=== PATIENT | female | born 1975 | race Two or more races ===

== ENCOUNTER 2018-09-28 22:53 | Emergency (ER) | payer OTHER ==
[2018-09-28] MEDS ORDERED: oxyCODONE-APAP 5-325MG 1 EACH TAB PO STA (23:16)
--- NOTE | 2018-09-28 23:19 | ED ---
Extremity Problem HPI - General Chief complaint: Extremity Problem,Nontraumatic Stated complaint: Leg Pain Time Seen by Provider: 09/28/18 23:09 Source: patient Mode of arrival: ambulatory Limitations: language barrier - History of Present Illness Initial comments: Patient is a 43-year-old female who presents with a chief complaint of right lower extremity pain. She is a history of a right knee replacement in April and a history of a pulmonary embolism, currently not on any anticoagulation. Patient states that this pain has been going on for about a week however much worse today. She cannot identify an inciting incident. There are no aggravating or alleviating factors. Timing is been constant. - Related Data Previous Rx's Medication Instructions Recorded Acetaminophen Tab [Tylenol Tab] 1,000 mg PO Q6HR #20 tablet 09/29/18 Ibuprofen [Motrin] 800 mg PO Q8H #20 tab 09/29/18 Lidocaine 5% Patch [Lidoderm 5% 1 patch TOPICAL DAILY #15 patch 09/29/18 Patch] Allergies Allergy/AdvReac Type Severity Reaction Status Date / Time adhesive Allergy Rash/Hives Verified 09/28/18 23:25 tramadol Allergy Nausea & Verified 09/28/18 23:25 Vomiting & Diarrhea Review of Systems ROS Statement: Those systems with pertinent positive or pertinent negative responses have been documented in the HPI. ROS Other: All systems not noted in ROS Statement are negative. Musculoskeletal: Reports: arthralgia Past Medical History Past Medical History: Asthma, Fibromyalgia History of Any Multi-Drug Resistant Organisms: None Reported Past Surgical History: Cholecystectomy, Orthopedic Surgery, Tubal Ligation Additional Past Surgical History / Comment(s): right knee Past Psychological History: Depression Smoking Status: Never smoker Past Alcohol Use History: None Reported Past Drug Use History: None Reported General Exam Limitations: language barrier General appearance: alert, in no apparent distress Head exam: Present: atraumatic, normocephalic Eye exam: Present: normal appearance ENT exam: Present: normal exam Neck exam: Present: normal inspection Respiratory exam: Present: normal lung sounds bilaterally. Absent: respiratory distress, wheezes Cardiovascular Exam: Present: regular rate, normal rhythm GI/Abdominal exam: Present: soft. Absent: distended, tenderness Rectal exam: Present: deferred Extremities exam: Present: calf tenderness, other (Patient has 2+ palpable pulses bilaterally in the lower extremities. There does not appear to be overt asymmetry between the limbs however the patient does have tenderness palpation of the right calf.) Back exam: Present: normal inspection Neurological exam: Present: alert, oriented X3 Psychiatric exam: Present: normal affect, normal mood Skin exam: Present: warm, dry, intact Course Vital Signs 09/28/18 23:01 Temperature 99.1 F Pulse Rate 85 Respiratory 16 Rate Blood Pressure 114/67 O2 Sat by Pulse 100 Oximetry Medical Decision Making - Medical Decision Making Patient presents with a chief complaint of right lower extremity pain. On initial evaluation, vitals are stable, patient is in no acute distress. She denies any chest pain or shortness of breath. Concern for DVT given past medical history. Clinically, patient does not appear to have any evidence of a pulmonary embolism. She will be evaluated with x-rays of the right knee and lower extremity duplex. Disposition Clinical Impression: Knee pain Disposition: HOME SELF-CARE Condition: Good Instructions (If sedation given, give patient instructions): Knee Pain (ED) Prescriptions: Lidocaine 5% Patch [Lidoderm 5% Patch] 1 patch TOPICAL DAILY #15 patch Ibuprofen [Motrin] 800 mg PO Q8H #20 tab Acetaminophen Tab [Tylenol Tab] 1,000 mg PO Q6HR #20 tablet Is patient prescribed a controlled substance at d/c from ED?: No Referrals: Demarco Welch MD [Primary Care Provider] - 1-2 days Emmanuel Horn MD [Medical Doctor] - 1-2 days
--- NOTE | 2018-09-28 23:45 | XR ---
EXAM: XR Right Knee, 3 views CLINICAL HISTORY: ITS.REASON XR Reason: Pain TECHNIQUE: Three views of the right knee. COMPARISON: No relevant prior studies available. FINDINGS: Bones/joints: Prior knee arthroplasty. No acute fracture. No dislocation. Soft tissues: Unremarkable. IMPRESSION: No acute fracture. Status post knee arthroplasty without signs of hardware complication.
--- NOTE | 2018-09-29 00:18 | US ---
EXAM: US Duplex Right Lower Extremity Veins CLINICAL HISTORY: ITS.REASON US Reason: Pain TECHNIQUE: Real-time duplex ultrasound scan of the right lower extremity veins integrating B-mode two-dimensional vascular structure, Doppler spectral analysis, color flow Doppler imaging and compression. COMPARISON: No relevant prior studies available. FINDINGS: Deep veins: Unremarkable. No DVT in the visualized common femoral, femoral, proximal deep femoral or popliteal veins. The veins demonstrate normal color flow, are normally compressible, with normal phasic flow and/or augmentation response. Superficial veins: Unremarkable. No thrombus in the visualized great saphenous vein. IMPRESSION: No evidence of deep venous thrombosis.
[2018-09-29] MEDS ORDERED: LIDOCAINE 5% PATCH TOPICAL ONE (00:44)
[2018-09-29] MEDS ORDERED: LIDOCAINE 5% PATCH TOPICAL SCH (01:00)
[2018-09-29 01:13] VITALS: BP 138/72; PULSE 75; RESP 18; TEMP 98.6
== END 2018-09-29 01:12 | disposition home or self-care (01) ==
LOC: EC 22:53
DX: M25.561 Pain in right knee (principal); Z86.711 Personal history of pulmonary embolism; Z88.5 Allergy status to narcotic agent; Z91.048 Other nonmedicinal substance allergy status; Z96.651 Presence of right artificial knee joint
CPT/HCPCS: 99284

== ENCOUNTER → 2018-10-20 | Outpatient (CLI) | payer OTHER ==
--- NOTE | 2018-10-20 15:22 | US ---
EXAMINATION TYPE: US thyroid st tissue head/neck DATE OF EXAM: 10/20/2018 COMPARISON: NONE CLINICAL HISTORY: E04.1 Thyroid nodule. Weight gain, hair loss GLAND SIZE: Right Lobe: 5.2 x 1.4 x 1.8 cm Overall Parenchyma: mildly heterogeneous Left Lobe: 5.1 x 1.5 x 1.5 cm Overall Parenchyma: mildly heterogeneous Isthmus Thickness: 0.3 cm NODULES RIGHT: # of nodules measured on right: 0 LEFT: # of nodules measured on left: 0 ISTHMUS: # of nodules measured in the isthmus: 0 Bilateral neck scanned, no evidence of lymphadenopathy. IMPRESSION: Mildly heterogenous thyroid gland without discrete nodule identified.
== END | disposition home or self-care (01) ==
LOC: RADUSWWP 14:39
PROVIDERS: ATTEND Family Medicine
DX: E04.1 Nontoxic single thyroid nodule (principal)
CPT/HCPCS: 76536

== ENCOUNTER → 2018-12-23 | Outpatient (CLI) | payer OTHER ==
--- NOTE | 2018-12-23 10:45 | XR ---
EXAMINATION TYPE: XR chest 2V DATE OF EXAM: 12/23/2018 COMPARISON: NONE HISTORY: Recent cough and follow-up for right lung nodule. TECHNIQUE: Frontal and lateral views of the chest are obtained. FINDINGS: There is no focal air space opacity, pleural effusion, or pneumothorax seen. The cardiac silhouette size is within normal limits. The osseous structures are intact. Cholecystectomy clips a re seen on the lateral view. IMPRESSION: No acute cardiopulmonary process. The described right lung nodule is not seen radiograph ically. If prior comparisons are made for available addendum could be performed. Additionally CT coul d assess for subcentimeter pulmonary nodules.
== END | disposition home or self-care (01) ==
LOC: RADXRMAIN 10:27
PROVIDERS: ATTEND Family Medicine
DX: R91.8 Other nonspecific abnormal finding of lung field (principal)
CPT/HCPCS: 71046

== ENCOUNTER 2019-01-29 13:39 | Emergency (ER) | payer OTHER ==
[2019-01-29] MEDS ORDERED: KETOROLAC 60 MG/2 ML VIAL IM STA (14:14)
[2019-01-29] MEDS ORDERED: predniSONE 50 MG TAB PO STA (14:15)
--- NOTE | 2019-01-29 14:29 | ED ---
General Adult HPI - General Chief complaint: Back Pain/Injury Stated complaint: Knee and back pain Time Seen by Provider: 01/29/19 13:59 Source: patient, RN notes reviewed, old records reviewed Mode of arrival: ambulatory Limitations: language barrier - History of Present Illness Initial comments: 43-year-old female patient presents ED chief complaint of lumbar back pain. Patient reports she with history of febrile myalgia and chronic back pain. Patient reports that has been worsening the last 3 days. Patient ports that demonstrated lumbar and right paralumbar regenerating down her posterior right leg. Patient has an infection symptoms. Patient denies any recent falls or trauma. Denies any lower extremity weakness, loss of bowel or bladder control, saddle anesthesia. Reports that feels similar to back pain she is experiencing a past. Denies any other complaints at this time. States that she cannot be . Systemic: Pt denies fatigue, fever/chills, rash. Pt denies weakness, night sweats, weight loss. Neuro: Pt denies headache, visual disturbances, syncope or pre-syncope. HEENT: Pt denies ocular discharge or irritation, otalgia, rhinorrhea, pharyngitis or notable lymphadenopathy. Cardiopulmonary: Pt denies chest pain, SOB, heart palpitations, dyspnea on exertion. Abdominal/GI: Pt denies abdominal pain, n/v/d. : Pt denies dysuria, burning w/ urination, frequency/urgency. Denies new onset urinary or bowel incontinence. MSK: Pt denies loss of strength or function in extremities. Neuro: Pt denies new onset weakness, paresthesias. - Related Data Previous Rx's Medication Instructions Recorded Ibuprofen [Motrin] 800 mg PO Q8H #20 tab 09/29/18 Cyclobenzaprine [Flexeril] 1 - 2 tab PO TID #20 tablet 01/29/19 predniSONE 50 mg PO DAILY 4 Days #4 tab 01/29/19 Allergies Allergy/AdvReac Type Severity Reaction Status Date / Time adhesive Allergy Rash/Hives Verified 01/29/19 13:56 tramadol Allergy Nausea & Verified 01/29/19 13:56 Vomiting & Diarrhea Review of Systems ROS Statement: Those systems with pertinent positive or pertinent negative responses have been documented in the HPI. ROS Other: All systems not noted in ROS Statement are negative. Past Medical History Past Medical History: Asthma, Fibromyalgia History of Any Multi-Drug Resistant Organisms: None Reported Past Surgical History: Cholecystectomy, Orthopedic Surgery, Tubal Ligation Additional Past Surgical History / Comment(s): right knee Past Psychological History: Depression Smoking Status: Never smoker Past Alcohol Use History: None Reported Past Drug Use History: None Reported General Exam - General Exam Comments Initial Comments: Constitutional: NAD, AOX3, Pt has pleasant affect. HEENT: NC/AT, trachea midline, neck supple, no lymphadenopathy. Posterior pharynx non erythematous, without exudates. External ears appear normal, without discharge. Mucous membranes moist. Eyes PERRLA, EOM intact. There is no scleral icterus. No pallor noted. Cardiopulmonary: RRR, no murmurs, rubs or gallops, no JVD noted. Lungs CTAB in anterior and posterior rogers. No peripheral edema. Abdominal exam: Abdomen soft and non-distended. Abdomen non-tender to palpation in all 4 quadrants. Bowel sounds active in LLQ. No hepatosplenomegaly. No ecchymosis Neuro: CN II-XII grossly intact. No nuchal rigidity. No raccon eyes, no elizabeth sign, no hemotympanum. No cervical spinal tenderness. MSK: Right paralumbar region tender to palpation. 5 out of 5 strength psoas quadriceps muscles. Sensation intact. Patient is ambulatory. Right Straight leg raise positive, left straight leg raise negative. No posterior calf tenderness bilaterally, homans sign negative bilaterally. Posterior tibialis and radial pulse +2 bilaterally. Sensation intact in upper and lower extremities. Full active ROM in upper and lower extremities, 5/5 stregnth. Limitations: language barrier Course Vital Signs 01/29/19 13:54 Temperature 98.1 F Pulse Rate 93 Respiratory 20 Rate Blood Pressure 110/67 O2 Sat by Pulse 99 Oximetry Medical Decision Making - Medical Decision Making 43-year-old female patient with a chief complaint of exacerbation of chronic paralumbar back pain. Patient reports that she cannot be . Patient will signs stable, afebrile. Physical exam was consistent with paralumbar back strain with mild radiculopathy. She declined plain films. Patient will be discharged with steroids, muscle relaxer, advised to use anti-inflammatories, follow up with primary care provider and will be given orthopedic follow sym ptoms persist. Case discussed with Dr. Torres. Disposition Clinical Impression: Lumbar back pain Disposition: HOME SELF-CARE Condition: Stable Instructions (If sedation given, give patient instructions): Acute Low Back Pain (ED) Additional Instructions: Patient to adhere to previously discussed treatment plan and will take medication(s) as directed. Patient to follow up with PCP in 1-2 days. Patient to return to ED if symptoms do not improve. Follow-up with primary care provider tomorrow. Follow with orthopedic consult symptoms persist. Return to ER if condition worsens. Prescriptions: Cyclobenzaprine [Flexeril] 1 - 2 tab PO TID #20 tablet predniSONE 50 mg PO DAILY 4 Days #4 tab Is patient prescribed a controlled substance at d/c from ED?: No Referrals: Demarco Welch MD [Primary Care Provider] - 1-2 days Cira Rivas DO [Doctor of Osteopathic Medicine] - 1-2 days
[2019-01-29] MEDS ORDERED: CYCLOBENZAPRINE 5 MG TAB PO STA (15:08)
[2019-01-29 15:21] VITALS: BP 112/70; PULSE 87; RESP 18; TEMP 98
== END 2019-01-29 15:20 | disposition home or self-care (01) ==
LOC: EC 13:39
DX: M54.5 Low back pain (principal); Z88.5 Allergy status to narcotic agent; Z91.048 Other nonmedicinal substance allergy status; Z53.20 Procedure and treatment not carried out because of patient's decision for unspecified reasons
CPT/HCPCS: 99284; 96372; J1885; J7512

== ENCOUNTER → 2019-02-19 | Outpatient (CLI) | payer OTHER ==
--- NOTE | 2019-02-19 12:39 | CT ---
EXAMINATION TYPE: CT knee RT wo con DATE OF EXAM: 02/19/2019 COMPARISON: CT 9 6.651 HISTORY: TOTAL RIGHT ARTHROPLASTY CT DLP: 502.3 mGycm Automated exposure control for dose reduction was used. FINDINGS: Right knee prosthesis is present. This causes beam hardening artifact and may have some limitation on the exam. No suspicious lucency adjacent to suggest loosening is evident. No acute fractures are evident. Muscl e signal and subcutaneous signal appears normal. No abnormal fluid collections are identified. IMPRESSION: NORMAL POST RIGHT KNEE PROSTHESIS.
[2019-02-19 13:04] LABS: Basophils # (A) 0.1 k/uL (0-0.2); Basophils % (A) 1 %; Eosinophils # (A) 0.1 k/uL (0-0.7); Eosinophils % (A) 1 %; HGB 11.8 gm/dL (11.4-16.0); Lymphocytes # (A) 1.8 k/uL (1.0-4.8); Lymphocytes % (A) 22 %; MCH 28.7 pg (25.0-35.0); MCHC 32.9 g/dL (31.0-37.0); MCV 87.4 fL (80.0-100.0); Mean Platelet Volume 6.4; Monocytes # (A) 0.3 k/uL (0-1.0); Monocytes % (A) 3 %; Neutrophils # (A) 5.9 k/uL (1.3-7.7); Neutrophils % (A) 72 %; Platelet Count 279 k/uL (150-450); RBC 4.13 m/uL (3.80-5.40); RDW 13.9 % (11.5-15.5); WBC 8.2 k/uL (3.8-10.6)
[2019-02-19 14:07] LABS: Erythrocyte Sedimentation Rate 28 mm/hr (0-20)
[2019-02-19 14:31] LABS: ALT 19 U/L (9-52); AST 19 U/L (14-36); African American GFR (CKD) >90 (>60 ml/min/1.73 sqM); Albumin 3.8 g/dL (3.5-5.0); Alkaline Phosphatase 79 U/L (38-126); Anion Gap 5 mmol/L; Blood Urea Nitrogen 13 mg/dL (7-17); C Reactive Protein 14.7 mg/L (<10.0); Calcium 8.9 mg/dL (8.4-10.2); Carbon Dioxide 29 mmol/L (22-30); Chloride 104 mmol/L (98-107); Cholesterol 147 mg/dL (<200); Glucose 89 mg/dL (74-99); HDL Cholesterol 52 mg/dL (40-60); LDL Cholesterol,Calculated 81 mg/dL (0-99); Potassium 4.2 mmol/L (3.5-5.1); Sodium 138 mmol/L (137-145); Total Bilirubin 0.5 mg/dL (0.2-1.3); Total Protein 7.4 g/dL (6.3-8.2); Triglycerides 68 mg/dL (<150)
[2019-02-19 20:17] LABS: Hemoglobin A1C 5.1 % (4.0-6.0)
[2019-02-20 02:40] LABS: Folate, Serum 10.1 ng/mL
== END | disposition home or self-care (01) ==
LOC: RADCTMAIN 12:03
PROVIDERS: ATTEND Orthopaedic Surgery
DX: Z47.1 Aftercare following joint replacement surgery (principal); J45.50 Severe persistent asthma, uncomplicated; M79.7 Fibromyalgia; M25.561 Pain in right knee; Z96.651 Presence of right artificial knee joint
CPT/HCPCS: 36415; 80053; 80061; 82306; 82607; 82746; 83036; 84443; 84480; 84550; 85025; 85652; 86038; 86140

== ENCOUNTER 2019-07-07 20:32 | Emergency (ER) | payer OTHER ==
[2019-07-07] MEDS ORDERED: KETOROLAC 30 MG/ML 1 ML VIAL IVP STA (21:58)
[2019-07-07] MEDS ORDERED: SODIUM CHLORIDE 0.9% 1,000 ML IV STA (21:58)
[2019-07-07] MEDS ORDERED: ONDANSETRON 4 MG/2 ML VIAL IVP STA (21:58)
[2019-07-07 21:59] LABS: Appearance,Urine Clear (Clear); Bilirubin,Urine Negative (Negative); Blood,Urine Negative (Negative); Color,Urine Yellow; Glucose,Urine (UA) Negative (Negative); Ketones,Urine Negative (Negative); Leukocyte Esterase,Urine Negative (Negative); Nitrite,Urine Negative (Negative); PH, Urine 7.5 (5.0-8.0); Protein,Urine Negative (Negative); Specific Gravity,Urine 1.014 (1.001-1.035); Urobilinogen,Urine <2.0 mg/dL (<2.0)
[2019-07-07 22:37] LABS: ALT 17 U/L (4-34); AST 25 U/L (14-36); African American GFR (CKD) >90 (>60 ml/min/1.73 sqM); Albumin 3.9 g/dL (3.5-5.0); Alkaline Phosphatase 71 U/L (38-126); Amylase 48 U/L (30-110); Anion Gap 6 mmol/L; Blood Urea Nitrogen 9 mg/dL (7-17); Calcium 8.8 mg/dL (8.4-10.2); Carbon Dioxide 25 mmol/L (22-30); Chloride 104 mmol/L (98-107); Glucose 96 mg/dL (74-99); Non-African American GFR(CKD) >90 (>60 ml/min/1.73 sqM); Potassium 4.4 mmol/L (3.5-5.1); Sodium 135 mmol/L (137-145); Total Bilirubin 0.4 mg/dL (0.2-1.3); Total Protein 7.4 g/dL (6.3-8.2)
[2019-07-07 22:38] LABS: Basophils % (A) 0 %; Eosinophils # (A) 0.1 k/uL (0-0.7); Eosinophils % (A) 1 %; HCT 35.9 % (34.0-46.0); HGB 11.6 gm/dL (11.4-16.0); Lymphocytes # (A) 1.8 k/uL (1.0-4.8); Lymphocytes % (A) 19 %; MCH 28.2 pg (25.0-35.0); MCHC 32.3 g/dL (31.0-37.0); MCV 87.2 fL (80.0-100.0); Monocytes # (A) 0.4 k/uL (0-1.0); Monocytes % (A) 4 %; Neutrophils # (A) 6.9 k/uL (1.3-7.7); Neutrophils % (A) 74 %; Platelet Count 253 k/uL (150-450); RBC 4.12 m/uL (3.80-5.40); RDW 14.4 % (11.5-15.5); WBC 9.4 k/uL (3.8-10.6)
[2019-07-07] MEDS ORDERED: HYDROmorphone 0.5 MG/0.5 ML SYRINGE IVP STA (23:34)
[2019-07-08] MEDS ORDERED: ACET/COD 300 MG/30 MG STARTER PACK 6 TAB BTL PO STA (00:13)
--- NOTE | 2019-07-08 00:13 | ED ---
General Adult HPI - General Chief complaint: Abdominal Pain Stated complaint: Kidney Pain Time Seen by Provider: 07/07/19 21:47 Source: patient, RN notes reviewed Mode of arrival: ambulatory Limitations: no limitations - History of Present Illness Initial comments: 43-year-old female with a past medical history of asthma and fibromyalgia presents to the emergency department for right flank pain. This has been ongoing since yesterday. Denies any pain in the abdomen. Denies any dysuria. Denies any difficulty urinating. Patient was seen at another facility yesterday for similar complaint. Denies fevers or chills. States she is currently taking an antibiotic for urinary tract infection.Patient has no other complaints at this time including shortness of breath, chest pain, abdominal pain, nausea or vomiting, headache, or visual changes. - Related Data Previous Rx's Medication Instructions Recorded Ibuprofen [Motrin] 800 mg PO Q8H #20 tab 09/29/18 Cyclobenzaprine [Flexeril] 1 - 2 tab PO TID #20 tablet 01/29/19 predniSONE 50 mg PO DAILY 4 Days #4 tab 01/29/19 Allergies Allergy/AdvReac Type Severity Reaction Status Date / Time adhesive Allergy Rash/Hives Verified 07/07/19 21:20 tramadol Allergy Nausea & Verified 07/07/19 21:20 Vomiting & Diarrhea Review of Systems ROS Statement: Those systems with pertinent positive or pertinent negative responses have been documented in the HPI. ROS Other: All systems not noted in ROS Statement are negative. Past Medical History Past Medical History: Asthma, Fibromyalgia History of Any Multi-Drug Resistant Organisms: None Reported Past Surgical History: Cholecystectomy, Orthopedic Surgery, Tubal Ligation Additional Past Surgical History / Comment(s): right knee Past Psychological History: Depression Smoking Status: Never smoker Past Alcohol Use History: None Reported Past Drug Use History: None Reported General Exam Limitations: no limitations General appearance: alert, in no apparent distress Head exam: Present: atraumatic, normocephalic, normal inspection Eye exam: Present: normal appearance, PERRL, EOMI. Absent: scleral icterus, conjunctival injection, periorbital swelling ENT exam: Present: normal exam, mucous membranes moist Neck exam: Present: normal inspection, full ROM. Absent: tenderness, meningismus Respiratory exam: Present: normal lung sounds bilaterally. Absent: respiratory distress, wheezes, rales, rhonchi, stridor Cardiovascular Exam: Present: regular rate, normal rhythm, normal heart sounds. Absent: systolic murmur, diastolic murmur, rubs, gallop, clicks GI/Abdominal exam: Present: soft, normal bowel sounds. Absent: distended, tenderness (No abdominal tenderness), guarding, rebound, rigid Back exam: Present: CVA tenderness (R). Absent: CVA tenderness (L) Course Vital Signs 07/07/19 21:17 Temperature 98.2 F Pulse Rate 86 Respiratory 20 Rate Blood Pressure 121/74 O2 Sat by Pulse 99 Oximetry Medical Decision Making - Medical Decision Making Vitals are stable. CBC and CMP are unremarkable. Urinalysis is negative. X- ray KUB showed a negative x-ray. Patient was given Toradol which did not help with her pain. She was then given Dilaudid which did help. Patient does have a ride home. I reviewed Skin report from [facility] from 07/07/2019 which showed a new mild to moderate right-sided hydronephrosis without obstructing calculus, consider vesicoureteral reflux or delayed excretion from slightly prominent anteverted uterus with a hydroureter terminates at this level. Other etiologies not excluded. Otherwise no new acute finding to present I discussed that patient needs to follow up with urology in 1-2 days. She'll continue the antibiotic although urine at this time looks clear. She'll return for any worsening symptoms. - Lab Data Result diagrams: 07/07/19 22:16 07/07/19 22:16 Lab Results 07/07/19 07/07/19 07/07/19 Range/Units 21:26 21:26 22:16 WBC 9.4 (3.8-10.6) k/uL RBC 4.12 (3.80-5.40) m/uL Hgb 11.6 (11.4-16.0) gm/dL Hct 35.9 (34.0-46.0) % MCV 87.2 (80.0-100.0) fL MCH 28.2 (25.0-35.0) pg MCHC 32.3 (31.0-37.0) g/dL RDW 14.4 (11.5-15.5) % Plt Count 253 (150-450) k/uL Neutrophils % 74 % Lymphocytes % 19 % Monocytes % 4 % Eosinophils % 1 % Basophils % 0 % Neutrophils # 6.9 (1.3-7.7) k/uL Lymphocytes # 1.8 (1.0-4.8) k/uL Monocytes # 0.4 (0-1.0) k/uL Eosinophils # 0.1 (0-0.7) k/uL Basophils # 0.0 (0-0.2) k/uL Sodium (137-145) mmol/L Potassium (3.5-5.1) mmol/L Chloride (98-107) mmol/L Carbon Dioxide (22-30) mmol/L Anion Gap mmol/L BUN (7-17) mg/dL Creatinine (0.52-1.04) mg/dL Est GFR (CKD-EPI)AfAm (>60 ml/min/1.73 sqM) Est GFR (CKD-EPI)NonAf (>60 ml/min/1.73 sqM) Glucose (74-99) mg/dL Calcium (8.4-10.2) mg/dL Total Bilirubin (0.2-1.3) mg/dL AST (14-36) U/L ALT (4-34) U/L Alkaline Phosphatase (38-126) U/L Total Protein (6.3-8.2) g/dL Albumin (3.5-5.0) g/dL Amylase (30-110) U/L Lipase (23-300) U/L Urine Color Yellow Urine Appearance Clear (Clear) Urine pH 7.5 (5.0-8.0) Ur Specific [place] 1.014 (1.001-1.035) Urine Protein Negative (Negative) Urine Glucose (UA) Negative (Negative) Urine Ketones Negative (Negative) Urine Blood Negative (Negative) Urine Nitrite Negative (Negative) Urine Bilirubin Negative (Negative) Urine Urobilinogen <2.0 (<2.0) mg/dL Ur Leukocyte Esterase Negative (Negative) Urine HCG, Qual Not Detected (Not Detectd) 07/07/19 Range/Units 22:16 WBC (3.8-10.6) k/uL RBC (3.80-5.40) m/uL Hgb (11.4-16.0) gm/dL Hct (34.0-46.0) % MCV (80.0-100.0) fL MCH (25.0-35.0) pg MCHC (31.0-37.0) g/dL RDW (11.5-15.5) % Plt Count (150-450) k/uL Neutrophils % % Lymphocytes % % Monocytes % % Eosinophils % % Basophils % % Neutrophils # (1.3-7.7) k/uL Lymphocytes # (1.0-4.8) k/uL Monocytes # (0-1.0) k/uL Eosinophils # (0-0.7) k/uL Basophils # (0-0.2) k/uL Sodium 135 L (137-145) mmol/L Potassium 4.4 (3.5-5.1) mmol/L Chloride 104 (98-107) mmol/L Carbon Dioxide 25 (22-30) mmol/L Anion Gap 6 mmol/L BUN 9 (7-17) mg/dL Creatinine 0.76 (0.52-1.04) mg/dL Est GFR (CKD-EPI)AfAm >90 (>60 ml/min/1.73 sqM) Est GFR (CKD-EPI)NonAf >90 (>60 ml/min/1.73 sqM) Glucose 96 (74-99) mg/dL Calcium 8.8 (8.4-10.2) mg/dL Total Bilirubin 0.4 (0.2-1.3) mg/dL AST 25 (14-36) U/L ALT 17 (4-34) U/L Alkaline Phosphatase 71 (38-126) U/L Total Protein 7.4 (6.3-8.2) g/dL Albumin 3.9 (3.5-5.0) g/dL Amylase 48 (30-110) U/L Lipase 62 (23-300) U/L Urine Color Urine Appearance (Clear) Urine pH (5.0-8.0) Ur Specific [place] (1.001-1.035) Urine Protein (Negative) Urine Glucose (UA) (Negative) Urine Ketones (Negative) Urine Blood (Negative) Urine Nitrite (Negative) Urine Bilirubin (Negative) Urine Urobilinogen (<2.0) mg/dL Ur Leukocyte Esterase (Negative) Urine HCG, Qual (Not Detectd) Disposition Clinical Impression: Hydronephrosis Disposition: HOME SELF-CARE Condition: Good Additional Instructions: Take Motrin and Tylenol for pain. If pain is severe take Tylenol 3. Do not drive or operate machinery while taking this. Please follow up with urology in 1-2 days. Return to the emergency department if you have any worsening symptoms. Is patient prescribed a controlled substance at d/c from ED?: No Referrals: Sondra Ortiz MD [Primary Care Provider] - 1-2 days Win Garg MD [STAFF PHYSICIAN] - 1-2 days Time of Disposition: 00:12
--- NOTE | 2019-07-08 00:17 | XR ---
EXAMINATION TYPE: XR KUB DATE OF EXAM: 07/07/2019 COMPARISON: NONE HISTORY: Pain TECHNIQUE: 2 views upright FINDINGS: Bowel gas pattern is normal. There is no sign of intestinal obstruction or pneumoperitoneum . Fecal pattern is normal. Lung bases are clear. There are no pathologic calcifications over the kidneys. IMPRESSION: Nonacute abdomen.
[2019-07-08 00:20] VITALS: BP 125/65; PULSE 70; RESP 18; TEMP 98
== END 2019-07-08 00:22 | disposition home or self-care (01) ==
LOC: EC 20:32
DX: N13.30 Unspecified hydronephrosis (principal); N85.4 Malposition of uterus; Z91.048 Other nonmedicinal substance allergy status; Z88.6 Allergy status to analgesic agent; Z90.49 Acquired absence of other specified parts of digestive tract
CPT/HCPCS: 36415; 80053; 82150; 83690; 85025; 81003; 81025; 74018; 99284; 96374; 96375 ×2; 96361 ×2; J2405; J1885; J1170

== ENCOUNTER 2019-10-29 18:50 | Emergency (ER) | payer OTHER ==
[2019-10-29 18:54] VITALS: BP 127/68; PULSE 72; RESP 16; TEMP 98.9
[2019-10-29] MEDS ORDERED: KETOROLAC 60 MG/2 ML VIAL IM STA (19:10)
--- NOTE | 2019-10-29 19:12 | ED ---
Lower Extremity Injury HPI - General Chief Complaint: Extremity Injury, Lower Stated Complaint: rt knee pain Time Seen by Provider: 10/29/19 19:02 Source: patient Mode of arrival: wheelchair Limitations: no limitations - History of Present Illness Initial Comments: Patient is a 44-year-old female presenting to the emergency Department with complaints of right knee pain 2-3 days. Patient speaks little Armenian, is helping to translate. She does have history of total knee replacement approximately one year ago. states that there seems to be an issue with the hardware and she is set to have another surgery at the end of this month. She denies any injuries or fall to the knee. She states she does have a history of a DVT in the right lower leg after she had her surgery. She is no longer on blood thinners. She denies any recent fever, chills, nausea, vomiting. She states the pain, started out of nowhere and has been progressing. She has no further complaints at this time. Upon arrival to the ER, her vitals are stable. - Related Data Previous Rx's Medication Instructions Recorded Ibuprofen [Motrin] 800 mg PO Q8H #20 tab 09/29/18 Cyclobenzaprine [Flexeril] 1 - 2 tab PO TID #20 tablet 01/29/19 predniSONE 50 mg PO DAILY 4 Days #4 tab 01/29/19 Hydrocodone/Acetaminophen [[place] 1 tab PO Q6HR PRN #10 tab 10/29/19 5-325] Allergies Allergy/AdvReac Type Severity Reaction Status Date / Time adhesive Allergy Rash/Hives Verified 10/29/19 18:54 tramadol Allergy Nausea & Verified 10/29/19 18:54 Vomiting & Diarrhea Review of Systems ROS Statement: Those systems with pertinent positive or pertinent negative responses have been documented in the HPI. ROS Other: All systems not noted in ROS Statement are negative. Past Medical History Past Medical History: Asthma, Fibromyalgia History of Any Multi-Drug Resistant Organisms: None Reported Past Surgical History: Cholecystectomy, Orthopedic Surgery, Tubal Ligation Additional Past Surgical History / Comment(s): right knee Past Psychological History: Depression Smoking Status: Never smoker Past Alcohol Use History: None Reported Past Drug Use History: None Reported General Exam - General Exam Comments Initial Comments: GENERAL: Well-appearing, well-nourished and in no acute distress. HEAD: Atraumatic, normocephalic. EYES: Pupils equal round and reactive to light, extraocular movements intact, sclera anicteric, conjunctiva are normal. ENT: TMs normal, nares patent, oropharynx clear without exudates. Moist mucous membranes. NECK: Normal range of motion, supple without lymphadenopathy or JVD. LUNGS: Breath sounds clear to auscultation bilaterally and equal. No wheezes rales or rhonchi. HEART: Regular rate and rhythm without murmurs, rubs or gallops. ABDOMEN: Soft, nontender, normoactive bowel sounds. No guarding, no rebound. No masses appreciated. : Deferred EXTREMITIES: Pain with palpation of the right anterior and posterior aspects of the knee, decreased range of motion secondary to pain. She is neurovascular intact. There is no overlying erythema or significant swelling. No clubbing or cyanosis. NEUROLOGICAL: Normal speech, normal gait. PSYCH: Normal mood, normal affect. SKIN: Warm, Dry, normal turgor, no rashes or lesions noted. Limitations: no limitations Course Vital Signs 10/29/19 18:51 Temperature 98.9 F Pulse Rate 72 Respiratory 16 Rate Blood Pressure 127/68 O2 Sat by Pulse 99 Oximetry Medical Decision Making - Medical Decision Making Patient is a 44-year-old female here for right knee pain 3 days. She has history of right total knee replacement one year ago. No fever. History of DVT in right lower extremity, not currently on thinners. X-ray of the right knee reveals no acute fractures, dislocations, hardware is in place. Ultrasound of the right lower extremity reveals no evidence of an acute DVT. I did discuss these findings with the patient. I recommended she follow up with her surgeon. She was given Toradol in the ER. She is in agreement with this plan of care. She is stable for discharge and patient is agreement with this plan of care. Case discussed with Dr. Viera. Disposition Clinical Impression: Right knee pain Disposition: HOME SELF-CARE Condition: Stable Instructions (If sedation given, give patient instructions): Knee Pain (ED) Additional Instructions: Please return to the Emergency Department if symptoms worsen or any other concerns. Please follow up with orthopedic surgeon as discussed. Make sure to elevate the leg above the heart level as well as use ice to the area. Prescriptions: Hydrocodone/Acetaminophen [[place] 5-325] 1 tab PO Q6HR PRN #10 tab PRN Reason: Pain Is patient prescribed a controlled substance at d/c from ED?: Yes When asked, does pt state using other controlled substances?: No If prescribed controlled substance>3 days was MAPS reviewed?: Prescribed <3 Days If opioid is for acute pain is fill amount 7 days or less?: Yes If Rx opioid, was Start Talking consent form obtained?: Yes Referrals: Sondra Ortiz MD [Primary Care Provider] - 1-2 days
--- NOTE | 2019-10-29 19:45 | XR ---
EXAMINATION TYPE: XR knee complete RT DATE OF EXAM: 10/29/2019 CLINICAL HISTORY: September 28, 2018 TECHNIQUE: Three views of the right knee are obtained. COMPARISON: None. FINDINGS: There is no acute fracture/dislocation. Total knee arthroplasty is in place. The overlying soft tissue appears unremarkable. IMPRESSION: There is no acute fracture or dislocation.ICD 10 NO FRACTURE, INITIAL EVALUATION
--- NOTE | 2019-10-29 20:14 | US ---
EXAMINATION TYPE: US venous doppler duplex LE RT DATE OF EXAM: 10/29/2019 7:11 PM COMPARISON: US CLINICAL HISTORY: pain, swelling. Pain and swelling x 1 year since knee replacement 1 year ago. Patie nt had a second surgery on the knee 10/19/2019. Hx of DVT and PE. Patient does not take a blood thinne r. SIDE PERFORMED: Right TECHNIQUE: The lower extremity deep venous system is examined utilizing real time linear array sonog ridge with graded compression, doppler sonography and color-flow sonography. VESSELS IMAGED: External Iliac Vein (EIV) Common Femoral Vein Deep Femoral Vein Greater Saphenous Vein * Femoral Vein Popliteal Vein Small Saphenous Vein * Proximal Calf Veins (* superficial vessels) Right Leg: No evidence of DVT in veins imaged at this time from prox calf veins to EIV. IMPRESSION: No evidence for DVT at this time.
== END 2019-10-29 20:36 | disposition home or self-care (01) ==
LOC: EC 18:50
DX: M25.561 Pain in right knee (principal); Z88.6 Allergy status to analgesic agent; Z91.048 Other nonmedicinal substance allergy status; Z96.651 Presence of right artificial knee joint; Z86.718 Personal history of other venous thrombosis and embolism
CPT/HCPCS: 73562; 93971; 99284; 96372; J1885

== ENCOUNTER 2020-04-27 14:19 | Emergency (ER) | payer OTHER ==
--- NOTE | 2020-04-27 15:01 | XR ---
EXAMINATION TYPE: XR chest 1V portable DATE OF EXAM: 04/27/2020 Comparison: 12/23/2018 Clinical History: 44-year-old female cough Findings: AP portable technique limited by underpenetration and large body habitus. Heart size is accentuated l ikely due to portable technique. There is some patchy medial right basilar opacity noted. No other co nsolidation or pleural effusion. Impression: Some patchy medial right basilar atelectasis versus early infiltrate. Clinically correlate.
[2020-04-27] MEDS ORDERED: cefTRIAXone 1,000 MG VIAL (IM USE) IM STA (15:52)
--- NOTE | 2020-04-27 15:58 | ED ---
General Adult HPI - General Chief complaint: Upper Respiratory Infection Stated complaint: Headache,Body aches Time Seen by Provider: 04/27/20 14:25 Source: patient, RN notes reviewed Mode of arrival: ambulatory Limitations: no limitations - History of Present Illness Initial comments: 44-year-old female with a past medical history of asthma, fibromyalgia presents to the emergency room for a chief complaint of cough. Patient has had a cough for the past couple days. She has also had fever in the past. She states she has taken NSAIDs today. She denies shortness of breath. Patient denies any known Covid exposures. She does admit to congestion and a slight sore throat. She denies any chest pain. Denies any abdominal pain or nausea vomiting. Patient has no other complaints at this time including shortness of breath, chest pain, abdominal pain, nausea or vomiting, headache, or visual changes. - Related Data Previous Rx's Medication Instructions Recorded Ibuprofen [Motrin] 800 mg PO Q8H #20 tab 09/29/18 Cyclobenzaprine [Flexeril] 1 - 2 tab PO TID #20 tablet 01/29/19 predniSONE 50 mg PO DAILY 4 Days #4 tab 01/29/19 Hydrocodone/Acetaminophen [[place] 1 tab PO Q6HR PRN #10 tab 10/29/19 5-325] Albuterol Inhaler [Ventolin Hfa 2 puff INHALATION RT-QID PRN #1 04/27/20 Inhaler] inhaler Azithromycin [Zithromax Z-pack (6 250 mg PO DIRECTED #6 tab 04/27/20 tabs)] predniSONE 50 mg PO DAILY #5 tablet 04/27/20 Allergies Allergy/AdvReac Type Severity Reaction Status Date / Time adhesive Allergy Rash/Hives Verified 04/27/20 14:23 tramadol Allergy Nausea & Verified 04/27/20 14:23 Vomiting & Diarrhea Review of Systems ROS Statement: Those systems with pertinent positive or pertinent negative responses have been documented in the HPI. ROS Other: All systems not noted in ROS Statement are negative. Past Medical History Past Medical History: Asthma, Fibromyalgia History of Any Multi-Drug Resistant Organisms: None Reported Past Surgical History: Cholecystectomy, Orthopedic Surgery, Tubal Ligation Additional Past Surgical History / Comment(s): right knee Past Psychological History: Depression Smoking Status: Never smoker Past Alcohol Use History: None Reported Past Drug Use History: None Reported General Exam Limitations: no limitations General appearance: alert, in no apparent distress Head exam: Present: atraumatic, normocephalic, normal inspection Eye exam: Present: normal appearance, PERRL, EOMI. Absent: scleral icterus, conjunctival injection, periorbital swelling ENT exam: Present: normal exam, normal oropharynx (Uvula midline, no tonsillar exudates bilaterally), mucous membranes moist, TM's normal bilaterally, normal external ear exam Neck exam: Present: normal inspection, full ROM. Absent: tenderness, meningismus, lymphadenopathy Respiratory exam: Present: normal lung sounds bilaterally. Absent: respiratory distress, wheezes, rales, rhonchi, stridor Cardiovascular Exam: Present: regular rate, normal rhythm, normal heart sounds. Absent: systolic murmur, diastolic murmur, rubs, gallop, clicks GI/Abdominal exam: Present: soft, normal bowel sounds. Absent: distended, tenderness, guarding, rebound, rigid Neurological exam: Present: alert Course Vital Signs 04/27/20 04/27/20 14:20 15:20 Temperature 98.7 F Pulse Rate 87 Respiratory 20 16 Rate Blood Pressure 120/77 O2 Sat by Pulse 100 Oximetry Medical Decision Making - Medical Decision Making Vitals are stable. 100% on room air. Afebrile. Normal heart rate. Physical exam is unremarkable. She does have a mild cough. No chest pain or shortness of breath. Chest x-ray does show some patchy medial right basilar atelectasis versus early infiltrate. Given fever and cough she will be treated with azithromycin. Coronavirus test is pending. PCR was done instead of a rapid as hospitals requesting these be done for discharge patient's given shortage. However patient will quarantine until she has her results. She will take Motrin and Tylenol for fever. She will take vitamins as we discussed. She will also be given steroid and inhaler as she does have a history of asthma. She will return here for any worsening symptoms such as shortness of breath which were discussed with her. Disposition Clinical Impression: Pneumonia, Cough, COVID-19 virus test result unknown Disposition: HOME SELF-CARE Condition: Good Instructions (If sedation given, give patient instructions): Pneumonia (ED) Additional Instructions: Please take antibiotic as directed. Take Motrin and Tylenol as needed for fever. Please take vitamins C, D, and zinc. Follow up on Coronavirus results and make sure to quarantine until you have these. Return to the emergency room for any worsening symptoms. Prescriptions: predniSONE 50 mg PO DAILY #5 tablet Albuterol Inhaler [Ventolin Hfa Inhaler] 2 puff INHALATION RT-QID PRN #1 inhaler PRN Reason: Shortness Of Breath Azithromycin [Zithromax Z-pack (6 tabs)] 250 mg PO DIRECTED #6 tab Is patient prescribed a controlled substance at d/c from ED?: No Referrals: Sondra Ortiz MD [Primary Care Provider] - 1-2 days Time of Disposition: 15:56
[2020-04-27 16:15] VITALS: BP 134/73; PULSE 74; RESP 18; TEMP 98.2
== END 2020-04-27 16:15 | disposition home or self-care (01) ==
LOC: EC 14:19
DX: J18.9 Pneumonia, unspecified organism (principal); Z20.828 Contact with and (suspected) exposure to other viral communicable diseases; Z88.5 Allergy status to narcotic agent; Z91.048 Other nonmedicinal substance allergy status
CPT/HCPCS: 71045; 99283; 96372; U0003; J0696

== ENCOUNTER → 2020-10-12 | Outpatient (CLI) | payer OTHER ==
[2020-10-12 16:15] VITALS: BMI 44.2
[2020-10-12 16:34] VITALS: BP 121/70; PULSE 83; RESP 18; TEMP 98.1
--- NOTE | 2020-10-12 16:43 | P.HPBAR ---
Bariatric H&P - History & Physicial H&P Date: 10/12/20 History & Physicial: Visit/CC: initial visit Patient initial contact: Initial weight: Initial weight in pounds: Height: 4 ft 11.5 in Initial BMI: Last weight: Current weight: 101.151 kg Current weight in pounds: 223.00 Current BMI: 44.2 [place] body weight (based on NIH guidelines): 44.225 kg Excess body weight loss: The patient is a 45 year-old F who presents for Bariatric Assessment. DATE OF SERVICE: 10/12/2020 REASON FOR CONSULTATION: Initial bariatric evaluation. HISTORY OF PRESENT ILLNESS: Venessa Romo is a 45-year-old female who comes with lifelong morbid obesity. She is looking into the gastric sleeve adelaida rectomy. Her brother has obesity. 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 She has tried Keto diet, drop count associate, Adipex and walking. Her most weight loss is 4 to 5 pounds. She has gastroesophageal reflux disease. She reports trouble with spicey foods. She does not have her gallbladder. She denies food gets stuck. She has prior right knee replacement. She reports severe lower back pain and has mild hip pain. She has blood clots from surgery. She needs 1 year of medical supervised weight loss. She has completed 2 months. She had cholecytectomy. She had tubal ligation. She presents first time in consultation for surgical weight loss. At height of 4 feet 11.5 inches, her ideal body weight is 123 pounds. Highest weight is 225 pounds with body mass index 44.8. She comes in 223 pounds. Her body mass index is 44.3. She is 100 pounds overweight. PAST MEDICAL HISTORY: 1. Morbid obesity due to excess calories 2. Body mass index of 44.3, initial 3. Chronic obstructive pulmonary disease with asthma 4. Fibromyalgia 5. Obstructive sleep apnea 6. Osteoarthritis of the knees. 7. Gastroesophageal reflux disease. 8. Osteoarthritis lower back 9. Osteoarthritis of the hip 10. DVT PAST SURGICAL HISTORY: 1. Cholecystectomy 2. Tubal ligation 3. Bilateral knee replacement HOME MEDICATIONS: Home Medications Medication Instructions Recorded Confirmed Beclomethasone Dipropionate [Qvar 2 puff PO BID 10/12/20 12/14/20 80mcg Redihaler] Famotidine [Pepcid] 10 mg PO HS 12/14/20 12/14/20 Previous Rx's Medication Instructions Recorded Hydrocodone/Acetaminophen [[place] 1 tab PO Q6HR PRN #10 tab 10/29/19 5-325] Albuterol Inhaler [Ventolin Hfa 2 puff INHALATION RT-QID PRN #1 04/27/20 Inhaler] inhaler Omeprazole [PriLOSEC] 40 mg PO DAILY #14 cap 12/14/20 ALLERGIES: Allergies Allergy/AdvReac Type Severity Reaction Status Date / Time adhesive Allergy Rash/Hives Verified 12/14/20 14:37 tramadol Allergy Nausea & Verified 12/14/20 14:37 Vomiting & Diarrhea SOCIAL HISTORY: Denies past tobacco use. FAMILY HISTORY: No family history of ulcerative colitis disease or Crohn's disease. Family history of morbid obesity. No lupus in the family. No reports of stomach or esophageal cancer. Speaks Kiswahili and communicates with an retail area manager. REVIEW OF ORGAN SYSTEMS: CONSTITUTIONAL: At height of 4 feet 11.5 inches, her ideal body weight is 123 pounds. Highest weight is 225 pounds with body mass index 44.8. She comes in 223 pounds. Her body mass index is 44.3. She is 100 pounds overweight. HEENT: Denies any active troubles with vision or hearing. ENDOCRINE: Denies diabetes. No hypothyroidism. CARDIOVASCULAR: Denies reports of palpitations or heart attacks or chest pain. Denies hypertensive heart disease. RESPIRATORY: Has daytime somnolence. Has asthma. Has chronic obstructive pulmonary disease. GASTROINTESTINAL: Denies any bright red blood per rectum. No diarrhea. No constipation. Has gastroesophageal reflux disease. GENITOURINARY: Denies bladder urgency. No recent blood in urine MUSCULOSKELETAL: Has lower back pain and joint pain. Has osteoarthritis of the knees. NEURO: No headaches. No seizure disorders. PSYCH: Denies depression. No suicidal ideation. RHEUMATOLOGIC: No lupus. No rheumatoid arthritis. HEMATOLOGIC: Denies any abnormal bleeding or bruising. Past history of DVTs. SKIN: No rash. No skin cancer. PHYSICAL EXAM: VITAL SIGNS: Height 4 foot 11.5 inches, weight 222 pounds. BMI 44.3 Vital Signs Temp 98.1 F 10/12/20 16:33 Pulse 83 10/12/20 16:33 Resp 18 10/12/20 16:33 BP 121/70 10/12/20 16:33 Pulse Ox GENERAL: Well-developed in no acute distress. HEENT: No scleral icterus. Extraocular movements grossly intact. Hears conversational speech. No nasal drainage. NECK: Supple without lymphadenopathy. CHEST: Nonlabored respirations with equal bilateral excursions. CARDIOVASCULAR: Regular rate and regular rhythm. Distal 2+ pulses. ABDOMEN: Obese, soft, nontender, nondistended. MUSCULOSKELETAL: No clubbing, cyanosis. NEURO: No focal or lateralizing signs. Cranial nerves 2 through 12 grossly within normal limits. PSYCH: Appropriate affect. Alert and oriented to person, place and time. SKIN: Good skin turgor. Well perfused. ASSESSMENT: 1. Morbid obesity due to excess calories 2. Body mass index of 44.3, initial 3. Chronic obstructive pulmonary disease with asthma 4. Fibromyalgia 5. Obstructive sleep apnea 6. Osteoarthritis of the knees 7. Gastroesophageal reflux disease. 8. Osteoarthritis lower back 9. Osteoarthritis of the hip 10. DVT 11. Speak kosovan and communicates with electrical and instrument technician PLAN: 1. Surgical options including a band, gastric bypass, sleeve gastrectomy were described in detail. Alternatives such as gastric balloon including duodenal switch were described. She is looking into the sleeve gastrectomy 2. The [place] bariatric surgical collaborative data and outcomes calculator were described with surgical options. 3. Recommend a bariatric metabolic panel to evaluate for micro- including macronutrient deficiencies. 4. For history of daytime somnolence, recommend treatment for sleep apnea. 5. Dietary surveillance and counseling was reviewed. Increased protein intake over 65 grams daily advised. 6. Will need cardiac risk assessment. 7. Recommend medical risk assessment. 8. Psych assessment per insurance guidelines. 9. Recommend upper endoscopy. 10. Recommend 12-lead EKG. 11. Recommend esophagram 12. Recommend urine drug screen Thank you for this consultation. Past Medical History Past Medical History: Asthma, Fibromyalgia, Sleep Apnea/CPAP/BIPAP Additional Past Medical History / Comment(s): arthiritis. History of Any Multi-Drug Resistant Organisms: None Reported Past Surgical History: Cholecystectomy, Orthopedic Surgery, Tubal Ligation Additional Past Surgical History / Comment(s): bilateral knee Past Anesthesia/Blood Transfusion Reactions: No Reported Reaction Smoking Status: Never smoker Surgical - Exam Vital Signs Temp Pulse Resp BP 98.1 F 83 18 121/70 10/12/20 16:33 10/12/20 16:33 10/12/20 16:33 10/12/20 16:33 Bariatric Checklist Checklist: Plan: Checklist: EGD: 1. Hiatal hernia: 2. H. Pylori: HgbA1c: Vitamin D: Smoking: Never smoker Primary care physician referral: Dr. Thompson ([facility]) Psychiatry clearance: Cardiology clearance: Sleep study: Diet journal: VTE risk score: VTE risk level: Rehab needs at discharge:
== END ==
LOC: BARWHC3 15:09
PROVIDERS: ATTEND Surgery Plastic and Reconstructive Surgery
DX: E66.01 Morbid (severe) obesity due to excess calories (principal); J44.9 Chronic obstructive pulmonary disease, unspecified; M17.0 Bilateral primary osteoarthritis of knee; M47.9 Spondylosis, unspecified; M16.9 Osteoarthritis of hip, unspecified; G47.33 Obstructive sleep apnea (adult) (pediatric); M79.7 Fibromyalgia; K21.9 Gastro-esophageal reflux disease without esophagitis; I82.90 Acute embolism and thrombosis of unspecified vein; Z68.41 Body mass index [BMI] 40.0-44.9, adult; Z88.5 Allergy status to narcotic agent; Z91.048 Other nonmedicinal substance allergy status
CPT/HCPCS: 99203

== ENCOUNTER → 2020-10-13 | Outpatient (CLI) | payer OTHER ==
[2020-10-13 15:17] LABS: HCT 33.2 % (37.2-46.3); HGB 10.5 g/dL (12.0-15.0); MCH 28.3 pg (27.0-32.0); MCHC 31.6 g/dL (32.0-37.0); MCV 89.5 fL (80.0-97.0); Mean Platelet Volume 10.9 fL (9.5-12.2); Platelet Count 248 X 10*3/uL (140-440); RBC 3.71 X 10*6/uL (4.10-5.20); RDW 13.8 % (11.5-14.5); WBC 5.49 X 10*3/uL (4.50-10.00)
[2020-10-13 18:18] LABS: % Iron Saturation 12.14 (12.00-45.00); African American GFR (CKD) 103.2 (60.0-200.0); Albumin 3.8 g/dL (3.80-4.90); Albumin/Globulin Ratio 1.27 (1.60-3.17); Anion Gap 8.5 mmol/L (4.00-12.00); BUN/Creat Ratio 16.25 Ratio (12.00-20.00); Calcium 8.3 mg/dL (8.7-10.3); Carbon Dioxide 24.5 mmol/L (21.6-31.8); Chol/HDL Ratio 3.18; LDL Cholesterol,Calculated 83.8 mg/dL (0.0-131.0); Magnesium 1.9 mg/dL (1.5-2.4); Phosphorus 3.5 mg/dL (2.4-5.1); Potassium 4.1 mmol/L (3.5-5.5); Total Bilirubin 0.5 mg/dL (0.3-1.2); Total Protein 6.8 g/dL (6.2-8.2); VLDL Calculation 12.2 mg/dL (5.00-40.00)
[2020-10-13 18:26] LABS: Ferritin 35.8 ng/mL (10.0-291.0)
[2020-10-13 18:31] LABS: Folate, Serum 15.9 ng/mL
[2020-10-13 19:51] LABS: Hemoglobin A1C 4.9 % (4.0-6.0)
[2020-10-13 20:24] LABS: INR 0.93 (0.90-1.11); Partial Thromboplastin Time 27.1 sec (23.5-31.0); Prothrombin Time 10.2 sec (9.9-11.9)
[2020-10-14 12:59] LABS: Zinc, Serum 64 ug/dL (60-130)
[2020-10-15 11:03] LABS: Anabasine Urine <2.0 ng/mL (<2.0)
== END | disposition home or self-care (01) ==
LOC: LABWHC1 09:34
PROVIDERS: ATTEND Surgery Plastic and Reconstructive Surgery
DX: E66.01 Morbid (severe) obesity due to excess calories (principal); E89.1 Postprocedural hypoinsulinemia; D50.8 Other iron deficiency anemias; E55.9 Vitamin D deficiency, unspecified; K74.1 Hepatic sclerosis; N19 Unspecified kidney failure; K50.90 Crohn's disease, unspecified, without complications; K90.89 Other intestinal malabsorption; Z71.51 Drug abuse counseling and surveillance of drug abuser
CPT/HCPCS: 84255; 84134; 84425; 80061; 80053; 82607; 82728; 82525; 82746; 83540; 83550; 83735; 84100; 84443; 84590; 84630; 85027; 85610; 85730; 82306; 83970; 83036; 80307; 93005; 36415; G0480; G0482; 80323

== ENCOUNTER 2020-12-12 06:39 | Day surgery (SDC) | payer OTHER ==
[2020-12-08 09:50] VITALS: BMI 43.7
--- NOTE | 2020-12-12 05:35 | P.GSHP ---
History of Present Illness H&P Date: 12/12/20 CHIEF COMPLAINT: GERD HISTORY OF PRESENT ILLNESS: The patient is a 45-year-old female who presents reports gastroesophageal reflux disease. Upper endoscopy was offered for further evaluation and management. PAST MEDICAL HISTORY: Please see list. PAST SURGICAL HISTORY: Please see list. MEDICATIONS: Please see list. ALLERGIES: Please see list. SOCIAL HISTORY: No illicit drug use FAMILY HISTORY: No reports of Crohn disease or ulcerative colitis. REVIEW OF ORGAN SYSTEMS: CONSTITUTIONAL: No reports of fevers or chills. GI: Denies any blood in stools or constipation. PHYSICAL EXAM: VITAL SIGNS: Stable GENERAL: Well-developed and pleasant in no acute distress. HEENT: No scleral icterus. Extraocular movements grossly intact. Moist buccal mucosa. NECK: Supple without lymphadenopathy. CHEST: Unlabored respirations. Equal bilateral excursions. CARDIOVASCULAR: Regular rate and rhythm. Distal 2+ pulses. ABDOMEN: Soft, nondistended. MUSCULOSKELETAL: No clubbing, cyanosis, or edema. ASSESSMENT: 1. Gastroesophageal reflux disease PLAN: 1. Recommend proceeding with an upper endoscopy Past Medical History Past Medical History: Asthma, Fibromyalgia, Sleep Apnea/CPAP/BIPAP Additional Past Medical History / Comment(s): arthiritis. History of Any Multi-Drug Resistant Organisms: None Reported Past Surgical History: Cholecystectomy, Orthopedic Surgery, Tubal Ligation Additional Past Surgical History / Comment(s): bilateral knee Past Anesthesia/Blood Transfusion Reactions: No Reported Reaction Smoking Status: Never smoker - Past Family History Mother Family Medical History: No Reported History Medications and Allergies Home Medications Medication Instructions Recorded Confirmed Type Hydrocodone/Acetaminophen [[place] 1 tab PO Q6HR PRN #10 tab 10/29/19 12/08/20 Rx 5-325] Albuterol Inhaler [Ventolin Hfa 2 puff INHALATION RT-QID PRN #1 04/27/20 12/08/20 Rx Inhaler] inhaler Beclomethasone Dipropionate [Qvar 2 puff PO BID 10/12/20 12/08/20 History 80mcg Redihaler] Allergies Allergy/AdvReac Type Severity Reaction Status Date / Time adhesive Allergy Rash/Hives Verified 12/08/20 09:47 tramadol Allergy Nausea & Verified 12/08/20 09:47 Vomiting & Diarrhea
[~2020-12-12 06:39] MED LIST: LACTATED RINGERS 1,000 ML IV SCH; LIDOCAINE 1% (10MG/ML) FOR IV START INTRADERMA PRN
[2020-12-12 07:26] VITALS: TEMP 98.3
[2020-12-12] MEDS ORDERED: LIDOCAINE 1% INJ 10MG/ML (20 ML MDV) ONE (07:29)
[2020-12-12] MEDS ORDERED: PROPOFOL 10 MG/ML 20 ML VIAL IV ONE (07:29)
--- NOTE | 2020-12-12 07:42 | P.PCN ---
Date of Procedure: 12/12/20 Description of Procedure: PREOPERATIVE DIAGNOSIS: Gastroesophageal reflux disease. Morbid obesity. POSTOPERATIVE DIAGNOSIS: Morbid obesity. Gastritis. Gastroesophageal reflux disease. Gastric polyps OPERATION: Esophagogastroduodenoscopy with biopsies along antrum. SURGEON: Hilda Tineo MD ANESTHESIA: MAC. INDICATIONS: The patient is a 45-year-old female who presents with a history of reflux disease. Benefits and risks of the procedure were described. Informed consent was obtained. DESCRIPTION: The patient was brought into the endoscopy suite and laid in the left lateral decubitus position. An Olympus gastroscope was passed along the posterior oropharynx down to the distal esophagus where the squamocolumnar junction was encountered at 36 cm from the incisors. The stomach was entered and no bile reflux was found. Additional findings are listed below. Biopsies with cold forceps were obtained of the antrum. The first through third portion of the duodenum was examined and unremarkable. Retroflexion of the scope confirmed Hill grade 2 lower esophageal valve. The squamocolumnar junction demonstrated LA grade A erosive esophagitis. The stomach was desufflated. The patient tolerated the procedure well. FINDINGS: Squamocolumnar junction 36 cm from the incisors. Diaphragmatic hiatus at 36 cm. Hill grade 2 lower esophageal valve. LA grade A erosive esophagitis. No active duodenitis. Chronic gastritis without bleeding Hyperplastic gastric polyps few along gastric cardia RECOMMENDATIONS: Upper endoscopy as needed. Plan - Discharge Summary Discharge Rx Participant: No New Discharge Prescriptions: Continue Hydrocodone/Acetaminophen [[place] 5-325] 1 tab PO Q6HR PRN #10 tab PRN Reason: Pain Albuterol Inhaler [Ventolin Hfa Inhaler] 2 puff INHALATION RT-QID PRN #1 inhaler PRN Reason: Shortness Of Breath Beclomethasone Dipropionate [Qvar 80mcg Redihaler] 2 puff PO BID Discharge Medication List Hydrocodone/Acetaminophen [[place] 5-325] 1 tab PO Q6HR PRN #10 tab 10/29/19 [Rx] Albuterol Inhaler [Ventolin Hfa Inhaler] 2 puff INHALATION RT-QID PRN #1 inhaler 04/27/20 [Rx] Beclomethasone Dipropionate [Qvar 80mcg Redihaler] 2 puff PO BID 10/12/20 [History] Follow up Appointment(s)/Referral(s): [facility] [NON-STAFF] - 12/28/20 Patient Instructions/Handouts: Gastritis (DC), Diet for Stomach Ulcers and Gastritis (ED) Discharge Disposition: HOME SELF-CARE
[2020-12-12 07:43] VITALS: RESP 16
[2020-12-12 08:00] VITALS: BP 97/63; PULSE 71
== END 2020-12-12 08:50 | disposition home or self-care (01) ==
LOC: ORWHC2ENDO 06:39
PROVIDERS: ATTEND Surgery Plastic and Reconstructive Surgery
DX: K29.50 Unspecified chronic gastritis without bleeding (principal); K21.9 Gastro-esophageal reflux disease without esophagitis; E66.01 Morbid (severe) obesity due to excess calories; K31.7 Polyp of stomach and duodenum; J45.909 Unspecified asthma, uncomplicated; G47.33 Obstructive sleep apnea (adult) (pediatric); M79.7 Fibromyalgia; F32.9 Major depressive disorder, single episode, unspecified
CPT/HCPCS: 43239; 81025; 88305; J2001; J2704

== ENCOUNTER 2021-02-09 19:19 | Emergency (ER) | payer OTHER ==
--- NOTE | 2021-02-09 22:14 | ED ---
URI HPI - General Chief Complaint: Upper Respiratory Infection Stated Complaint: Cough Time Seen by Provider: 02/09/21 22:06 Source: patient Mode of arrival: ambulatory - History of Present Illness MD Complaint: fever, cough, rhinorrhea, nasal congestion Onset/Timin -: days(s) Consistency: constant Improves With: nothing Worsens With: nothing Context: sick contacts Associated Symptoms: fever, chills, myalgias, headache, rhinorrhea, cough Treatments Prior to Arrival: none - Related Data Home Medications Medication Instructions Recorded Confirmed Beclomethasone Dipropionate [Qvar 2 puff PO BID 10/12/20 01/18/21 80mcg Redihaler] Famotidine [Pepcid] 10 mg PO HS 12/14/20 01/18/21 Previous Rx's Medication Instructions Recorded Hydrocodone/Acetaminophen [[place] 1 tab PO Q6HR PRN #10 tab 10/29/19 5-325] Albuterol Inhaler [Ventolin Hfa 2 puff INHALATION RT-QID PRN #1 04/27/20 Inhaler] inhaler Omeprazole [PriLOSEC] 40 mg PO DAILY #14 cap 12/14/20 Azithromycin [Zithromax Z-pack (6 250 mg PO DIRECTED #6 tab 02/09/21 tabs)] Promethazine 6.25MG/5Ml [Phenergan 5 ml PO Q4HR PRN #120 ml 02/09/21 Syrup] Allergies Allergy/AdvReac Type Severity Reaction Status Date / Time adhesive Allergy Rash/Hives Verified 02/09/21 21:00 tramadol Allergy Nausea & Verified 02/09/21 21:00 Vomiting & Diarrhea Review of Systems ROS Statement: Those systems with pertinent positive or pertinent negative responses have been documented in the HPI. ROS Other: All systems not noted in ROS Statement are negative. Constitutional: Reports: fever, chills. Denies: weakness Eyes: Denies: vision change Respiratory: Reports: cough. Denies: dyspnea, wheezes Cardiovascular: Denies: chest pain, orthopnea, syncope Gastrointestinal: Reports: nausea. Denies: abdominal pain, vomiting, diarrhea Genitourinary: Denies: dysuria, hematuria Musculoskeletal: Denies: back pain Skin: Denies: rash Neurological: Reports: headache. Denies: weakness, numbness Past Medical History Past Medical History: No Reported History, Asthma, Fibromyalgia, Sleep Apnea/CPAP/BIPAP Additional Past Medical History / Comment(s): arthiritis. History of Any Multi-Drug Resistant Organisms: None Reported Past Surgical History: Cholecystectomy, Orthopedic Surgery, Tubal Ligation Additional Past Surgical History / Comment(s): bilateral knee Past Anesthesia/Blood Transfusion Reactions: No Reported Reaction Past Psychological History: Depression Smoking Status: Never smoker Past Alcohol Use History: None Reported Past Drug Use History: None Reported - Past Family History Mother Family Medical History: No Reported History General Exam General appearance: alert, in no apparent distress Head exam: Present: atraumatic, normocephalic Eye exam: Present: normal appearance. Absent: scleral icterus, conjunctival injection ENT exam: Present: normal oropharynx Neck exam: Present: normal inspection, full ROM. Absent: meningismus Respiratory exam: Present: normal lung sounds bilaterally. Absent: respiratory distress, wheezes, rales, rhonchi, stridor Cardiovascular Exam: Present: regular rate, normal rhythm, normal heart sounds. Absent: systolic murmur, diastolic murmur, rubs, gallop GI/Abdominal exam: Present: soft. Absent: distended, tenderness, guarding, rebound Neurological exam: Present: alert Skin exam: Present: warm, dry, intact, normal color. Absent: rash Course Vital Signs 02/09/21 20:57 Temperature 97.8 F Pulse Rate 89 Respiratory 21 Rate Blood Pressure 152/93 O2 Sat by Pulse 98 Oximetry Medical Decision Making - Lab Data Lab Results 02/09/21 Range/Units 22:07 Coronavirus (PCR) Not Detected (Not Detectd) Disposition Clinical Impression: Acute upper respiratory infection Disposition: HOME SELF-CARE Condition: Good Instructions (If sedation given, give patient instructions): Upper Respiratory Infection (ED) Prescriptions: Promethazine 6.25MG/5Ml [Phenergan Syrup] 5 ml PO Q4HR PRN #120 ml PRN Reason: Cough Azithromycin [Zithromax Z-pack (6 tabs)] 250 mg PO DIRECTED #6 tab Is patient prescribed a controlled substance at d/c from ED?: No Referrals: Rebecca Figueroa FNPBC [Family Provider] - 1-2 days
[2021-02-09 23:46] VITALS: BP 125/79; PULSE 75; RESP 20; TEMP 98.2
== END 2021-02-09 23:46 | disposition home or self-care (01) ==
LOC: EC 19:19
DX: J06.9 Acute upper respiratory infection, unspecified (principal); Z20.822 Contact with and (suspected) exposure to COVID-19; Z88.1 Allergy status to other antibiotic agents; J45.909 Unspecified asthma, uncomplicated; Z90.49 Acquired absence of other specified parts of digestive tract; Z98.51 Tubal ligation status; F32.9 Major depressive disorder, single episode, unspecified
CPT/HCPCS: 87635; 99284

== ENCOUNTER → 2021-05-24 | Outpatient (CLI) | payer OTHER ==
--- NOTE | 2021-05-24 13:48 | P.BASOAP ---
Subjective Progress Note Date: 05/24/21 DATE OF SERVICE: 05/24/2021 CHIEF COMPLAINT: Morbid obesity HISTORY OF PRESENT ILLNESS: Venessa Romo is a 45-year-old female who comes with lifelong morbid obesity. She is looking into the gastric sleeve gastrectomy. She is underdoing medical supervised weight loss at least through August 2021. Her weight is stable. She has a food diary journal. At height of 4 feet 11.5 inches, her ideal body weight is 123 pounds. Highest weight is 226 pounds with body mass index 44.9. She comes in 220 pounds u nchanged in 1 month. Her body mass index is 43.7. She is 97 pounds overweight. PHYSICAL EXAM: VITAL SIGNS: Height 4 foot 11.5 inches, weight 220 pounds. BMI 43.7 Vital Signs Temp 97.7 F 05/24/21 13:52 Pulse 85 05/24/21 13:52 Resp BP 130/84 05/24/21 13:52 Pulse Ox GENERAL: Well-developed in no acute distress. HEENT: No scleral icterus. Extraocular movements grossly intact. Hears conversational speech. No nasal drainage. NECK: Supple without lymphadenopathy. CHEST: Nonlabored respirations with equal bilateral excursions. CARDIOVASCULAR: Regular rate and regular rhythm. Distal 2+ pulses. ABDOMEN: Obese, soft, nontender, nondistended. MUSCULOSKELETAL: No clubbing, cyanosis. NEURO: No focal or lateralizing signs. Cranial nerves 2 through 12 grossly within normal limits. PSYCH: Appropriate affect. Alert and oriented to person, place and time. SKIN: Good skin turgor. Well perfused. ASSESSMENT: 1. Morbid obesity due to excess calories 2. Body mass index up to 44.9 to 43.7 3. Chronic obstructive pulmonary disease with asthma 4. Fibromyalgia 5. Obstructive sleep apnea 6. Osteoarthritis of the knees 7. Gastroesophageal reflux disease. 8. Osteoarthritis lower back 9. Osteoarthritis of the hip 10. DVT 11. Speak indonesian and communicates with team member 12. Anemia 13. Iron deficiency anemia 14. Calcium deficiency 15. Vitamin A deficiency 16. Hyperparathyroidism 17. Gastritis PLAN: 1. Continue medical supervised weight loss. 2. Continue food diary journal. Assessment/Plan Plan: Date: Initial Weight: 101.151 kg Initial BMI: Current Weight: Current BMI: Type of Surgery: Total Volume in Band: Previous Volume: Volume Removed: Volume Added: Band Size:
[2021-05-24 13:56] VITALS: BP 130/84; PULSE 85; TEMP 97.7; BMI 43.7
== END ==
LOC: BARWHC3 13:01
PROVIDERS: ATTEND Surgery Plastic and Reconstructive Surgery
DX: E66.01 Morbid (severe) obesity due to excess calories (principal); J44.9 Chronic obstructive pulmonary disease, unspecified; M79.7 Fibromyalgia; G47.33 Obstructive sleep apnea (adult) (pediatric); M17.0 Bilateral primary osteoarthritis of knee; K21.9 Gastro-esophageal reflux disease without esophagitis; M47.816 Spondylosis without myelopathy or radiculopathy, lumbar region; M16.10 Unilateral primary osteoarthritis, unspecified hip; I82.409 Acute embolism and thrombosis of unspecified deep veins of unspecified lower extremity; D50.9 Iron deficiency anemia, unspecified; E58 Dietary calcium deficiency; E50.9 Vitamin A deficiency, unspecified; E21.3 Hyperparathyroidism, unspecified; K29.70 Gastritis, unspecified, without bleeding; Z91.048 Other nonmedicinal substance allergy status; Z88.6 Allergy status to analgesic agent
CPT/HCPCS: 99211

== ENCOUNTER → 2021-06-14 | Outpatient (CLI) | payer OTHER ==
[2021-06-14 13:02] VITALS: BP 140/81; PULSE 75; RESP 16; TEMP 98.3; BMI 43.4
--- NOTE | 2021-06-14 13:59 | P.BASOAP ---
Subjective Progress Note Date: 06/14/21 DATE OF SERVICE: 06/14/2021 CHIEF COMPLAINT: Morbid obesity HISTORY OF PRESENT ILLNESS: Venessa Romo is a 45-year-old female who comes with lifelong morbid obesity. She is looking into the gastric sleeve gastrectomy. She has a food diary journal. She continues to lose weight. Seperately, she has heavy menses with prior low iron. She presents on follow-up. At height of 4 feet 11.5 inches, her ideal body weight is 123 pounds. Highest weight is 226 pounds with body mass index 45.0. She comes in 218 pounds from 219 pounds in 1 month. She has lost 1 pound in 1 month. Her body mass index is 43.5. She is 97 pounds overweight. PHYSICAL EXAM: VITAL SIGNS: Height 4 foot 11.5 inches, weight 219 pounds. BMI 43.5 Vital Signs Temp 98.3 F 06/14/21 12:59 Pulse 75 06/14/21 12:59 Resp 16 06/14/21 12:59 BP 140/81 06/14/21 12:59 Pulse Ox GENERAL: Well-developed in no acute distress. HEENT: No scleral icterus. Extraocular movements grossly intact. Hears conversational speech. No nasal drainage. NECK: Supple without lymphadenopathy. CHEST: Nonlabored respirations with equal bilateral excursions. CARDIOVASCULAR: Regular rate and regular rhythm. Distal 2+ pulses. ABDOMEN: Obese, soft, nontender, nondistended. MUSCULOSKELETAL: No clubbing, cyanosis. NEURO: No focal or lateralizing signs. Cranial nerves 2 through 12 grossly within normal limits. PSYCH: Appropriate affect. Alert and oriented to person, place and time. SKIN: Good skin turgor. Well perfused. ASSESSMENT: 1. Morbid obesity due to excess calories 2. Body mass index up to 44.9 to 43.5 3. Chronic obstructive pulmonary disease with asthma 4. Fibromyalgia 5. Obstructive sleep apnea 6. Osteoarthritis of the knees 7. Gastroesophageal reflux disease. 8. Osteoarthritis lower back 9. Osteoarthritis of the hip 10. DVT 11. Speak surinamese and communicates with public service representative 12. Anemia 13. Iron deficiency anemia 14. Calcium deficiency 15. Vitamin A deficiency 16. Hyperparathyroidism 17. Gastritis PLAN: 1. Her food diary journal was reviewed and needs to be categorized by day. She has only a list of foods she eats in the month. 2. Recommend continue medical supervised weight loss into August for corrected diary journal. 3. Recommend re-check iron due to heavy menses. 4. May need another iron infusion. Objective - Vital Signs Vital signs: Vital Signs Temp 98.3 F 06/14/21 12:59 Pulse 75 06/14/21 12:59 Resp 16 06/14/21 12:59 BP 140/81 06/14/21 12:59 Pulse Ox Intake & Output 06/13/21 06/14/21 06/14/21 18:59 06:59 18:59 Weight 99.337 kg Assessment/Plan Plan: Date: 06/14/21 Initial Weight: 101.151 kg Initial BMI: 44.2 Current Weight: 99.337 kg Current BMI: 43.4 Type of Surgery: Total Volume in Band: Previous Volume: Volume Removed: Volume Added: Band Size:
[2021-06-14 19:43] LABS: % Iron Saturation 15.02 (12.00-45.00)
== END ==
LOC: BARWHC3 12:47
PROVIDERS: ATTEND Surgery Plastic and Reconstructive Surgery
DX: E66.01 Morbid (severe) obesity due to excess calories (principal); D50.8 Other iron deficiency anemias; K91.2 Postsurgical malabsorption, not elsewhere classified; Z68.41 Body mass index [BMI] 40.0-44.9, adult; J44.9 Chronic obstructive pulmonary disease, unspecified; M79.7 Fibromyalgia; G47.33 Obstructive sleep apnea (adult) (pediatric); M17.0 Bilateral primary osteoarthritis of knee; K21.9 Gastro-esophageal reflux disease without esophagitis; M47.9 Spondylosis, unspecified; M16.10 Unilateral primary osteoarthritis, unspecified hip; Z86.718 Personal history of other venous thrombosis and embolism; D50.9 Iron deficiency anemia, unspecified; E58 Dietary calcium deficiency; E21.3 Hyperparathyroidism, unspecified; K29.70 Gastritis, unspecified, without bleeding; E50.9 Vitamin A deficiency, unspecified; Z91.048 Other nonmedicinal substance allergy status; Z88.5 Allergy status to narcotic agent
CPT/HCPCS: 82728; 83540; 83550; G0463; 99211

== ENCOUNTER → 2021-07-19 | Outpatient (CLI) | payer OTHER ==
[2021-07-19 13:36] VITALS: BP 133/77; PULSE 81; RESP 16; TEMP 98.3; BMI 43.4
--- NOTE | 2021-07-19 13:42 | P.BASOAP ---
Subjective Progress Note Date: 07/19/21 DATE OF SERVICE: 07/19/2021 CHIEF COMPLAINT: Morbid obesity HISTORY OF PRESENT ILLNESS: Venessa Romo is a 45-year-old female who comes with lifelong morbid obesity. She is looking into the gastric sleeve gastrectomy. Her weight is stable. She is using a food diary journal. At height of 4 feet 11.5 inches, her ideal body weight is 123 pounds. Highest weight is 226 pounds with body mass index 45.0. She comes in 219 pounds, unchanged from 1 month ago. Her body mass index is 43.5. She is 96 pounds overweight. PHYSICAL EXAM: VITAL SIGNS: Height 4 foot 11.5 inches, weight 219 pounds. BMI 43.5 Vital Signs Temp 98.3 F 07/19/21 13:33 Pulse 81 07/19/21 13:33 Resp 16 07/19/21 13:33 BP 133/77 07/19/21 13:33 Pulse Ox GENERAL: Well-developed in no acute distress. HEENT: No scleral icterus. Extraocular movements grossly intact. Hears conversational speech. No nasal drainage. NECK: Supple without lymphadenopathy. CHEST: Nonlabored respirations with equal bilateral excursions. CARDIOVASCULAR: Regular rate and regular rhythm. Distal 2+ pulses. ABDOMEN: Obese, soft, nontender, nondistended. MUSCULOSKELETAL: No clubbing, cyanosis. NEURO: No focal or lateralizing signs. Cranial nerves 2 through 12 grossly within normal limits. PSYCH: Appropriate affect. Alert and oriented to person, place and time. SKIN: Good skin turgor. Well perfused. LABS: Reviewed. Iron is low. ASSESSMENT: 1. Morbid obesity due to excess calories 2. Body mass index up to 44.9 to 43.5 3. Chronic obstructive pulmonary disease with asthma 4. Fibromyalgia 5. Obstructive sleep apnea 6. Osteoarthritis of the knees 7. Gastroesophageal reflux disease. 8. Osteoarthritis lower back 9. Osteoarthritis of the hip 10. DVT 11. Speak yemeni and communicates with restaurant assistant 12. Anemia 13. Iron deficiency anemia 14. Calcium deficiency 15. Vitamin A deficiency 16. Hyperparathyroidism 17. Gastritis PLAN: 1. Recommend dietary class. 2. Continue dietary journal. 3. Recommend repeat all blood work. 4. Follow up in 1 month Objective - Vital Signs Vital signs: Vital Signs Temp 98.3 F 07/19/21 13:33 Pulse 81 03/23/22 13:33 Resp 16 07/19/21 13:33 BP 133/77 07/19/21 13:33 Pulse Ox Intake & Output 07/18/21 07/19/21 07/19/21 18:59 06:59 18:59 Weight 99.337 kg - Labs CBC & Chem 7: 07/19/21 14:09 07/19/21 14:09 Assessment/Plan Plan: Date: 07/19/21 Initial Weight: 101.151 kg Initial BMI: 44.2 Current Weight: 99.337 kg Current BMI: 43.4 Type of Surgery: Total Volume in Band: Previous Volume: Volume Removed: Volume Added: Band Size:
[2021-07-19 18:08] LABS: INR 0.9 (<1.2); Prothrombin Time 10.1 sec (9.0-12.0)
[2021-07-19 18:09] LABS: Partial Thromboplastin Time 25.9 sec (22.0-30.0)
[2021-07-19 18:30] LABS: HCT 38.4 % (37.2-46.3); HGB 12.1 g/dL (12.0-15.0); MCH 29.3 pg (27.0-32.0); MCHC 31.5 g/dL (32.0-37.0); Mean Platelet Volume 10.6 fL (9.5-12.2); NRBC Per 100 WBC 0 /100 WBCS (0.0-0.0); Platelet Count 289 X 10*3/uL (140-440); RBC 4.13 X 10*6/uL (4.10-5.20); RDW 13.4 % (11.5-14.5); WBC 6.44 X 10*3/uL (4.50-10.00)
[2021-07-19 18:55] LABS: ALT 29 U/L (8-44); AST 23 U/L (13-35); African American GFR (CKD) 120.7 (60.0-200.0); Albumin 4.2 g/dL (3.8-4.9); Albumin/Globulin Ratio 1.28 (1.60-3.17); Alkaline Phosphatase 90 U/L (41-126); Blood Urea Nitrogen 11.6 mg/dL (9.0-27.0); Calcium 9.5 mg/dL (8.7-10.3); Carbon Dioxide 22.7 mmol/L (20.0-27.5); Chloride 101 mmol/L (96-109); Globulin 3.3 g/dL (1.6-3.3); Glucose 90 mg/dL (70-110); Non-African American GFR(CKD) 104.1 (60.0-200.0); Potassium 4.1 mmol/L (3.5-5.5); Sodium 139 mmol/L (135-145); Total Protein 7.5 g/dL (6.2-8.2)
[2021-07-19 18:56] LABS: % Iron Saturation 13.95 (12.00-45.00); Iron 41 ug/dL (50-170); Magnesium 2.2 mg/dL (1.5-2.4); Phosphorus 2.8 mg/dL (2.4-5.1); Total Iron Binding Capacity 295 ug/dL (228-460)
[2021-07-19 19:06] LABS: Chol/HDL Ratio 2.97 Ratio; LDL Cholesterol,Calculated 81.3 mg/dL (0.0-131.0); Prealbumin 15.9 mg/dL (18.0-42.0)
[2021-07-20 13:25] LABS: Zinc, Serum 64 ug/dL (60-130)
[2021-07-21 06:17] LABS: Vitamin A 32 ug/dL (38-106)
[2021-07-22 14:05] LABS: Selenium 127 mcg/L (63-160)
[2021-07-24 07:13] LABS: Vit B1(Thiamine) 59 ug/L (38-122)
== END ==
LOC: BARWHC3 12:59
PROVIDERS: ATTEND Surgery Plastic and Reconstructive Surgery
DX: E66.01 Morbid (severe) obesity due to excess calories (principal); Z68.41 Body mass index [BMI] 40.0-44.9, adult; J44.9 Chronic obstructive pulmonary disease, unspecified; M79.7 Fibromyalgia; G47.33 Obstructive sleep apnea (adult) (pediatric); K21.9 Gastro-esophageal reflux disease without esophagitis; M16.10 Unilateral primary osteoarthritis, unspecified hip; Z86.718 Personal history of other venous thrombosis and embolism; D50.9 Iron deficiency anemia, unspecified; E50.9 Vitamin A deficiency, unspecified; E21.3 Hyperparathyroidism, unspecified; K29.70 Gastritis, unspecified, without bleeding; Z91.048 Other nonmedicinal substance allergy status; Z88.5 Allergy status to narcotic agent
CPT/HCPCS: 84255; 84134; 84425; 80061; 80053; 82607; 82728; 82525; 82746; 83540; 83550; 83735; 84100; 84443; 84590; 84630; 85027; 85610; 85730; 82306; 83970; 83036; G0463; 99211

== ENCOUNTER → 2021-07-24 | Outpatient (CLI) | payer OTHER ==
[2021-07-24 11:14] VITALS: BMI 45.4
== END ==
LOC: BARWHC3 08:36
PROVIDERS: ATTEND Surgery Plastic and Reconstructive Surgery
DX: E66.01 Morbid (severe) obesity due to excess calories (principal); Z71.3 Dietary counseling and surveillance; Z68.42 Body mass index [BMI] 45.0-49.9, adult; Z91.048 Other nonmedicinal substance allergy status; Z88.5 Allergy status to narcotic agent
CPT/HCPCS: 97804

== ENCOUNTER → 2021-08-23 | Outpatient (CLI) | payer OTHER ==
--- NOTE | 2021-08-23 09:40 | P.BASOAP ---
Subjective Progress Note Date: 08/23/21 DATE OF SERVICE: 08/23/2021 CHIEF COMPLAINT: Morbid obesity HISTORY OF PRESENT ILLNESS: Venessa Romo is a 45-year-old female who comes with lifelong morbid obesity. She is looking into the gastric sleeve gastrectomy. Clinically she is doing well. She attended dietary counseling with the dietitian 1 month ago. She had iron infusion due to severe iron deficiency anemia. She has gained weight due to her menstrual cycle and water retention. At height of 4 feet 11.5 inches, her ideal body weight is 123 pounds. Highest weight is 226 pounds with body mass index 45.0. She comes in 226 pounds from 219 pounds, 1 month ago. She has gained 7 pounds in 1 month. Her body mass index is 44.9. She is 103 pounds overweight. PHYSICAL EXAM: VITAL SIGNS: Height 4 foot 11.5 inches, weight 226 pounds. BMI 43.5 Vital Signs Temp 98 F 08/23/21 09:56 Pulse 81 08/23/21 09:56 Resp BP 128/80 08/23/21 09:56 Pulse Ox Intake & Output 08/23/21 08/23/21 08/24/21 06:59 18:59 06:59 Weight 102.512 kg GENERAL: Well-developed in no acute distress. HEENT: No scleral icterus. Extraocular movements grossly intact. Hears conversational speech. No nasal drainage. NECK: Supple without lymphadenopathy. CHEST: Nonlabored respirations with equal bilateral excursions. CARDIOVASCULAR: Regular rate and regular rhythm. Distal 2+ pulses. ABDOMEN: Obese, soft, nontender, nondistended. MUSCULOSKELETAL: No clubbing, cyanosis. NEURO: No focal or lateralizing signs. Cranial nerves 2 through 12 grossly within normal limits. PSYCH: Appropriate affect. Alert and oriented to person, place and time. SKIN: Good skin turgor. Well perfused. LABS: Reviewed. Hgb 12.1. Iron is low. Pre-albumin is low. Vitamin A is low. Vitamin D is low. ASSESSMENT: 1. Morbid obesity due to excess calories 2. Body mass index up to 44.9 to 43.5 3. Chronic obstructive pulmonary disease with asthma 4. Fibromyalgia 5. Obstructive sleep apnea 6. Osteoarthritis of the knees 7. Gastroesophageal reflux disease. 8. Osteoarthritis lower back 9. Osteoarthritis of the hip 10. DVT 11. Speak polish and communicates with pharmacist aide 12. Anemia 13. Iron deficiency anemia 14. Calcium deficiency 15. Vitamin A deficiency 16. Hyperparathyroidism 17. Gastritis 18. Vitamin D deficiency PLAN: 1. Recommend two-week high protein diet low carb diet with follow-up in 1 month. 2. Continue with medical supervised weight loss per insurance guidelines. 3. Patient's looking into sleeve gastrectomy at this time. 4. Recommend increase protein intake. Assessment/Plan Plan: Date: Initial Weight: 101.151 kg Initial BMI: Current Weight: Current BMI: Type of Surgery: Total Volume in Band: Previous Volume: Volume Removed: Volume Added: Band Size:
[2021-08-23 09:58] VITALS: BP 128/80; PULSE 81; TEMP 98; BMI 44.9
== END ==
LOC: BARWHC3 09:20
PROVIDERS: ATTEND Surgery Plastic and Reconstructive Surgery
DX: E66.01 Morbid (severe) obesity due to excess calories (principal); Z68.41 Body mass index [BMI] 40.0-44.9, adult; J44.9 Chronic obstructive pulmonary disease, unspecified; M79.7 Fibromyalgia; G47.33 Obstructive sleep apnea (adult) (pediatric); M17.0 Bilateral primary osteoarthritis of knee; K21.9 Gastro-esophageal reflux disease without esophagitis; M47.9 Spondylosis, unspecified; M16.10 Unilateral primary osteoarthritis, unspecified hip; Z86.718 Personal history of other venous thrombosis and embolism; D50.9 Iron deficiency anemia, unspecified; E50.9 Vitamin A deficiency, unspecified; E21.3 Hyperparathyroidism, unspecified; K29.70 Gastritis, unspecified, without bleeding; E55.9 Vitamin D deficiency, unspecified; E58 Dietary calcium deficiency; Z88.5 Allergy status to narcotic agent; Z91.048 Other nonmedicinal substance allergy status
CPT/HCPCS: 99211

== ENCOUNTER → 2021-11-01 | Outpatient (CLI) | payer OTHER ==
[2021-11-01 22:56] LABS: Basophils # (A) 0.03 X 10*3/uL (0.00-0.10); Basophils % (A) 0.4 %; Eosinophils # (A) 0.04 X 10*3/uL (0.04-0.35); Eosinophils % (A) 0.5 %; HCT 39.8 % (37.2-46.3); HGB 12.5 g/dL (12.0-15.0); Immature Grans, Automated 0.8 %; Lymphocytes % (A) 25.5 %; MCH 29.3 pg (27.0-32.0); MCHC 31.4 g/dL (32.0-37.0); MCV 93.4 fL (80.0-97.0); Mean Platelet Volume 10.8 fL (9.5-12.2); Monocytes # (A) 0.41 X 10*3/uL (0.20-1.00); NRBC Per 100 WBC 0 /100 WBCS (0.0-0.0); Neutrophils # (A) 5.59 X 10*3/uL (1.80-7.70); Neutrophils % (A) 67.8 %; Platelet Count 270 X 10*3/uL (140-440); RBC 4.26 X 10*6/uL (4.10-5.20); RDW 13.2 % (11.5-14.5); WBC 8.24 X 10*3/uL (4.50-10.00)
[2021-11-01 23:20] LABS: African American GFR (CKD) 121.2 (60.0-200.0); Albumin 4.4 g/dL (3.8-4.9); Albumin/Globulin Ratio 1.38 (1.60-3.17); Anion Gap 11.2 mmol/L (10.00-18.00); BUN/Creat Ratio 16.89 Ratio (12.00-20.00); Blood Urea Nitrogen 11.6 mg/dL (9.0-27.0); Carbon Dioxide 23.2 mmol/L (20.0-27.5); Globulin 3.2 g/dL (1.6-3.3); Non-African American GFR(CKD) 104.6 (60.0-200.0); Potassium 4.3 mmol/L (3.5-5.5); Total Bilirubin 0.5 mg/dL (0.30-1.20); Total Protein 7.5 g/dL (6.2-8.2)
== END | disposition home or self-care (01) ==
LOC: LABPAT 15:33
PROVIDERS: ATTEND Surgery Plastic and Reconstructive Surgery
DX: Z01.812 Encounter for preprocedural laboratory examination (principal)
CPT/HCPCS: 80053; 85025

== ENCOUNTER 2021-11-13 12:00 | Inpatient (IN) | payer OTHER ==
--- NOTE | 2021-11-13 09:24 | P.GSHP ---
History of Present Illness H&P Date: 11/13/21 CHIEF COMPLAINT: Morbid obesity HISTORY OF PRESENT ILLNESS: Venessa Romo is a 46-year-old female who comes with lifelong morbid obesity. She is looking into the gastric sleeve gastrectomy. As a result of her obesity, she has developed obstructive sleep apnea and osteoarthritis. She has completed medical supervised weight loss including the bariatric clearances. At height of 4 feet 11.5 inches, her ideal body weight is 123 pounds. Highest weight is 225 pounds with body mass index 44.8. She comes in 223 pounds, unchanged from 2 months ago. Her body mass index is 44.3. She is 100 pounds overweight. PAST MEDICAL HISTORY: 1. Morbid obesity due to excess calories 2. Body mass index of 44.3, initial 3. Chronic obstructive pulmonary disease with asthma 4. Fibromyalgia 5. Obstructive sleep apnea 6. Osteoarthritis of the knees. 7. Gastroesophageal reflux disease. 8. Osteoarthritis lower back 9. Osteoarthritis of the hip 10. DVT PAST SURGICAL HISTORY: 1. Cholecystectomy 2. Tubal ligation 3. Bilateral knee replacement HOME MEDICATIONS: ALLERGIES: SOCIAL HISTORY: Denies past tobacco use. FAMILY HISTORY: No family history of ulcerative colitis disease or Crohn's disease. Family history of morbid obesity. No lupus in the family. No reports of stomach or esophageal cancer. Speaks Belarusian and communicates with an hourly sign language interpreter. REVIEW OF ORGAN SYSTEMS: CONSTITUTIONAL: At height of 4 feet 11.5 inches, her ideal body weight is 123 pounds. Highest weight is 225 pounds with body mass index 44.8. She comes in 223 pounds. Her body mass index is 44.3. She is 100 pounds overweight. HEENT: Denies any active troubles with vision or hearing. ENDOCRINE: Denies diabetes. No hypothyroidism. CARDIOVASCULAR: Denies reports of palpitations or heart attacks or chest pain. Denies hypertensive heart disease. RESPIRATORY: Has daytime somnolence. Has asthma. Has chronic obstructive pulmonary disease. GASTROINTESTINAL: Denies any bright red blood per rectum. No diarrhea. No constipation. Has gastroesophageal reflux disease. GENITOURINARY: Denies bladder urgency. No recent blood in urine MUSCULOSKELETAL: Has lower back pain and joint pain. Has osteoarthritis of the knees. NEURO: No headaches. No seizure disorders. PSYCH: Denies depression. No suicidal ideation. RHEUMATOLOGIC: No lupus. No rheumatoid arthritis. HEMATOLOGIC: Denies any abnormal bleeding or bruising. Past history of DVTs. SKIN: No rash. No skin cancer. PHYSICAL EXAM: VITAL SIGNS: Height 4 foot 11.5 inches, weight 223 pounds. BMI 44.3 GENERAL: Well-developed in no acute distress. HEENT: No scleral icterus. Extraocular movements grossly intact. Hears conve rsational speech. No nasal drainage. NECK: Supple without lymphadenopathy. CHEST: Nonlabored respirations with equal bilateral excursions. CARDIOVASCULAR: Regular rate and regular rhythm. Distal 2+ pulses. ABDOMEN: Obese, soft, nontender, nondistended. MUSCULOSKELETAL: No clubbing, cyanosis. NEURO: No focal or lateralizing signs. Cranial nerves 2 through 12 grossly within normal limits. PSYCH: Appropriate affect. Alert and oriented to person, place and time. SKIN: Good skin turgor. Well perfused. ASSESSMENT: 1. Morbid obesity due to excess calories 2. Body mass index of 44.3, initial 3. Chronic obstructive pulmonary disease with asthma 4. Fibromyalgia 5. Obstructive sleep apnea 6. Osteoarthritis of the knees 7. Gastroesophageal reflux disease. 8. Osteoarthritis lower back 9. Osteoarthritis of the hip 10. DVT 11. Speak italian and communicates with lead game designer 12. Anemia 13. Iron deficiency anemia 14. Calcium deficiency 15. Vitamin A deficiency 16. Hyperparathyroidism 17. Gastritis PLAN: 1. Bariatric options between a sleeve, band and a Nelly-en-Y gastric bypass were reviewed in detail. The patient elected for a sleeve gastrectomy. Robotic assisted approach described. 2. The [place] [facility] Data was also reviewed with benefits and risks as described. 3. An 8 page second-generation bariatric consent form was reviewed in detail i ncluding potential of bleeding, infection, leaks, adequate weight loss, nutritional deficiencies which the patient demonstrated understanding of the risks. 4. A 2 week high-protein low caloric 800 kcal diet described to address hepatomegaly. 5. Preoperative labs including complete metabolic panel and CBC with type and screen recommended. 6. DVT prophylaxis per [place] [facility]. 7. Antibiotic prophylaxis. 8. Inpatient hospitalization anticipated for more than 2 nights. 9. All questions and concerns were addressed with the patient. 10. She is at elevated risk for perioperative complications due to comorbidities 11. Overall, patient has expressed understanding of bariatric care including postoperative diet and commitment of lifestyle. Patient should benefit from surgical intervention for correction of her morbid obesity. Past Medical History Past Medical History: Asthma, Deep Vein Thrombosis (DVT), Fibromyalgia, Oste oarthritis (OA), Sleep Apnea/CPAP/BIPAP Additional Past Medical History / Comment(s): doesn't use CPAP, DVT leg after knee replacement surg. 3 yrs. ago History of Any Multi-Drug Resistant Organisms: None Reported Past Surgical History: Cholecystectomy, Joint Replacement, Orthopedic Surgery, Tubal Ligation Additional Past Surgical History / Comment(s): bilateral knee surg., right knee replaced Past Anesthesia/Blood Transfusion Reactions: No Reported Reaction Smoking Status: Never smoker - Past Family History Mother Family Medical History: No Reported History Medications and Allergies Home Medications Medication Instructions Recorded Confirmed Type Beclomethasone Dipropionate [Qvar 2 puff INHALATION RT-BID 10/12/20 11/07/21 History 80mcg Redihaler] Albuterol Inhaler [Ventolin Hfa 2 puff INHALATION RT-Q6H PRN 05/03/21 11/07/21 History Inhaler] HYDROcodone/APAP 10-325MG [[place] 1 tab PO QID PRN 05/03/21 11/07/21 History 10-325] Allergies Allergy/AdvReac Type Severity Reaction Status Date / Time adhesive Allergy Rash/Hives Verified 11/07/21 11:40 tramadol Allergy Nausea & Verified 11/07/21 11:40 Vomiting & Diarrhea
[~2021-11-13 12:00] MED LIST changes: +ACETAMINOPHEN TAB 500 MG TAB PO PRN; +CHLORHEXIDINE GLUCONATE 15 ML CUP MUCOUS MEM PRN; +DEXAMETHASONE SOD PHOSPHATE 4 MG/ML 1 ML VIAL IV ONE; +ENOXAPARIN 40 MG/0.4 ML SYRINGE SQ PRN; +GABAPENTIN 300 MG CAP PO PRN; -LACTATED RINGERS 1,000 ML IV SCH; +METOCLOPRAMIDE 5 MG/ML 2 ML VIAL IVP PRN; +ONDANSETRON 4 MG/2 ML VIAL IVP ONE; +PANTOPRAZOLE 40 MG/10 ML VIAL IVP PRN; +SCOPOLAMINE 1 MG/72 HR PATCH TRANSDERM ONE
[2021-11-13] MEDS: LACTATED RINGERS 1,000 ML IV SCH (14:01)
[2021-11-13] MEDS ORDERED: ROCURONIUM 10 MG/ML (5 ML VIAL) IV ONE (16:37)
[2021-11-13] MEDS ORDERED: HYDROmorphone (PF) 1 MG/ML ONE (16:37)
[2021-11-13] MEDS ORDERED: LIDOCAINE 2% INJ 20 MG/ML (2 ML VIAL) ONE (16:37)
[2021-11-13] MEDS ORDERED: MIDAZOLAM 2 MG/2 ML VIAL ONE (16:37)
[2021-11-13] MEDS ORDERED: GLYCOPYRROLATE 0.2 MG/ML 2 ML VIAL ONE (16:37)
[2021-11-13] MEDS ORDERED: PROPOFOL 10 MG/ML 20 ML VIAL IV ONE (16:37)
[2021-11-13] MEDS ORDERED: NEOSTIGMINE 1 MG/ML 10 ML VIAL ONE (16:37)
[2021-11-13] MEDS ORDERED: fentaNYL (PF) 50 MCG/ML 2 ML AMP ONE (16:37)
[2021-11-13] MEDS ORDERED: SUCCINYLCHOLINE CHLORIDE 100 MG/5 ML SYR IV ONE (16:37)
[2021-11-13] MEDS ORDERED: BUPIVACAIN-EPI 0.25%-1:200,000 30 ML VIAL SQ ONE ×2 (17:09)
[2021-11-13] MEDS ORDERED: NALOXONE 0.4 MG/ML 1 ML VIAL IV PRN ×2 (18:15→18:20)
[2021-11-13] MEDS ORDERED: diphenhydrAMINE 50 MG/ML 1 ML VIAL IVP PRN (18:15)
[2021-11-13] MEDS ORDERED: METOCLOPRAMIDE 5 MG/ML 2 ML VIAL IVP PRN (18:20)
[2021-11-13] MEDS ORDERED: HYDROcodone/APAP 10-325MG 1 EACH TAB PO PRN (18:22)
[2021-11-13] MEDS ORDERED: HYDROmorphone 1 MG/ML 1 ML SYRINGE IVP PRN (18:22)
[2021-11-13] MEDS ORDERED: ALBUTEROL NEBULIZED 2.5 MG/3 ML INHALATION PRN (18:22)
[2021-11-13] MEDS ORDERED: TRIMETHOBENZAMIDE 100 MG/ML 2 ML VIAL IM PRN (18:22)
--- NOTE | 2021-11-13 18:27 | P.OP ---
Date of Procedure: 11/13/21 Description of Procedure: SURGEON: AARON PUENTE MD PREOPERATIVE DIAGNOSES: 1. Morbid obesity due to excess calories 2. Body mass index of 44.3, initial 3. Chronic obstructive pulmonary disease with asthma 4. Fibromyalgia 5. Obstructive sleep apnea 6. Osteoarthritis of the knees 7. Gastroesophageal reflux disease. 8. Osteoarthritis lower back 9. Osteoarthritis of the hip 10. DVT 11. Gastritis 12. Anemia 13. Iron deficiency anemia 14. Calcium deficiency 15. Vitamin A deficiency 16. Hyperparathyroidism POSTOPERATIVE DIAGNOSES: 1. Morbid obesity due to excess calories 2. Body mass index of 44.3, initial 3. Chronic obstructive pulmonary disease with asthma 4. Fibromyalgia 5. Obstructive sleep apnea 6. Osteoarthritis of the knees 7. Gastroesophageal reflux disease. 8. Osteoarthritis lower back 9. Osteoarthritis of the hip 10. DVT 11. Gastritis 12. Anemia 13. Iron deficiency anemia 14. Calcium deficiency 15. Vitamin A deficiency 16. Hyperparathyroidism OPERATION: 1. Robotic assisted daVinci Xi laparoscopic sleeve gastrectomy with 40-Khmer bougie, multiport. 2. Intraoperative esophagogastroduodenoscopy. ANESTHESIA: Gen. local anesthetic ESTIMATED BLOOD LOSS: 5 mL SPECIMENS REMOVED: Sleeve gastrectomy COMPLICATIONS: None. FINDINGS: 1. Negative intraoperative esophagogastrojejunoscopy leak test. 2. No hepatomegaly and no large hiatus hernia. 3. Total of 5 staplers used including 3 - 60 mm blue robot adriana and 2 - 60 mm green robot loads used to create the gastric sleeve. 4. Sleeve gastrectomy, 21 x 4 cm INDICATIONS: Venessa Romo is a 46-year-old female who comes with lifelong morbid obesity. She is looking into the gastric sleeve gastrectomy. As a result of her obesity, she has developed obstructive sleep apnea and osteoarthritis. She has completed medical supervised weight loss including the bariatric clearances. At height of 4 feet 11.5 inches, her ideal body weight is 123 pounds. Highest weight is 225 pounds with body mass index 44.8. She comes in 212 pounds. Her body mass index is 41.6. She is 90 pounds overweight. All surgical options for morbid obesity had been described using the [place] bariatric surgery collaborative comorbidity resolution including complication risk score. A second-generation bariatric consent form was described in detail including the possibility of protein malnutrition, leaks, gastric stricture, venous thrombosis, gastroesophageal reflux disease, need for further surgery for which she demonstrated understanding. Benefits and risks of the procedure were described at length. Informed consent was obtained. DESCRIPTION: The patient was brought into the operating room theater. Preoperatively she had received Lovenox subcutaneously for DVT prophylaxis. Additionally she had Peridex oral solution as an oral decontaminant. After general induction, the abdomen was prepped and draped in standard sterile fashion. An Ioban draping was placed along the abdomen. A robotic da Greg Xi system was prepped and primed. At 15 cm from the xiphoid, proposed port sites were marked with indelible marker along the anterior axillary line bilaterally, mid axillary line bilaterally with each ports were marked 10 to 15 cm from each other. The robotic stapler port was marked for the right midclavicular line. A 5 mm 0 degrees laparoscopic trocar entry was performed along the left upper quadrant. The abdomen was insufflated to 15 mmHg pressure was tolerated well. Diagnostic laparoscopy demonstrated no injury to bowel, viscera, or mesentery. No evidence of large hiatus hernia was identified. The liver edge was sharp consistent with 2 week low-carb high-protein diet. A 8 mm port was placed along the left upper abdominal wall after exchanging the 5 mm port. A separate 8 mm port was placed along the left lateral abdominal wall. Please note that the ports were placed at least 20 cm away from the target anatomy. Care was taken to check each robotic arms were safely away from collision with the bed or the patient. At the epigastrium, a medium sized Morteza liver retractor was placed under direct visualization with the Iron Singer Songwriter placed under the right shoulder of the patient. Next, 12-mm robot stapler port was placed along the right upper quadrant. The camera 8-mm port was maintained along the epigastrium. The patient was repositioned in reverse Trendelenburg position at 21-degrees after lowering the bed. The robot was docked along the left side of the patient. Using a grasper for arm 4, a vessel sealer for arm 3, including grasper for arm 1, the robotic system was docked and primed as described. Instruments were interchanged by the seed laboratory assistant for stapler loads. The camera was placed at 30- degrees down. I had sat at the console. The pylorus was identified and 6 cm proximally along the greater curvature of the stomach, the short gastrics were mobilized upwards to the angle of His using a vessel sealer. Hemostasis was excellent during this portion of the procedure. Next, the upper pole of the stomach was adherent to the left amber, which was gently dissected free using atraumatic grasper. I went to the head of the bed and placed 40-Khmer blunt bougie into the stomach. The bougie was readjusted by the nurse surgical technologist. Robotic stapler green load 60 mm 2 followed by blue 60 mm x 3 loads were used to create the sleeve. Initial firing was across the antrum of the stomach towards the angle of His. The staple line was linear without corkscrewing. The space from the angularis incisura of the sleeve was approximately 4 cm. I then went to the head of the bed to perform the intraoperative esophagogastroduodenoscopy leak test. The bougie was withdrawn. The upper pole of the stomach was bathed using normal saline solution. The scope was withdrawn with careful inspection along the staple line for which no leaks were found along the entire length. Additionally,the sleeve was completely hemostatic without any encroachment along the angularis incisura. Its topology was a soft "J". No stricture was encountered upon placement of the scope. The GI tract was desufflated. The patient tolerated this portion of the procedure well. The scope was completely withdrawn. The robot was undocked. I then rescrubbed into case, whereby the irrigation fluid was aspirated from the abdominal cavity. Tisseel fibrin sealant was placed along the entire staple length. Once dried the Morteza liver retractor was removed. Attention was now brought to removal of the specimen. The distal end of the sleeve gastrectomy specimen was brought out through the 12 mm port at the left upper quadrant. The specimen was gently removed en total. No contamination had occurred during this process. All instruments and pneumoperitoneum including irrigation fluid was removed from the abdominal cavity. The 12 mm port site was irrigated with diluted hydrogen peroxide. The final incisions were closed using subcuticular interrupted suture of 4-0 Monocryl. Exofin was applied to the skin once the skin had been cleansed. OptiFoam dressing was placed along the stomach extraction site. The sleeve specimen was measured and checked also for leaks which none were found. At the end of the procedure, needle, sponge, and instrument count was verified correct by the operating room surgical technician. The patient was taken to the postanesthesia care unit in stable condition. She had tolerated the procedure well. Intraoperative films and findings were reviewed with the patient's family.
[2021-11-13] MEDS: HYDROmorphone 0.5 MG/0.5 ML SYRINGE IVP PRN ×2 (18:30→19:13)
[2021-11-13] MEDS ORDERED: ONDANSETRON 4 MG/2 ML VIAL IVP ONE (19:07)
[2021-11-13] MEDS ORDERED: SIMETHICONE 40 MG/0.6 ML DROPS 2,000 MG/30 ML BOTTLE PO ONE (19:14)
[2021-11-13] MEDS ORDERED: fentaNYL PCA 500 MCG/50 ML BAG IV PRN (19:30)
[2021-11-13] MEDS: PANTOPRAZOLE 40 MG/10 ML VIAL IV SCH (19:52)
[2021-11-13] MEDS: SIMETHICONE 40 MG/0.6 ML DROPS 2,000 MG/30 ML BOTTLE PO SCH (19:57)
[2021-11-13] MEDS ORDERED: SCOPOLAMINE 1 MG/72 HR PATCH TRANSDERM SCH (20:00)
[2021-11-13] MEDS: FLUTICASONE 110 MCG INHALER INHALATION SCH (20:58)
[2021-11-13] MEDS: ALBUTEROL NEBULIZED 2.5 MG/3 ML INHALATION SCH (20:58)
[2021-11-13] MEDS ORDERED: SODIUM CHLORIDE 0.9% 2,000 ML IV ONE (21:00)
[2021-11-13] MEDS ORDERED: DEXAMETHASONE SOD PHOSPHATE 10 MG/ML 1 ML VIAL IVP ONE (21:00)
[2021-11-13] MEDS: 0.9% NACL WITH KCL 20 MEQ/L 1,000 ML IV SCH (22:33)
[2021-11-13] MEDS: DEXAMETHASONE SOD PHOSPHATE 4 MG/ML 1 ML VIAL IVP SCH (23:27)
[2021-11-13] MEDS: ACETAMINOPHEN IV (For NPO) 1,000 MG in EMPTY BAG 1 BAG IVPB SCH (23:28)
[2021-11-13] MEDS: ONDANSETRON 4 MG/2 ML VIAL IVP SCH (23:35)
[2021-11-13] MEDS: HYOSCYAMINE ORAL DROPS 1.875 MG/15 ML BOTTLE PO SCH (23:35)
[2021-11-14] MEDS: LACTATED RINGERS 1,000 ML IV SCH (04:59)
[2021-11-14] MEDS: 0.9% NACL WITH KCL 20 MEQ/L 1,000 ML IV SCH (05:13)
[2021-11-14] MEDS: ONDANSETRON 4 MG/2 ML VIAL IVP SCH ×2 (05:14→11:02)
[2021-11-14] MEDS: DEXAMETHASONE SOD PHOSPHATE 4 MG/ML 1 ML VIAL IVP SCH ×2 (05:15→11:02)
[2021-11-14] MEDS: ACETAMINOPHEN IV (For NPO) 1,000 MG in EMPTY BAG 1 BAG IVPB SCH ×2 (05:17→11:01)
[2021-11-14] MEDS: HYOSCYAMINE ORAL DROPS 1.875 MG/15 ML BOTTLE PO SCH ×2 (05:21→11:03)
[2021-11-14 07:53] VITALS: BP 107/63; RESP 19; TEMP 97.6
--- NOTE | 2021-11-14 07:57 | P.PN ---
Progress Note - Text Progress Note Date: 11/13/21 Patient reports no moderate nausea. Pain controlled. Myla-operative care discussed with possible discharge in 24hrs pending clinical course. Questions answered.
[2021-11-14] MEDS ORDERED: 0.9% NACL WITH KCL 20 MEQ/L 1,000 ML IV SCH (08:00)
[2021-11-14] MEDS: ALBUTEROL NEBULIZED 2.5 MG/3 ML INHALATION SCH ×2 (08:17→11:42)
[2021-11-14] MEDS: FLUTICASONE 110 MCG INHALER INHALATION SCH (08:17)
[2021-11-14 08:34] VITALS: PULSE 60
[2021-11-14] MEDS: SIMETHICONE 40 MG/0.6 ML DROPS 2,000 MG/30 ML BOTTLE PO SCH ×2 (08:35→11:02)
[2021-11-14] MEDS: PANTOPRAZOLE 40 MG/10 ML VIAL IV SCH (08:35)
[2021-11-14] MEDS ORDERED: ENOXAPARIN 30 MG/0.3 ML SYRINGE SQ SCH (09:00)
--- NOTE | 2021-11-14 09:26 | FL ---
EXAMINATION TYPE: FL UGI DATE OF EXAM: 11/14/2021 COMPARISON: NONE HISTORY: Postop TECHNIQUE: A single contrast UGI study is performed. A total of 20 seconds of fluoroscopic time was utilized during procedure and 9 images obtained. FINDINGS: Contrast was swallowed without difficulty with a mild delay in passage of the GE junction. There was contrast within the stomach. Surgical clips in the gallbladder fossa incidentally noted. No extravasation. IMPRESSION: 1. Mild delay at the GE junction with no evidence of extravasation..
[2021-11-14 10:37] LABS: Basophils # (A) 0.01 X 10*3/uL (0.00-0.10); Basophils % (A) 0.1 %; Eosinophils # (A) 0 X 10*3/uL (0.04-0.35); Eosinophils % (A) 0 %; HCT 37.7 % (37.2-46.3); Immature Grans, Automated 0.7 %; Lymphocytes # (A) 0.82 X 10*3/uL (0.90-5.00); Lymphocytes % (A) 7.5 %; MCH 29.1 pg (27.0-32.0); MCHC 31.8 g/dL (32.0-37.0); MCV 91.5 fL (80.0-97.0); Mean Platelet Volume 10.8 fL (9.5-12.2); Monocytes # (A) 0.04 X 10*3/uL (0.20-1.00); Monocytes % (A) 0.4 %; NRBC Per 100 WBC 0 /100 WBCS (0.0-0.0); Neutrophils % (A) 91.3 %; Platelet Count 266 X 10*3/uL (140-440); RBC 4.12 X 10*6/uL (4.10-5.20); RDW 12.7 % (11.5-14.5); WBC 10.95 X 10*3/uL (4.50-10.00)
[2021-11-14 10:51] LABS: African American GFR (CKD) 120.4 (60.0-200.0); Blood Urea Nitrogen 7.6 mg/dL (9.0-27.0); Calcium 8.2 mg/dL (8.7-10.3); Non-African American GFR(CKD) 103.9 (60.0-200.0); Phosphorus 2.1 mg/dL (2.4-5.1); Potassium 4.4 mmol/L (3.5-5.5)
[2021-11-14 10:54] LABS: Magnesium 1.8 mg/dL (1.5-2.4)
[2021-11-14 11:36] VITALS: BMI 41.5
--- NOTE | 2021-11-14 14:06 | P.DS ---
Providers Date of admission: 11/13/21 13:00 Expected date of discharge: 11/14/21 Attending physician: Hilda Tineo Primary care physician: Stated None Hospital Course: Discharge diagnosis 1. Morbid obesity due to excess calories 2. Body mass index of 44.3, initial 3. Chronic obstructive pulmonary disease with asthma 4. Fibromyalgia 5. Obstructive sleep apnea 6. Osteoarthritis of the knees 7. Gastroesophageal reflux disease. 8. Osteoarthritis lower back 9. Osteoarthritis of the hip 10. DVT 11. Gastritis 12. Anemia 13. Iron deficiency anemia 14. Calcium deficiency 15. Vitamin A deficiency 16. Hyperparathyroidism Hospital course Venessa Romo is a 46-year-old female who comes with lifelong morbid obesity. Patient is status post Robotic assisted daVinci Xi laparoscopic sleeve gastrectomy. Upper GI showed mild delay at the GE junction with no evidence of extravasation. Patient is tolerating the bariatric clear liquids. She has been up and ambulating. She is having flatus. Her pain is controlled. She is urinating without difficulty. She is afebrile. She is stable for discharge. Physician Crematorium Operator note has been reviewed by physician. Signing provider agrees with the documented findings, assessment, and plan of care. Patient Condition at Discharge: Stable Plan - Discharge Summary Discharge Rx Participant: Yes New Discharge Prescriptions: New Omeprazole [PriLOSEC] 40 mg PO DAILY #30 cap Ondansetron Odt [Zofran Odt] 4 mg PO Q8HR PRN #9 tab PRN Reason: Nausea bisacodyL [Dulcolax] 5 mg PO DAILY PRN #10 tab PRN Reason: Constipation Simethicone 40 mg/0.6 ml Drops [Mylicon Drops] 40 mg PO PCHS PRN #30 ml PRN Reason: Gas Continue Beclomethasone Dipropionate [Qvar 80mcg Redihaler] 2 puff INHALATION RT-BID HYDROcodone/APAP 10-325MG [[place] 10-325] 1 tab PO QID PRN PRN Reason: Pain Albuterol Inhaler [Ventolin Hfa Inhaler] 2 puff INHALATION RT-Q6H PRN PRN Reason: Shortness Of Breath Discharge Medication List Beclomethasone Dipropionate [Qvar 80mcg Redihaler] 2 puff INHALATION RT-BID 10/12/20 [History] Albuterol Inhaler [Ventolin Hfa Inhaler] 2 puff INHALATION RT-Q6H PRN 05/03/21 [History] HYDROcodone/APAP 10-325MG [[place] 10-325] 1 tab PO QID PRN 05/03/21 [History] Omeprazole [PriLOSEC] 40 mg PO DAILY #30 cap 11/14/21 [Rx] Ondansetron Odt [Zofran Odt] 4 mg PO Q8HR PRN #9 tab 11/14/21 [Rx] Simethicone 40 mg/0.6 ml Drops [Mylicon Drops] 40 mg PO PCHS PRN #30 ml 11/14/21 [Rx] bisacodyL [Dulcolax] 5 mg PO DAILY PRN #10 tab 11/14/21 [Rx] [place] [facility] Patient Instructions/Handouts: *Surgery [facility] - Managing Your Pain After Surgery Without Opioids, Nutrition after Bariatric Surgery (GEN), Laparoscopic Sleeve Gastrectomy (DC), Nutrition after Bariatric Surgery (DC), Laparoscopic Sleeve Gastrectomy (GEN) Activity/Diet/Wound Care/Special Instructions: Wear abdominal binder at all times for comfort. No lifting over 4 pounds in 4 weeks You May shower. No bath tub soaks for two weeks Use ice along incisions for the today to prevent swelling. No straws or carbonated beverages Open, cut or crush all pills to the size smaller than a tic tac Continue the [place] as needed for pain as prescribed by her pain management physician No driving while taking narcotics Discharge Disposition: HOME SELF-CARE
[2021-11-15] MEDS ORDERED: bisacodyL 5 MG TABLET.DR PO PRN (08:00)
== END 2021-11-14 14:45 | disposition home or self-care (01) | DRG 621 ==
LOC: 2ORMAIN 13:00 → 4SSUR 18:40
PROVIDERS: ADMIT Surgery Plastic and Reconstructive Surgery; ATTEND Surgery Plastic and Reconstructive Surgery
PROC: 0DB64Z3 Excision of Stomach, Percutaneous Endoscopic Approach, Vertical (ICD-10-PCS; 2021-11-13)
PROC: 0DJ08ZZ Inspection of Upper Intestinal Tract, Via Natural or Artificial Opening Endoscopic (ICD-10-PCS; 2021-11-13)
PROC: 8E0W4CZ Robotic Assisted Procedure of Trunk Region, Percutaneous Endoscopic Approach (ICD-10-PCS; principal; 2021-11-13 12:00)
DX: E66.01 Morbid (severe) obesity due to excess calories (principal); D50.9 Iron deficiency anemia, unspecified; E21.3 Hyperparathyroidism, unspecified; E50.9 Vitamin A deficiency, unspecified; E58 Dietary calcium deficiency; G47.33 Obstructive sleep apnea (adult) (pediatric); M17.0 Bilateral primary osteoarthritis of knee; J44.9 Chronic obstructive pulmonary disease, unspecified; K21.9 Gastro-esophageal reflux disease without esophagitis; K29.70 Gastritis, unspecified, without bleeding; M16.10 Unilateral primary osteoarthritis, unspecified hip; M79.7 Fibromyalgia; Z68.41 Body mass index [BMI] 40.0-44.9, adult; Z96.653 Presence of artificial knee joint, bilateral; Z98.51 Tubal ligation status; Z90.49 Acquired absence of other specified parts of digestive tract
CPT/HCPCS: 74240; 80051; 82310; 82565; 83735; 84100; 84520; 84703; 85025; 86850; 86900; 86901; 88307; 94640

== ENCOUNTER → 2021-11-17 | Outpatient (CLI) | payer OTHER ==
[2021-11-17 09:54] VITALS: BP 102/64; PULSE 96; TEMP 97.7; BMI 41.7
--- NOTE | 2021-11-17 18:01 | P.BASOAP ---
Subjective Progress Note Date: 11/17/21 DATE OF SERVICE: 11/17/2021 CHIEF COMPLAINT: Status post sleeve gastrectomy HISTORY OF PRESENT ILLNESS: Venessa Romo is a 46-year-old female status post sleeve gastrectomy 11/13/2021. She is postop day 4. She is clinically doing well. Her fluids at 32 oz. Her vitals are well. She has minimal nausea. At height of 4 feet 11.5 inches, her ideal body weight is 123 pounds. Highest weight is 226 pounds with body mass index 45.0. She comes in 210 pounds from 217 pounds, 2 weeks ago. She has lost 7 pounds in 2 weeks. Her body mass index is 41.7. She is 87 pounds overweight. Lifetime weight loss 16 pounds. Percent excess lifetime eight loss 16%. PHYSICAL EXAM: VITAL SIGNS: Height 4 foot 11.5 inches, weight 210 pounds. BMI 41.7 Vital Signs Temp 97.7 F 11/17/21 09:42 Pulse 96 11/17/21 09:42 Resp BP 102/64 11/17/21 09:42 Pulse Ox FiO2 GENERAL: Well-developed in no acute distress. HEENT: No scleral icterus. Extraocular movements grossly intact. Hears conversational speech. No nasal drainage. NECK: Supple without lymphadenopathy. CHEST: Nonlabored respirations with equal bilateral excursions. CARDIOVASCULAR: Regular rate and regular rhythm. Distal 2+ pulses. ABDOMEN: No infection. Binder re-positioned. MUSCULOSKELETAL: No clubbing, cyanosis. NEURO: No focal or lateralizing signs. Cranial nerves 2 through 12 grossly within normal limits. PSYCH: Appropriate affect. Alert and oriented to person, place and time. SKIN: Good skin turgor. Well perfused. ASSESSMENT: 1. Morbid obesity due to excess calories 2. Body mass index up to 44.9 to 43.1 3. Chronic obstructive pulmonary disease with asthma 4. Fibromyalgia 5. Obstructive sleep apnea 6. Osteoarthritis of the knees 7. Gastroesophageal reflux disease. 8. Osteoarthritis lower back 9. Osteoarthritis of the hip 10. DVT 11. 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 Anemia 13. Iron deficiency anemia 14. Calcium deficiency 15. Vitamin A deficiency 16. Hyperparathyroidism 17. Gastritis 18. Vitamin D deficiency 19. Status post sleeve gastrectomy PLAN: 1. She is doing well. Increase protein intake 75 g daily. 2. Follow up 1 week. Objective - Vital Signs Vital signs: Vital Signs Temp 97.7 F 11/17/21 09:42 Pulse 96 11/17/21 09:42 Resp BP 102/64 11/17/21 09:42 Pulse Ox FiO2 Intake & Output 11/16/21 11/17/21 11/17/21 18:59 06:59 18:59 Weight 95.254 kg Assessment/Plan Plan: Date: 11/17/21 Initial Weight: 101.151 kg Initial BMI: 44.2 Current Weight: 95.254 kg Current BMI: 41.7 Type of Surgery: Total Volume in Band: Previous Volume: Volume Removed: Volume Added: Band Size:
== END ==
LOC: BARWHC3 08:48
PROVIDERS: ATTEND Surgery Plastic and Reconstructive Surgery
DX: J44.9 Chronic obstructive pulmonary disease, unspecified (principal); E66.01 Morbid (severe) obesity due to excess calories; Z68.41 Body mass index [BMI] 40.0-44.9, adult; G47.33 Obstructive sleep apnea (adult) (pediatric); M79.7 Fibromyalgia; M17.9 Osteoarthritis of knee, unspecified; K21.9 Gastro-esophageal reflux disease without esophagitis; M16.9 Osteoarthritis of hip, unspecified; M47.817 Spondylosis without myelopathy or radiculopathy, lumbosacral region; I82.409 Acute embolism and thrombosis of unspecified deep veins of unspecified lower extremity; F80.1 Expressive language disorder; D50.9 Iron deficiency anemia, unspecified; E50.9 Vitamin A deficiency, unspecified; E55.9 Vitamin D deficiency, unspecified; E21.3 Hyperparathyroidism, unspecified; Z98.84 Bariatric surgery status; K29.70 Gastritis, unspecified, without bleeding
CPT/HCPCS: 99211

== ENCOUNTER 2022-02-06 19:54 | Emergency (ER) | payer OTHER ==
[2022-02-06 20:02] VITALS: BP 111/66; TEMP 97.8
[2022-02-06] MEDS ORDERED: IPRATROPIUM-ALBUTEROL 3 ML NEB INHALATION STA (20:40)
[2022-02-06] MEDS ORDERED: predniSONE 50 MG TAB PO STA (20:40)
--- NOTE | 2022-02-06 20:44 | XR ---
EXAMINATION TYPE: XR chest 2V DATE OF EXAM: 02/06/2022 COMPARISON: 04/27/2020 HISTORY: Productive cough. Fever. TECHNIQUE: 2 views FINDINGS: Heart and mediastinum are normal. Lungs are clear. Diaphragm is normal. Bony thorax is inta ct. IMPRESSION: Normal chest. There is improved inspiration compared to old exam.
--- NOTE | 2022-02-06 20:44 | ED ---
URI HPI - General Chief Complaint: Upper Respiratory Infection Stated Complaint: uri Time Seen by Provider: 02/06/22 20:32 Source: patient, RN notes reviewed Mode of arrival: ambulatory Limitations: no limitations - History of Present Illness Initial Comments: This is a pleasant 46-year-old asthmatic female who presents to the emergency department stating that she started getting sick on Saturday. Patient complaint runny nose, cough, wheezing. Patient gets injectable asthma medication every month from her doctor. Patient also has a development spec. She is a nonsmoker. Patient states she felt febrile yesterday and ended up going to an urgent care and has been put on azithromycin. the patient has no rescue inhaler. Patient states that due to COVID-19 test in triage here. Clear to yellow runny nose. No sore throat. No ear pain. No neck stiffness. No skin rash MILD headache, myalgias, no chills, no changes in vision or hearing, no sore throat or difficulty with speech, no neck pain, WHEEZING and sensation of shortness of breath, no abdominal pain, no nausea or vomiting, no changes in urination or bowel movements, no numbness or tingling, no extremity pain, no skin rashes or lesions. Past medical, surgical, social, and family history reviewed. - Related Data Home Medications Medication Instructions Recorded Confirmed Beclomethasone Dipropionate [Qvar 2 puff INHALATION RT-BID 10/12/20 12/13/21 80mcg Redihaler] Albuterol Inhaler [Ventolin Hfa 2 puff INHALATION RT-Q6H PRN 05/03/21 12/13/21 Inhaler] HYDROcodone/APAP 10-325MG [[place] 1 tab PO QID PRN 05/03/21 12/13/21 10-325] Previous Rx's Medication Instructions Recorded Omeprazole [PriLOSEC] 40 mg PO DAILY #30 cap 11/14/21 Ondansetron Odt [Zofran Odt] 4 mg PO Q8HR PRN #9 tab 11/14/21 Simethicone 40 mg/0.6 ml Drops 40 mg PO PCHS PRN #30 ml 11/14/21 [Mylicon Drops] bisacodyL [Dulcolax] 5 mg PO DAILY PRN #10 tab 11/14/21 Albuterol Inhaler [Ventolin Hfa 2 puff INHALATION Q4HR PRN #1 each 02/06/22 Inhaler] predniSONE 50 mg PO DAILY #5 tab 02/06/22 Allergies Allergy/AdvReac Type Severity Reaction Status Date / Time adhesive Allergy Rash/Hives Verified 11/13/21 13:31 tramadol Allergy Nausea & Verified 11/13/21 13:31 Vomiting & Diarrhea Review of Systems ROS Statement: Those systems with pertinent positive or pertinent negative responses have been documented in the HPI. ROS Other: All systems not noted in ROS Statement are negative. Past Medical History Past Medical History: Asthma, Fibromyalgia, Sleep Apnea/CPAP/BIPAP Additional Past Medical History / Comment(s): arthiritis. History of Any Multi-Drug Resistant Organisms: None Reported Past Surgical History: Bariatric Surgery, Cholecystectomy, Orthopedic Surgery, Tubal Ligation Additional Past Surgical History / Comment(s): bilateral knee. sleeve gastrectomy 11-13-21 Past Anesthesia/Blood Transfusion Reactions: No Reported Reaction Past Psychological History: Depression Smoking Status: Never smoker Past Alcohol Use History: None Reported Past Drug Use History: None Reported - Past Family History Mother Family Medical History: No Reported History General Exam - General Exam Comments Initial Comments: This is a healthy-appearing 46-year-old female in no significant distress at the time I'm seeing her. Patient does not appear to be ill or toxic. Vital signs are reviewed. Capillary refill less than 2 seconds. No mottling. Normal color. Moist mucous membranes Limitations: no limitations General appearance: alert, in no apparent distress Head exam: Present: atraumatic, normocephalic, normal inspection Eye exam: Present: normal appearance, PERRL, EOMI. Absent: scleral icterus, conjunctival injection, periorbital swelling ENT exam: Present: normal exam, normal oropharynx, mucous membranes moist, TM's normal bilaterally, normal external ear exam, other (Clear runny nose noted). Absent: mucous membranes dry Neck exam: Present: normal inspection, full ROM. Absent: tenderness, meningismus, lymphadenopathy Respiratory exam: Present: wheezes (Patient has a dry cough and some expiratory wheezing.). Absent: respiratory distress, rales, rhonchi, stridor, chest wall tenderness, accessory muscle use, decreased breath sounds, prolonged expiratory Cardiovascular Exam: Present: regular rate, normal rhythm, normal heart sounds. Absent: systolic murmur, diastolic murmur, rubs, gallop, clicks GI/Abdominal exam: Present: soft, normal bowel sounds. Absent: distended, tenderness, guarding, rebound, rigid Extremities exam: Present: normal inspection, full ROM, normal capillary refill. Absent: tenderness, pedal edema, joint swelling, calf tenderness Back exam: Present: normal inspection Neurological exam: Present: alert, oriented X3, CN II-XII intact Psychiatric exam: Present: normal affect, normal mood Skin exam: Present: warm, dry, intact, normal color. Absent: rash Course Vital Signs 02/06/22 02/06/22 02/06/22 19:57 20:56 21:05 Temperature 97.8 F Pulse Rate 80 75 78 Respiratory 20 18 Rate Blood Pressure 111/66 O2 Sat by Pulse 98 Oximetry - Reevaluation(s) Reevaluation #1: 02/06/22 21:16 Medical record is reviewed Symptoms are improved here in the emergency department Patient is informed of results and questions answered Patient in no distress Medical Decision Making - Medical Decision Making Patient septostomy most consistent with a viral upper respiratory infection with cough. Certainly COVID-19 would be in the differential. Awaiting testing. Patient's 2 view chest x-ray shows no evidence of acute pathology as read by me. Awaiting radiology interpretation. Patient is already on Zithromax via the urgent care. I'm going to add on prednisone 50 mg and a rescue inhaler. Patient can make a follow-up appointment with her regular physician and her development spec. Patient shows no evidence of respiratory distress. - Lab Data Lab Results 02/06/22 Range/Units 20:04 Coronavirus (PCR) Not Detected (Not Detectd) Disposition Clinical Impression: Upper respiratory infection, Mild asthma exacerbation Disposition: HOME SELF-CARE Condition: Good Instructions (If sedation given, give patient instructions): Upper Respiratory Infection (ED), Asthma (ED) Additional Instructions: Follow-up with your regular physician as directed. Return to the ER immediately if any symptoms worsen, new symptoms arise, or any other problems develop. Make an appointment with your development spec as well Is patient prescribed a controlled substance at d/c from ED?: No Referrals: Sondra Ortiz MD [Primary Care Provider] - 1-2 days Time of Disposition: 21:17
[2022-02-06 20:57] VITALS: RESP 18
[2022-02-06 21:06] VITALS: PULSE 78
== END 2022-02-06 21:25 | disposition home or self-care (01) ==
LOC: EC 19:54
DX: J45.21 Mild intermittent asthma with (acute) exacerbation (principal); J06.9 Acute upper respiratory infection, unspecified; Z91.048 Other nonmedicinal substance allergy status; Z88.5 Allergy status to narcotic agent; Z99.89 Dependence on other enabling machines and devices; Z20.822 Contact with and (suspected) exposure to COVID-19
CPT/HCPCS: 94640; 87635; 71046; 99283; J7512

== ENCOUNTER → 2022-05-19 | Outpatient (CLI) | payer OTHER ==
--- NOTE | 2022-05-20 04:31 | MR ---
EXAMINATION TYPE: MR lumbar spine wo/w con DATE OF EXAM: 05/19/2022 COMPARISON: None HISTORY: LOW BACK PAIN CONTRAST: Standard multiplanar, multisequence MRI departmental protocol images were obtained without contrast a nd with 8 mL intravenous Gadavist gadolinium contrast. Multiplanar multiecho imaging of the lumbar spine performed without contrast. The vertebral abnormal alignment. Disc spaces are fairly normal. No compression fracture. No focal andrés ne destruction. There is developmentally adequate spinal canal. No spinal stenosis. The neural forami na are fairly well maintained. There is no lumbar paraspinal mass. Posterior elements are intact. No spinal stenosis. IMPRESSION: No significant abnormality CT scan of the lumbar spine.
== END | disposition home or self-care (01) ==
LOC: RADMRIMAIN 13:37
PROVIDERS: ATTEND Nurse Practitioner Family
DX: M54.50 Low back pain, unspecified (principal)
CPT/HCPCS: 72158; A9585

== ENCOUNTER → 2022-05-23 | Outpatient (CLI) | payer OTHER ==
[2022-05-23 14:46] VITALS: BP 114/71; PULSE 66; TEMP 97.9; BMI 36.1
--- NOTE | 2022-05-23 15:34 | P.BASOAP ---
Subjective Progress Note Date: 05/23/22 Patient reports severe gastroesophageal reflux disease were sent night. Patient reports unrelieved and antacid therapy with omeprazole 40 mg daily. Recommend upper endoscopy. May need additional testing. Also, her weight is slowing down and she 6 months out. Use of food Didronel advised. Increase protein intake to at least 75 g daily reinforced. First Aid Nurse present. Objective - Vital Signs Vital signs: Vital Signs Temp 97.9 F 05/23/22 14:40 Pulse 66 05/23/22 14:40 Resp BP 114/71 05/23/22 14:40 Pulse Ox FiO2 Intake & Output 05/22/22 05/23/22 05/23/22 18:59 06:59 18:59 Weight 82.554 kg Assessment/Plan Plan: Date: 05/23/22 Initial Weight: 101.151 kg Initial BMI: 44.2 Current Weight: 82.554 kg Current BMI: 36.1 Type of Surgery: Total Volume in Band: Previous Volume: Volume Removed: Volume Added: Band Size:
== END ==
LOC: BARWHC3 14:12
PROVIDERS: ATTEND Surgery Plastic and Reconstructive Surgery
DX: Z71.3 Dietary counseling and surveillance (principal); E66.01 Morbid (severe) obesity due to excess calories; Z68.36 Body mass index [BMI] 36.0-36.9, adult; Z91.048 Other nonmedicinal substance allergy status; Z88.5 Allergy status to narcotic agent
CPT/HCPCS: 97803; G0463; 99211

== ENCOUNTER → 2022-05-24 | Outpatient (CLI) | payer OTHER ==
--- NOTE | 2022-05-25 11:40 | MM ---
Reason for Exam: Screening (asymptomatic). Baseline mammogram. Patient History: Menarche at age 10. First Full-Term at age 17. Last menstrual period: 05/21/2022 Risk Values: Gwen 5 year model risk: 0.7%. NCI Lifetime model risk: 7.6%. Prior Study Comparison: Patient's first Mammogram. Tissue Density: The breast tissue is heterogeneously dense. This may lower the sensitivity of mammography. Findings: Analyzed By CAD. There are a few scattered and loosely grouped tiny benign-appearing round calcifications bilaterally. Benign-appearing bilateral axillary lymph nodes are present. There is no distortion or suspicious mass in either breast. Overall Assessment: Benign, BI-RAD 2 Management: Screening Mammogram of both breasts in 1 year. Some advise bilateral breast ultrasound surveillance in patients with background dense tissue. A clinical breast exam by your physician is recommended on an annual basis and results should be correlated with mammographic findings. Electronically signed and approved by: Yash Arcos M.D.
== END | disposition home or self-care (01) ==
LOC: RADMAMWWP 09:52
PROVIDERS: ATTEND Family Medicine
DX: Z12.31 Encounter for screening mammogram for malignant neoplasm of breast (principal)
CPT/HCPCS: 77063; 77067

== ENCOUNTER → 2022-06-20 | Outpatient (CLI) | payer OTHER ==
[2022-06-20 15:10] VITALS: BP 124/75; PULSE 76; TEMP 98; BMI 36.7
--- NOTE | 2022-06-20 16:27 | P.BASOAP ---
Subjective Progress Note Date: 06/20/22 DATE OF SERVICE: 06/20/2022 CHIEF COMPLAINT: Status post sleeve gastrectomy HISTORY OF PRESENT ILLNESS: Venessa Romo is a 47-year-old female status post sleeve gastrectomy 11/13/2021. She is 7 months out. She has severe distal esophageal spasm. Her spasms started 3 months ago. She reports moderate to severe epigastric pain. She has worsening symptoms. She presents for treatment options. At height of 4 feet 11.5 inches, her ideal body weight is 123 pounds. Highest weight is 226 pounds with body mass index 45.0. She comes in 185 pounds from 210 pounds, 7 months ago. She has lost 25 pounds in 7 months. Her body mass index is 36.7. She is 62 pounds overweight. Lifetime weight loss 41 pounds. Percent excess lifetime weight loss 40 %. PAST MEDICAL HISTORY: 1. Morbid obesity due to excess calories 2. Body mass index of 44.3, initial 3. Chronic obstructive pulmonary disease with asthma 4. Fibromyalgia 5. Obstructive sleep apnea 6. Osteoarthritis of the knees. 7. Gastroesophageal reflux disease. 8. Osteoarthritis lower back 9. Osteoarthritis of the hip 10. DVT PAST SURGICAL HISTORY: 1. Cholecystectomy 2. Tubal ligation 3. Bilateral knee replacement 4. Sleeve gastrectomy HOME MEDICATIONS: Home Medications Medication Instructions Recorded Confirmed Beclomethasone Dipropionate [Qvar 2 puff INHALATION RT-BID 10/12/20 08/15/22 80mcg Redihaler] HYDROcodone/APAP 10-325MG [[place] 1 tab PO QID PRN 05/03/21 08/15/22 10-325] Omeprazole [PriLOSEC] 40 mg PO BID 05/23/22 08/15/22 bisacodyL [Dulcolax] 5 mg PO BID 05/23/22 08/15/22 Previous Rx's Medication Instructions Recorded Albuterol Inhaler [Ventolin Hfa 2 puff INHALATION Q4HR PRN #1 each 02/06/22 Inhaler] Hyoscyamine Elixir [Levsin 0.125 mg PO BID #10 ml 06/20/22 0.125MG/ML Drops] Dicyclomine [Bentyl] 10 mg PO QID #30 capsule 08/15/22 ALLERGIES: Allergies Allergy/AdvReac Type Severity Reaction Status Date / Time adhesive Allergy Rash/Hives Verified 06/27/22 16:26 tramadol Allergy Nausea & Verified 06/27/22 16:26 Vomiting & Diarrhea SOCIAL HISTORY: Denies past tobacco use. FAMILY HISTORY: No family history of ulcerative colitis disease or Crohn's disease. Family history of morbid obesity. No lupus in the family. No reports of stomach or esophageal cancer. Speaks Czech and communicates with an park interpreter. REVIEW OF ORGAN SYSTEMS: CONSTITUTIONAL: At height of 4 feet 11.5 inches, her ideal body weight is 123 pounds. Highest weight is 225 pounds with body mass index 44.8. She comes in 223 pounds. Her body mass index is 44.3. She is 100 pounds overweight. HEENT: Denies any active troubles with vision or hearing. ENDOCRINE: Denies diabetes. No hypothyroidism. CARDIOVASCULAR: Denies reports of palpitations or heart attacks or chest pain. Denies hypertensive heart disease. RESPIRATORY: Has daytime somnolence. Has asthma. Has chronic obstructive pulmonary disease. GASTROINTESTINAL: Denies any bright red blood per rectum. No diarrhea. No constipation. Has gastroesophageal reflux disease. GENITOURINARY: Denies bladder urgency. No recent blood in urine MUSCULOSKELETAL: Has lower back pain and joint pain. Has osteoarthritis of the knees. NEURO: No headaches. No seizure disorders. PSYCH: Denies depression. No suicidal ideation. RHEUMATOLOGIC: No lupus. No rheumatoid arthritis. HEMATOLOGIC: Denies any abnormal bleeding or bruising. Past history of DVTs. SKIN: No rash. No skin cancer. PHYSICAL EXAM: VITAL SIGNS: Height 4 foot 11.5 inches, weight 185 pounds. BMI 36.7 Vital Signs Temp 98 F 06/20/22 15:06 Pulse 76 06/20/22 15:06 Resp BP 124/75 06/20/22 15:06 Pulse Ox FiO2 GENERAL: Well-developed in no acute distress. HEENT: No scleral icterus. Extraocular movements grossly intact. Hears conversational speech. No nasal drainage. NECK: Supple without lymphadenopathy. CHEST: Nonlabored respirations with equal bilateral excursions. CARDIOVASCULAR: Regular rate and regular rhythm. Distal 2+ pulses. ABDOMEN: No infection. Binder re-positioned. MUSCULOSKELETAL: No clubbing, cyanosis. NEURO: No focal or lateralizing signs. Cranial nerves 2 through 12 grossly within normal limits. PSYCH: Appropriate affect. Alert and oriented to person, place and time. SKIN: Good skin turgor. Well perfused. EGD FINDINGS: Tertiary esophageal contractions present with esophageal dysmotility dilated No LA grade A erosive esophagitis. No diaphragmatic hiatal hernia Biopsies obtained of duodenum and stomach for Celiac disease and H. pylori gastritis. Balloon dilation 20 mm Final Pathologic Diagnosis A. DUODENUM, BIOPSY: Benign small bowel mucosa with intact villous architecture. Negative for histopathologic abnormality. B. GASTRIC ANTRUM, BIOPSY: Mild chronic gastritis. Helicobacter pylori organisms are not identified on routine H+E sections. ASSESSMENT: 1. Morbid obesity due to excess calories 2. Body mass index up to 44.9 to 43.1 3. Chronic obstructive pulmonary disease with asthma 4. Fibromyalgia 5. Obstructive sleep apnea 6. Osteoarthritis of the knees 7. Gastroesophageal reflux disease. 8. Osteoarthritis lower back 9. Osteoarthritis of the hip 10. DVT 11. Speak zimbabwean and communicates with rapier insertion loom fixer 12. Anemia 13. Iron deficiency anemia 14. Calcium deficiency 15. Vitamin A deficiency 16. Hyperparathyroidism 17. Gastritis 18. Vitamin D deficiency 19. Status post sleeve gastrectomy 20. Presbyesophagus PLAN: 1. She has severe distal esophageal spasm. Recommend discontinue omeprazole. 2. Recommend esophagram. 3. Start on Levsin. Objective - Vital Signs Vital signs: Vital Signs Temp 98 F 06/20/22 15:06 Pulse 76 06/20/22 15:06 Resp BP 124/75 06/20/22 15:06 Pulse Ox FiO2 Intake & Output 06/19/22 06/20/22 06/20/22 18:59 06:59 18:59 Weight 83.915 kg Assessment/Plan Plan: Date: 06/20/22 Initial Weight: 101.151 kg Initial BMI: 44.2 Current Weight: 83.915 kg Current BMI: 36.7 Type of Surgery: Total Volume in Band: Previous Volume: Volume Removed: Volume Added: Band Size:
== END ==
LOC: BARWHC3 14:01
PROVIDERS: ATTEND Surgery Plastic and Reconstructive Surgery
DX: E66.01 Morbid (severe) obesity due to excess calories (principal); G47.33 Obstructive sleep apnea (adult) (pediatric); K21.9 Gastro-esophageal reflux disease without esophagitis; I82.409 Acute embolism and thrombosis of unspecified deep veins of unspecified lower extremity; Z68.36 Body mass index [BMI] 36.0-36.9, adult; Z88.5 Allergy status to narcotic agent; Z91.048 Other nonmedicinal substance allergy status
CPT/HCPCS: 99211

== ENCOUNTER → 2022-08-15 | Outpatient (CLI) | payer OTHER ==
[2022-08-15 15:42] VITALS: BP 112/71; PULSE 81; TEMP 98.1; BMI 35.7
--- NOTE | 2022-08-15 16:26 | P.BASOAP ---
Subjective Progress Note Date: 08/15/22 She has esophageal motility. Recommend bentyl for treatment. She is concerned for weight loss. Objective - Vital Signs Vital signs: Vital Signs Temp 98.1 F 08/15/22 15:39 Pulse 81 08/15/22 15:39 Resp BP 112/71 08/15/22 15:39 Pulse Ox FiO2 Intake & Output 08/14/22 08/15/22 08/15/22 18:59 06:59 18:59 Weight 81.647 kg Assessment/Plan Plan: Date: 08/15/22 Initial Weight: 101.151 kg Initial BMI: 44.2 Current Weight: 81.647 kg Current BMI: 35.7 Type of Surgery: Total Volume in Band: Previous Volume: Volume Removed: Volume Added: Band Size:
== END ==
LOC: BARWHC3 14:47
PROVIDERS: ATTEND Surgery Plastic and Reconstructive Surgery
DX: E66.01 Morbid (severe) obesity due to excess calories (principal); Z68.37 Body mass index [BMI] 37.0-37.9, adult; Z91.048 Other nonmedicinal substance allergy status; Z88.5 Allergy status to narcotic agent
CPT/HCPCS: 97803; G0463; 99211

== ENCOUNTER → 2022-09-19 | Outpatient (CLI) | payer OTHER ==
[2022-09-19 15:54] VITALS: BP 114/73; PULSE 79; RESP 12; TEMP 98
--- NOTE | 2022-09-19 16:48 | P.BASOAP ---
Subjective Progress Note Date: 09/19/22 She has complications from sleeve....needs bypass. Objective - Vital Signs Vital signs: Vital Signs Temp 98 F 09/19/22 15:46 Pulse 79 09/19/22 15:46 Resp 12 09/19/22 15:46 BP 114/73 09/19/22 15:46 Pulse Ox FiO2 Intake & Output 09/18/22 09/19/22 09/19/22 18:59 06:59 18:59 Weight 83.506 kg Assessment/Plan Plan: Date: 09/19/22 Initial Weight: 101.151 kg Initial BMI: Current Weight: 83.506 kg Current BMI: Type of Surgery: Total Volume in Band: Previous Volume: Volume Removed: Volume Added: Band Size:
== END ==
LOC: BARWHC3 14:44
PROVIDERS: ATTEND Surgery Plastic and Reconstructive Surgery
DX: E66.01 Morbid (severe) obesity due to excess calories (principal); Z88.5 Allergy status to narcotic agent; Z91.048 Other nonmedicinal substance allergy status
CPT/HCPCS: 99211

== ENCOUNTER 2022-11-26 06:49 | Day surgery (SDC) | payer OTHER ==
[2022-11-19 15:08] VITALS: BMI 35.3
[2022-11-26] MEDS ORDERED: LIDOCAINE 1% (10MG/ML) FOR IV START INTRADERMA PRN (07:13)
[2022-11-26] MEDS ORDERED: LACTATED RINGERS 1,000 ML IV SCH (07:13)
[2022-11-26 07:23] VITALS: RESP 16; TEMP 97.5
[2022-11-26] MEDS ORDERED: LIDOCAINE 2% INJ 20 MG/ML (2 ML VIAL) ONE (08:38)
[2022-11-26] MEDS ORDERED: MIDAZOLAM 2 MG/2 ML VIAL ONE (08:38)
[2022-11-26] MEDS ORDERED: PROPOFOL 10 MG/ML 20 ML VIAL IV ONE (08:38)
--- NOTE | 2022-11-26 09:01 | P.GSHP ---
History of Present Illness H&P Date: 11/26/22 CHIEF COMPLAINT: Esophageal stricture HISTORY OF PRESENT ILLNESS: The patient is a 47-year-old female who presents reports dysphagia. Upper endoscopy was offered for further evaluation and management. PAST MEDICAL HISTORY: Please see list. PAST SURGICAL HISTORY: Please see list. MEDICATIONS: Please see list. ALLERGIES: Please see list. SOCIAL HISTORY: No illicit drug use FAMILY HISTORY: No reports of Crohn disease or ulcerative colitis. REVIEW OF ORGAN SYSTEMS: CONSTITUTIONAL: No reports of fevers or chills. GI: Denies any blood in stools or constipation. PHYSICAL EXAM: VITAL SIGNS: Stable GENERAL: Well-developed and pleasant in no acute distress. HEENT: No scleral icterus. Extraocular movements grossly intact. Moist buccal mucosa. NECK: Supple without lymphadenopathy. CHEST: Unlabored respirations. Equal bilateral excursions. CARDIOVASCULAR: Regular rate and rhythm. Distal 2+ pulses. ABDOMEN: Soft, nondistended. MUSCULOSKELETAL: No clubbing, cyanosis, or edema. ASSESSMENT: 1. Esophageal stricture PLAN: 1. Recommend proceeding with an upper endoscopy with rigid dilators. Past Medical History Past Medical History: Asthma, Fibromyalgia, GERD/Reflux, Pulmonary Embolus (PE), Sleep Apnea/CPAP/BIPAP Additional Past Medical History / Comment(s): arthiritis. PE History of Any Multi-Drug Resistant Organisms: None Reported Past Surgical History: Bariatric Surgery, Cholecystectomy, Orthopedic Surgery, Tubal Ligation Additional Past Surgical History / Comment(s): bilateral knee replacements 2016,2019. sleeve gastrectomy 11-13-21 Past Anesthesia/Blood Transfusion Reactions: No Reported Reaction Additional Past Anesthesia/Blood Transfusion Reaction / Comment(s): No blood transfusion Smoking Status: Never smoker - Past Family History Mother Family Medical History: No Reported History Medications and Allergies Home Medications Medication Instructions Recorded Confirmed Type Beclomethasone Dipropionate [Qvar 2 puff INHALATION RT-BID 10/12/20 11/26/22 History 80mcg Redihaler] HYDROcodone/APAP 10-325MG [[place] 1 tab PO QID PRN 05/03/21 11/26/22 History 10-325] Albuterol Inhaler [Ventolin Hfa 2 puff INHALATION Q4HR PRN #1 each 02/06/22 11/26/22 Rx Inhaler] Omeprazole [PriLOSEC] 40 mg PO BID 05/23/22 11/26/22 History Allergies Allergy/AdvReac Type Severity Reaction Status Date / Time adhesive Allergy Rash/Hives Verified 11/26/22 07:13 tramadol Allergy Nausea & Verified 11/26/22 07:13 Vomiting & Diarrhea Surgical - Exam Vital Signs Temp Pulse Resp BP Pulse Ox 97.5 F L 62 16 100/58 100 11/26/22 07:22 11/26/22 07:22 11/26/22 07:22 11/26/22 07:22 11/26/22 07:22
[2022-11-26 09:07] VITALS: BP 126/77; PULSE 69
--- NOTE | 2022-11-26 09:21 | P.PCN ---
Date of Procedure: 11/26/22 Description of Procedure: PREOPERATIVE DIAGNOSIS: Gastroesophageal reflux disease Epigastric abdominal pain Dysphagia Severe atypical chest pain History of sleeve gastrectomy POSTOPERATIVE DIAGNOSIS: Gastroesophageal reflux disease Diaphragmatic hiatal hernia History of sleeve gastrectomy OPERATION: Esophagogastroduodenoscopy with rigid dilator over the guidewire 48 Fr with dilation Esophagogastroduodenoscopy with cold forceps biopsies stomach/antrum and duodenum SURGEON: Hilda Tineo MD ANESTHESIA: MAC. INDICATIONS: The patient is a 47-year-old male who presents with a history of gastroesophageal reflux disease with atypical chest pain and epigastric abdominal pain for over 6 months despite antacid therapy. Benefits and risks of the procedure were described. Informed consent was obtained. DESCRIPTION: The patient was brought into the endoscopy suite and laid in the left lateral d ecubitus position. After a timeout was confirmed, the procedure was initiated. An Olympus gastroscope was passed into the posterior oropharynx where lower esophageal stenosis was identified. The scope was passed down to the distal esophagus. To address the upper esophageal stenosis, rigid dilator over guidewire was selected. Next using an Surinamese rigid dilator, a guidewire was placed through the gastroscope. Next the scope was withdrawn. A 51-Hungarian rigid [place]e dilator was passed carefully along the posterior oropharynx to 45 cm and left in place for 2-3 minutes stretch. The dilator was withdrawn including the guidewire. The scope was reentered along the posterior oropharynx with no findings of full- thickness tear of the lower esophageal sphincter. Additional findings below. Sleeve gastrectomy was within normal limits. Erosive esophagitis grade C identified despite antacid therapy. Within the stomach, no acute gastritis or gastric ulcerations were identified along the body of the stomach with cold forceps biopsies obtained. The lower esophageal valve was evaluated however limited from sleeve gastrectomy. No full-thickness injury was encountered. The GI tract was desufflated. The patient tolerated the procedure well. FINDINGS: Upper esophageal stenosis dilated 51-Hungarian rigid dilator Diaphragmatic hiatus at 36 cm from the incisors Squamocolumnar junction 37 cm from the incisors. Sliding diaphragmatic hiatal hernia, 1 cm Gastritis along the gastric body and fundus cold forceps biopsies obtained No acute gastric ulcerations identified. Duodenum with mild duodenitis and biopsies obtained LA grade C erosive esophagitis Hill grade 2 lower esophageal valve. No tortuosity of sleeve gastrectomy RECOMMENDATIONS: Due to symptomatic hiatal hernia despite antacid therapy of 40 mg twice a day, recommend hiatal hernia repair Plan - Discharge Summary Discharge Rx Participant: No New Discharge Prescriptions: Continue Beclomethasone Dipropionate [Qvar 80mcg Redihaler] 2 puff INHALATION RT-BID HYDROcodone/APAP 10-325MG [[place] 10-325] 1 tab PO QID PRN PRN Reason: Pain Albuterol Inhaler [Ventolin Hfa Inhaler] 2 puff INHALATION Q4HR PRN #1 each PRN Reason: Wheezing Omeprazole [PriLOSEC] 40 mg PO BID Discharge Medication List Beclomethasone Dipropionate [Qvar 80mcg Redihaler] 2 puff INHALATION RT-BID 10/12/20 [History] HYDROcodone/APAP 10-325MG [[place] 10-325] 1 tab PO QID PRN 05/03/21 [History] Albuterol Inhaler [Ventolin Hfa Inhaler] 2 puff INHALATION Q4HR PRN #1 each 02/06/22 [Rx] Omeprazole [PriLOSEC] 40 mg PO BID 05/23/22 [History] [facility]Ref[facility] [place] [facility] Patient Instructions/Handouts: Hiatal Hernia (DC), Esophageal Dilation (DC) Activity/Diet/Wound Care/Special Instructions: Warm beverages. Recommend hiatal hernia repair Discharge Disposition: HOME SELF-CARE
== END 2022-11-26 09:53 | disposition home or self-care (01) ==
LOC: ORWHC2ENDO 06:49
PROVIDERS: ATTEND Surgery Plastic and Reconstructive Surgery
DX: K21.00 Gastro-esophageal reflux disease with esophagitis, without bleeding (principal); K22.2 Esophageal obstruction; K44.9 Diaphragmatic hernia without obstruction or gangrene; Z78.9 Other specified health status; Z79.51 Long term (current) use of inhaled steroids; K29.80 Duodenitis without bleeding; K29.50 Unspecified chronic gastritis without bleeding
CPT/HCPCS: 43248; 81025; 88305; 43239; 43249; J2250; J2704; J2001

== ENCOUNTER → 2022-12-12 | Outpatient (CLI) | payer OTHER ==
[2022-12-12 13:21] VITALS: BP 103/71; PULSE 69; TEMP 97.6; BMI 37.1
--- NOTE | 2022-12-12 13:56 | P.BASOAP ---
Subjective Progress Note Date: 12/12/22 She had an upper scope demonstrating hiatal hernia. Hiatal hernia repair is described. She wants the gastric bypass. I did tell her that a gastric bypass is no guarantee for resolution of her symptoms and with increased risk of complications. She is adamant to have her bypass. Images for a hiatal hernia. She reports global water retention and has not seen her PCP. Her EKG was reviewed. REcommend 2 week diet. She denies her symptoms are worse with spicey foods. She will start her 2 week protein diet. Food journal reviewed with protein intake 50grams. Objective - Vital Signs Vital signs: Vital Signs Temp 97.6 F 12/12/22 13:17 Pulse 69 12/12/22 13:17 Resp BP 103/71 12/12/22 13:17 Pulse Ox FiO2 Intake & Output 12/11/22 12/12/22 12/12/22 18:59 06:59 18:59 Weight 84.822 kg Assessment/Plan Plan: Date: 12/12/22 Initial Weight: 101.151 kg Initial BMI: 44.2 Current Weight: 84.822 kg Current BMI: 37.1 Type of Surgery: Total Volume in Band: Previous Volume: Volume Removed: Volume Added: Band Size:
== END ==
LOC: BARWHC3 13:08
PROVIDERS: ATTEND Surgery Plastic and Reconstructive Surgery
DX: Z53.9 Procedure and treatment not carried out, unspecified reason (principal)
CPT/HCPCS: 99211

== ENCOUNTER → 2022-12-24 | Outpatient (CLI) | payer OTHER ==
[2022-12-24 15:45] LABS: Basophils # (A) 0.01 X 10*3/uL (0.00-0.10); Basophils % (A) 0.2 %; Eosinophils # (A) 0.06 X 10*3/uL (0.04-0.35); Eosinophils % (A) 1.2 %; HCT 35.3 % (37.2-46.3); HGB 11.2 d/dL (12.0-15.0); Lymphocytes # (A) 1.79 X 10*3/uL (0.90-5.00); MCH 29.2 pg (27.0-32.0); MCHC 31.7 d/dL (32.0-37.0); MCV 91.9 FL (80.0-97.0); Mean Platelet Volume 11.1 FL (9.5-12.2); Monocytes # (A) 0.31 X 10*3/uL (0.20-1.00); Monocytes % (A) 6.1 %; NRBC Per 100 WBC 0 X 10*3/uL (0.00-0.01); Neutrophils # (A) 2.93 X 10*3/uL (1.80-7.70); Neutrophils % (A) 57.3 %; Platelet Count 222 X 10*3/uL (140-440); RBC 3.84 X 10*6/uL (4.10-5.20); RDW 12.8 % (11.5-14.5); WBC 5.11 X 10*3/uL (4.50-10.00)
[2022-12-24 15:51] LABS: ALT 15 U/L (8-44); AST 17 U/L (13-35); Albumin 4.2 d/dL (3.8-4.9); Albumin/Globulin Ratio 1.62 Ratio (1.60-3.17); Alkaline Phosphatase 74 U/L (41-126); BUN/Creat Ratio 17.29 Ratio (12.00-20.00); Blood Urea Nitrogen 12.1 mg/dL (9.0-27.0); Chloride 104 mmol/L (96-109); Globulin 2.6 d/dL (1.6-3.3); Glucose 90 mg/dL (70-110); Potassium 4.1 mmol/L (3.5-5.5); Sodium 139 mmol/L (135-145); Total Bilirubin 0.4 mg/dL (0.3-1.2); Total Protein 6.8 d/dL (6.2-8.2)
== END | disposition home or self-care (01) ==
LOC: LABPAT 09:49
PROVIDERS: ATTEND Surgery Plastic and Reconstructive Surgery
DX: Z01.812 Encounter for preprocedural laboratory examination (principal)
CPT/HCPCS: 80053; 85025

== ENCOUNTER 2022-12-31 11:34 | Emergency (ER) | payer OTHER ==
[2022-12-31 11:39] VITALS: RESP 20; TEMP 98.2
[2022-12-31] MEDS ORDERED: SODIUM CHLORIDE 0.9% 1,000 ML IV STA (11:51)
--- NOTE | 2022-12-31 12:03 | ED ---
Recheck HPI - General Chief Complaint: Recheck/Abnormal Lab/Rx Stated Complaint: low blood pressure Time Seen by Provider: 12/31/22 11:48 Source: patient Mode of arrival: ambulatory Limitations: no limitations - History of Present Illness Initial Comments: Patient is a 47-year-old female presenting to the emergency room with concerns regarding blood pressure readings at home which are 110s-105/50s-60s. She has been monitoring her blood She w pressures at home as advised after discharge from hernia repair surgery 3 days ago.as concerned that these readings were abnormal. She also reports some mild dizziness and generalized abdominal pain postsurgically without any severe abdominal pain. She denies any chest pain, shortness of breath, fevers or chills. She reports the ability to take in oral hydration well. her past medical history as listed below was reviewed. - Related Data Home Medications Medication Instructions Recorded Confirmed Beclomethasone Dipropionate [Qvar 2 puff INHALATION RT-BID PRN 10/12/20 12/28/22 80mcg Redihaler] HYDROcodone/APAP 10-325MG [[place] 1 tab PO QID PRN 05/03/21 12/28/22 10-325] Previous Rx's Medication Instructions Recorded Acetaminophen Tab [Tylenol Tab] 1,000 mg PO Q6HR PRN #30 tablet 12/29/22 Ibuprofen [Motrin] 600 mg PO Q8HR PRN #30 tab 12/29/22 Omeprazole [PriLOSEC] 40 mg PO DAILY #30 cap 12/29/22 Ondansetron Odt [Zofran Odt] 4 mg PO Q8HR PRN #9 tab 12/29/22 Simethicone 40 mg/0.6 ml Drops 40 mg PO PCHS PRN #30 ml 12/29/22 [Mylicon Drops] bisacodyL [Dulcolax] 5 mg PO DAILY PRN #10 tab 12/29/22 Hyoscyamine Elixir [Levsin 0.125 mg PO Q4-6H PRN #10 ml 12/30/22 0.125MG/ML Drops] Hyoscyamine Oral Drops [Levsin 0.125 mg PO Q4HR ml 12/30/22 Drops] Allergies Allergy/AdvReac Type Severity Reaction Status Date / Time adhesive Allergy Rash/Hives Verified 12/31/22 11:39 tramadol Allergy Nausea & Verified 12/31/22 11:39 Vomiting & Diarrhea Review of Systems ROS Statement: Those systems with pertinent positive or pertinent negative responses have been documented in the HPI. ROS Other: All systems not noted in ROS Statement are negative. Past Medical History Past Medical History: Asthma, Fibromyalgia, GERD/Reflux, Osteoarthritis (OA), Pulmonary Embolus (PE), Sleep Apnea/CPAP/BIPAP Additional Past Medical History / Comment(s): Hiatal hernia, KRISHNA without device, History of Any Multi-Drug Resistant Organisms: None Reported Past Surgical History: Bariatric Surgery, Cholecystectomy, Joint Replacement, Orthopedic Surgery, Tubal Ligation Additional Past Surgical History / Comment(s): bilateral knee replacements 2016,2019. sleeve gastrectomy 11-13-21 Past Anesthesia/Blood Transfusion Reactions: No Reported Reaction Additional Past Anesthesia/Blood Transfusion Reaction / Comment(s): No blood transfusion Past Psychological History: Depression Smoking Status: Never smoker Past Alcohol Use History: None Reported Past Drug Use History: None Reported - Past Family History Mother Family Medical History: No Reported History General Exam Limitations: language barrier General appearance: alert, in no apparent distress Head exam: Present: atraumatic, normocephalic, normal inspection Eye exam: Present: normal appearance, PERRL, EOMI. Absent: scleral icterus, conjunctival injection, periorbital swelling ENT exam: Present: normal exam, mucous membranes moist Neck exam: Present: normal inspection Respiratory exam: Present: normal lung sounds bilaterally. Absent: respiratory distress, wheezes, rales, rhonchi, stridor Cardiovascular Exam: Present: regular rate, normal rhythm, normal heart sounds. Absent: systolic murmur, diastolic murmur, rubs, gallop, clicks GI/Abdominal exam: Present: soft, tenderness (Mild generalized tenderness secondary to recent surgery), normal bowel sounds, other (Laparoscopic incisional sites 4 on abdomen with surgical glue intact well approximated without surrounding erythema or drainage.). Absent: distended, guarding, rebound, rigid Rectal exam: Present: deferred Extremities exam: Present: normal inspection. Absent: pedal edema, joint swelling Back exam: Present: normal inspection Neurological exam: Present: alert, oriented X3, CN II-XII intact Psychiatric exam: Present: normal affect, normal mood Skin exam: Present: warm, dry, intact, normal color, other (Surgical sites as above). Absent: rash Course Vital Signs 12/31/22 12/31/22 11:37 12:16 Temperature 98.2 F 98.2 F Pulse Rate 69 68 Respiratory 20 20 Rate Blood Pressure 115/68 110/59 O2 Sat by Pulse 99 99 Oximetry Medical Decision Making - Medical Decision Making Was pt. sent in by a medical professional or institution (BERYL Lambert, ACID CONDITIONING WORKER, urgent care, hospital, or [facility]...) When possible be specific @ -No Did you speak to anyone other than the patient for history (EMS, parent, family, police, friend...)? What history was obtained from this source @ -No Did you review nursing and triage notes (agree or disagree)? Why? @ -I reviewed and agree with nursing and triage notes Were old charts reviewed (outside hosp., previous admission, EMS record, old EKG, old radiological studies, urgent care reports/EKG's, [facility] records)? Report findings @ -No old charts were reviewed Differential Diagnosis (chest pain, altered mental status, abdominal pain women, abdominal pain men, vaginal bleeding, weakness, fever, dyspnea, syncope, he adache, dizziness, GI bleed, back pain, seizure, CVA, palpatations, mental health, musculoskeletal)? @ -not applicable EKG interpreted by me (3pts min.). @ -None done X-rays interpreted by me (1pt min.). @ -None done CT interpreted by me (1pt min.). @ -None done U/S interpreted by me (1pt. min.). @ -None done What testing was considered but not performed or refused? (CT, X-rays, U/S, labs)? Why? @ -None What meds were considered but not given or refused? Why? @ -None Did you discuss the management of the patient with other professionals (professionals i.e. BERYL Lambert, ACID CONDITIONING WORKER, lab, RT, psych nurse, social sciences professor, inspector floor sub assembly, teacher, electrical engineering drafting officer, immigration case manager)? Give summary @ -No Was smoking cessation discussed for >3mins.? @ -No Was critical care preformed (if so, how long)? @ -No Were there social determinants of health that impacted care today? How? (Homelessness, low income, unemployed, alcoholism, drug addiction, transportation, low edu. Level, literacy, decrease access to med. care, intermediate, rehab)? @ -No Was there de-escalation of care discussed even if they declined (Discuss DNR or withdrawal of care, Hospice)? DNR status @ -No What co-morbidities impacted this encounter? (DM, HTN, Smoking, COPD, CAD, Cancer, CVA, ARF, Chemo, Hep., AIDS, mental health diagnosis, sleep apnea, morbid obesity)? @ -None Was patient admitted / discharged? Hospital course, mention meds given and route, prescriptions, significant lab abnormalities, going to OR and other pertinent info. @ -47-year-old female presents emergency room due to concerns of abnormal blood pressures however these blood pressure readings she presents with are within normal limits. She does report some dizziness but advises that as her readings are normal and she is drinking fluids well that she does not wish to remain in the hospital for any further testing or medication administration. Return parameters to the emergency room discussed will cancel orthostatics and IV fluid bolus ordered. Will discharge home in stable condition with education regarding normal blood pressure parameters advising continued monitoring of with dizziness and follow- up with surgeon as scheduled. Undiagnosed new problem with uncertain prognosis? @ -No Drug Therapy requiring intensive monitoring for toxicity (Heparin, Nitro, Insulin, Cardizem)? @ -No Were any procedures done? @ -No Diagnosis/symptom? @ -Dizziness Acute, or Chronic, or Acute on Chronic? @ -Acute Uncomplicated (without systemic symptoms) or Complicated (systemic symptoms)? @ -Uncomplicated Side effects of treatment? @ -No Exacerbation, Progression, or Severe Exacerbation? @ -No Poses a threat to life or bodily function? How? (Chest pain, USA, ID, pneumonia, PE, COPD, DKA, ARF, appy, cholecystitis, CVA, Diverticulitis, Homicidal, Suicidal, threat to staff... and all critical care pts) @ -No Case discussed with Dr. Torres Disposition Clinical Impression: Dizziness Disposition: HOME SELF-CARE Condition: Stable Instructions (If sedation given, give patient instructions): Dizziness (ED) Additional Instructions: Please stay well hydrated. Follow-up with your surgeon as scheduled. Continue to monitor blood pressure. Please return to the Emergency Department if symptoms worsen or any other concerns. Is patient prescribed a controlled substance at d/c from ED?: No Referrals: Pieter,Ayah, FNPBC [Primary Care Provider] - 1-2 days Time of Disposition: 12:03
[2022-12-31 12:17] VITALS: BP 110/59; PULSE 68
== END 2022-12-31 12:17 | disposition home or self-care (01) ==
LOC: EC 11:34
DX: R42 Dizziness and giddiness (principal); J45.909 Unspecified asthma, uncomplicated; Z79.51 Long term (current) use of inhaled steroids; Z91.09 Other allergy status, other than to drugs and biological substances
CPT/HCPCS: 99283

== ENCOUNTER → 2023-01-02 | Outpatient (CLI) | payer OTHER ==
[2023-01-02 13:23] VITALS: BP 104/68; PULSE 59; TEMP 98.2; BMI 37.3
== END ==
LOC: BARWHC3 12:49
PROVIDERS: ATTEND Surgery Plastic and Reconstructive Surgery
DX: E66.01 Morbid (severe) obesity due to excess calories (principal); Z71.3 Dietary counseling and surveillance; Z68.37 Body mass index [BMI] 37.0-37.9, adult; Z91.048 Other nonmedicinal substance allergy status; Z88.5 Allergy status to narcotic agent
CPT/HCPCS: 97803; G0463; 99211

== ENCOUNTER → 2023-02-20 | Outpatient (CLI) | payer OTHER ==
[2023-02-20 15:54] VITALS: BP 124/81; PULSE 93; TEMP 98; BMI 37.1
--- NOTE | 2023-02-20 16:34 | P.BASOAP ---
Subjective Progress Note Date: 02/20/23 She reports recurrent reflux despite all attempts to control symptoms including high dose PPIs and hiatal hernia repair. She was symptom free for 3 weeks and now has reflux to the nose. Needs barium swallow for imaging. Re-consider for gastric bypass. Needs esophagram. Plan for submission after 90 days, Mar 29. Objective - Vital Signs Vital signs: Vital Signs Temp 98.0 F 02/20/23 15:41 Pulse 93 02/20/23 15:41 Resp BP 124/81 02/20/23 15:41 Pulse Ox FiO2 Intake & Output 02/19/23 02/20/23 02/20/23 18:59 06:59 18:59 Weight 84.822 kg Assessment/Plan Plan: Date: 02/20/23 Initial Weight: 101.151 kg Initial BMI: 44.2 Current Weight: 84.822 kg Current BMI: 37.1 Type of Surgery: Total Volume in Band: Previous Volume: Volume Removed: Volume Added: Band Size:
== END ==
LOC: BARWHC3 15:01
PROVIDERS: ATTEND Surgery Plastic and Reconstructive Surgery
DX: Z53.9 Procedure and treatment not carried out, unspecified reason (principal)
CPT/HCPCS: 99211

== ENCOUNTER → 2023-03-08 | Outpatient (CLI) | payer OTHER ==
--- NOTE | 2023-03-08 10:28 | FL ---
EXAMINATION TYPE: FL barium swallow DATE OF EXAM: 03/08/2023 10:20 AM COMPARISON: Esophagram 12/28/2022, 07/09/2022 CLINICAL INDICATION:Female, 47 years old with history of R13.10 Dysphagia; PHH, TECHNIQUE: The procedure was explained and patient history elicited. All patient questions were ans wered prior to start of procedure. Multiple spot fluoroscopic images of the esophagus were obtained a fter the oral ingestion of effervescent crystals and liquid barium as the contrast agent. Fluoroscopic time: 19 seconds Fluoroscopic images: 138 Total DAP: 1850.90 Gym2 FINDINGS: The esophagus demonstrates normal primary and secondary peristalsis. Postsurgical changes from gastr ic sleeve and Tosin fundoplication. The esophageal mucosa is smooth without evidence of focal strict ure, ulceration, or abnormal outpouching. Spontaneous and elicited gastroesophageal reflux was identi fied to the level of the midesophagus. No hiatal hernia identified. IMPRESSION: 1. Spontaneous and elicited gastroesophageal reflux to the level of the midesophagus. 2. Postsurgical changes from gastric sleeve and Tosin fundoplication. No evidence for recurrent hia maria ines hernia.
== END | disposition home or self-care (01) ==
LOC: RADUSWWP 09:40
PROVIDERS: ATTEND Surgery Plastic and Reconstructive Surgery
DX: K21.9 Gastro-esophageal reflux disease without esophagitis (principal); R13.10 Dysphagia, unspecified
CPT/HCPCS: 74220

== ENCOUNTER 2023-04-12 10:31 | Emergency (ER) | payer OTHER ==
--- NOTE | 2023-04-12 11:06 | ED ---
ENT HPI - General Chief complaint: ENT Stated complaint: neck/head right side Time Seen by Provider: 04/12/23 10:45 Source: patient, RN notes reviewed Mode of arrival: ambulatory Limitations: no limitations - History of Present Illness Initial comments: Patient is a 47-year-old female presented ER with a chief complaint of right sided neck and ear pain. Patient states she was treated for an ear infection about a week ago with amoxicillin. Her last dose was 2 days ago. Patient states she's been having increasing pain now traveling down her neck and behind her ear. Patient also reports a bump on the right side of her head. Patient denies any fevers but endorses chills. She does not state any hearing difficulties. Patient denies any chest pain or shortness of breath. - Related Data Home Medications Medication Instructions Recorded Confirmed Beclomethasone Dipropionate [Qvar 2 puff INHALATION RT-BID PRN 10/12/20 02/20/23 80mcg Redihaler] HYDROcodone/APAP 10-325MG [[place] 1 tab PO QID PRN 05/03/21 02/20/23 10-325] Previous Rx's Medication Instructions Recorded Acetaminophen Tab [Tylenol Tab] 1,000 mg PO Q6HR PRN #30 tablet 12/29/22 Ibuprofen [Motrin] 600 mg PO Q8HR PRN #30 tab 12/29/22 Omeprazole [PriLOSEC] 40 mg PO DAILY #30 cap 12/29/22 Ondansetron Odt [Zofran Odt] 4 mg PO Q8HR PRN #9 tab 12/29/22 Simethicone 40 mg/0.6 ml Drops 40 mg PO PCHS PRN #30 ml 12/29/22 [Mylicon Drops] bisacodyL [Dulcolax] 5 mg PO DAILY PRN #10 tab 12/29/22 Hyoscyamine Elixir [Levsin 0.125 mg PO Q4-6H PRN #10 ml 12/30/22 0.125MG/ML Drops] Hyoscyamine Oral Drops [Levsin 0.125 mg PO Q4HR ml 12/30/22 Drops] Amoxic-Pot Clav 875-125Mg 1 tab PO Q12HR 5 Days #10 tab 04/12/23 [Augmentin 875-125] Allergies Allergy/AdvReac Type Severity Reaction Status Date / Time adhesive Allergy Rash/Hives Verified 04/12/23 10:42 tramadol Allergy Nausea & Verified 04/12/23 10:42 Vomiting & Diarrhea Review of Systems ROS Statement: Those systems with pertinent positive or pertinent negative responses have been documented in the HPI. ROS Other: All systems not noted in ROS Statement are negative. Past Medical History Past Medical History: Asthma, Fibromyalgia, GERD/Reflux, Osteoarthritis (OA), P ulmonary Embolus (PE), Sleep Apnea/CPAP/BIPAP Additional Past Medical History / Comment(s): Hiatal hernia, KRISHNA without device, History of Any Multi-Drug Resistant Organisms: None Reported Past Surgical History: Bariatric Surgery, Cholecystectomy, Hernia Repair, Joint Replacement, Orthopedic Surgery, Tubal Ligation Additional Past Surgical History / Comment(s): bilateral knee replacements 2016,2019. sleeve gastrectomy 11-13-21 Past Anesthesia/Blood Transfusion Reactions: No Reported Reaction Additional Past Anesthesia/Blood Transfusion Reaction / Comment(s): No blood transfusion Past Psychological History: Depression Smoking Status: Never smoker Past Alcohol Use History: None Reported Past Drug Use History: None Reported - Past Family History Mother Family Medical History: No Reported History General Exam Limitations: no limitations General appearance: alert, in no apparent distress Head exam: Present: other (2 cm fluctuant bump on right superior parietal skull. No erythema or rashes noted.) Eye exam: Present: normal appearance, PERRL, EOMI. Absent: scleral icterus, conjunctival injection, periorbital swelling Pupils: Present: normal accommodation ENT exam: Present: normal exam, normal oropharynx, mucous membranes moist, TM's normal bilaterally (Left is within normal limits. Right tympanic membrane is echols with surrounding erythema.), normal external ear exam (Right is erythematous) Neck exam: Present: tenderness (Right neck there is a soft bump noted), other Respiratory exam: Present: normal lung sounds bilaterally. Absent: respiratory distress, wheezes, rales, rhonchi, stridor Cardiovascular Exam: Present: regular rate, normal rhythm, normal heart sounds. Absent: systolic murmur, diastolic murmur, rubs, gallop, clicks Neurological exam: Present: alert, oriented X3, CN II-XII intact Psychiatric exam: Present: normal affect, normal mood Skin exam: Present: warm, dry, intact, normal color. Absent: rash Course Vital Signs 12/15/23 12/15/23 10:39 14:35 Temperature 97.8 F 98.2 F Pulse Rate 92 61 Respiratory 18 16 Rate Blood Pressure 121/64 122/78 O2 Sat by Pulse 99 100 Oximetry Medical Decision Making - Medical Decision Making Was pt. sent in by a medical professional or institution (BERYL Lambert, ESTIMATOR JEWELRY, urgent care, hospital, or [facility]...) When possible be specific @ -No Did you speak to anyone other than the patient for history (EMS, parent, family, police, friend...)? What history was obtained from this source @ -No Did you review nursing and triage notes (agree or disagree)? Why? @ -I reviewed and agree with nursing and triage notes Were old charts reviewed (outside hosp., previous admission, EMS record, old EKG, old radiological studies, urgent care reports/EKG's, [facility] records)? Report findings @ -No old charts were reviewed Differential Diagnosis (chest pain, altered mental status, abdominal pain women, abdominal pain men, vaginal bleeding, weakness, fever, dyspnea, syncope, headache, dizziness, GI bleed, back pain, seizure, CVA, palpatations, mental health, musculoskeletal)? @ -[Differential Headache: Migraine, tension, cluster, carbon monoxide, central venous thrombosis, pension karma temporal arteritis, acute closure glaucoma, intercranial hemorrhage, mastoiditis, sinusitis, head injury, this is not meant to be an all-inclusive list. EKG interpreted by me (3pts min.). @ -None X-rays interpreted by me (1pt min.). @ -None done CT interpreted by me (1pt min.). @ -CT IAC with contrast shows a small amount of cerumen in the right extra auditory canal. Minimal linear debris in the left external auditory canal. CT is otherwise unremarkable. U/S interpreted by me (1pt. min.). @ -None done What testing was considered but not performed or refused? (CT, X-rays, U/S, labs)? Why? @ -None What meds were considered but not given or refused? Why? @ -None Did you discuss the management of the patient with other professionals (professionals i.e. BERYL Lambert, ESTIMATOR JEWELRY, lab, RT, psych nurse, dialysis social worker, activities counselor, teacher, protection officer, immigration case worker)? Give summary @ -No Was smoking cessation discussed for >3mins.? @ -No Was critical care preformed (if so, how long)? @ -No Were there social determinants of health that impacted care today? How? (Mally elessness, low income, unemployed, alcoholism, drug addiction, transportation, low edu. Level, literacy, decrease access to med. care, usp, rehab)? @ -No Was there de-escalation of care discussed even if they declined (Discuss DNR or withdrawal of care, Hospice)? DNR status @ -No What co-morbidities impacted this encounter? (DM, HTN, Smoking, COPD, CAD, Cancer, CVA, ARF, Chemo, Hep., AIDS, mental health diagnosis, sleep apnea, morbid obesity)? @ -None Was patient admitted / discharged? Hospital course, mention meds given and route, prescriptions, significant lab abnormalities, going to OR and other pertinent info. @ -Discharge. Patient is a 47-year-old female presented ER with a chief complaint of right- sided ear pain. On examination, patient's vitals are stable. Physical exam was significant for tenderness to mastoid process right neck, right parietal lobe. Patient did have a fluctuant area of the parietal lobe. No erythema, ecchymosis or rashes noted. No signs of stridor, difficulty breathing, difficulty handling secretions. Labs obtained in the ER were unremarkable. CT IAC with contrast shows a small amount of cerumen in the right extra auditory canal. Minimal linear debris in the left external auditory canal. CT is otherwise unremarkable. Patient refused pain medication. Patient will be prescribed Augmentin at discharge. I discussed with patient laboratory results. I advised patient to follow-up with ENT. I educated patient to finish full course of antibiotics. Patient will be discharged in stable condition with follow-up to PCP. Patient expressed understanding and agreement with care plan. Undiagnosed new problem with uncertain prognosis? @ -No Drug Therapy requiring intensive monitoring for toxicity (Heparin, Nitro, Insulin, Cardizem)? @ -No Were any procedures done? @ -No Diagnosis/symptom? @ -Otitis media Acute, or Chronic, or Acute on Chronic? @ -Acute Uncomplicated (without systemic symptoms) or Complicated (systemic symptoms)? @ -Uncomplicated Side effects of treatment? @ -No Exacerbation, Progression, or Severe Exacerbation? @ -No Poses a threat to life or bodily function? How? (Chest pain, USA, [place], pneumonia, PE, COPD, DKA, ARF, appy, cholecystitis, CVA, Diverticulitis, Homicidal, Suicidal, threat to staff... and all critical care pts) @ -No - Lab Data Result diagrams: 04/12/23 11:14 04/12/23 11:14 Lab Results 04/12/23 04/12/23 04/12/23 Range/Units 11:14 11:14 11:14 WBC 4.8 (3.8-10.6) k/uL RBC 3.75 L (3.80-5.40) m/uL Hgb 10.9 L (11.4-16.0) gm/dL Hct 33.3 L (34.0-46.0) % MCV 88.8 (80.0-100.0) fL MCH 29.2 (25.0-35.0) pg MCHC 32.8 (31.0-37.0) g/dL RDW 14.0 (11.5-15.5) % Plt Count 220 (150-450) k/uL MPV 8.7 Sodium 138 (137-145) mmol/L Potassium 3.8 (3.5-5.1) mmol/L Chloride 105 (98-107) mmol/L Carbon Dioxide 25 (22-30) mmol/L Anion Gap 8 mmol/L BUN 12 (7-17) mg/dL Creatinine 0.57 (0.52-1.04) mg/dL Est GFR (CKD-EPI)AfAm >90 (>60 ml/min/1.73 sqM) Est GFR (CKD-EPI)NonAf >90 (>60 ml/min/1.73 sqM) Glucose 94 (74-99) mg/dL Plasma Lactic Acid Enrique 1.3 (0.7-2.0) mmol/L Calcium 8.8 (8.4-10.2) mg/dL Total Bilirubin 0.4 (0.2-1.3) mg/dL AST 23 (14-36) U/L ALT 16 (4-34) U/L Alkaline Phosphatase 71 (38-126) U/L Total Protein 6.7 (6.3-8.2) g/dL Albumin 3.7 (3.5-5.0) g/dL - Radiology Data Radiology results: report reviewed, image reviewed Disposition Clinical Impression: Otitis media Disposition: HOME SELF-CARE Condition: Stable Additional Instructions: Please return to the Emergency Department if symptoms worsen or any other concerns. Please complete full course of antibiotics. Follow-up with ENT if symptoms persist. Prescriptions: Amoxic-Pot Clav 875-125Mg [Augmentin 875-125] 1 tab PO Q12HR 5 Days #10 tab Is patient prescribed a controlled substance at d/c from ED?: No Referrals: Ayah Stapleton FNPBC [Family Provider] - 1-2 days García Weir DO [Doctor of Osteopathic Medicine] - 1-2 days Time of Disposition: 14:11
[2023-04-12 11:43] LABS: HCT 33.3 % (34.0-46.0); HGB 10.9 gm/dL (11.4-16.0); MCH 29.2 pg (25.0-35.0); MCHC 32.8 g/dL (31.0-37.0); MCV 88.8 fL (80.0-100.0); Mean Platelet Volume 8.7; Platelet Count 220 k/uL (150-450); RBC 3.75 m/uL (3.80-5.40); WBC 4.8 k/uL (3.8-10.6)
[2023-04-12 11:51] LABS: ALT 16 U/L (4-34); AST 23 U/L (14-36); African American GFR (CKD) >90 (>60 ml/min/1.73 sqM); Albumin 3.7 g/dL (3.5-5.0); Alkaline Phosphatase 71 U/L (38-126); Anion Gap 8 mmol/L; Blood Urea Nitrogen 12 mg/dL (7-17); Calcium 8.8 mg/dL (8.4-10.2); Carbon Dioxide 25 mmol/L (22-30); Chloride 105 mmol/L (98-107); Glucose 94 mg/dL (74-99); Non-African American GFR(CKD) >90 (>60 ml/min/1.73 sqM); Potassium 3.8 mmol/L (3.5-5.1); Sodium 138 mmol/L (137-145); Total Bilirubin 0.4 mg/dL (0.2-1.3); Total Protein 6.7 g/dL (6.3-8.2)
--- NOTE | 2023-04-12 12:16 | CT ---
EXAMINATION TYPE: CT iac w con DATE OF EXAM: 04/12/2023 COMPARISON: None HISTORY: 47-year-old female Pain CT DLP: 282.9 mGycm Automated exposure control for dose reduction was used. TECHNIQUE: Contiguous high-resolution axial scanning of the temporal bones performed with IV Contras t, patient injected with 100 ml mL of Isovue 300. Coronal reformatted images obtained. FINDINGS: There is no abnormality of visualized intracranial structures but thin cut postcontrast technique. Small amount of cerumen within the right external auditory canal. Minimal linear debris on the left. Otherwise external auditory canals unremarkable. Middle ear cavities and mastoid air cells appear clear. There is no abnormality of middle ear ossicles. The round and oval windows are normal. There is no abnormality of bony labyrinths. The vestibular and cochlear aqueducts are well visualized. The facial nerve canal is normal bilaterally. The internal auditory canal and meati are symmetrical bilaterally. There is no evidence of fractures. Visualized paranasal sinuses appear clear. Reformatted images confirm above findings. IMPRESSION: Small amount of cerumen in the right external auditory canal. Minimal linear debris in the left exter nal auditory canal. Otherwise, unremarkable temporal bone CT.
[2023-04-12] MEDS ORDERED: KETOROLAC 15 MG/ML 1 ML VIAL IVP STA (14:07)
[2023-04-12 14:47] VITALS: BP 122/78; PULSE 61; RESP 16; TEMP 98.2
== END 2023-04-12 14:36 | disposition home or self-care (01) ==
LOC: EC 10:31
DX: H66.91 Otitis media, unspecified, right ear (principal); J45.909 Unspecified asthma, uncomplicated; Z79.51 Long term (current) use of inhaled steroids; Z88.5 Allergy status to narcotic agent; Z91.09 Other allergy status, other than to drugs and biological substances; Z90.49 Acquired absence of other specified parts of digestive tract
CPT/HCPCS: 36415; 80053; 83605; 85027; 70481; 99284; 96374; J1885; Q9967

== ENCOUNTER → 2023-06-12 | Outpatient (CLI) | payer OTHER ==
[2023-06-12 17:33] LABS: INR 0.9 (<1.2); Partial Thromboplastin Time 25.4 sec (22.0-30.0); Prothrombin Time 10.3 sec (10.0-12.5)
[2023-06-13 03:45] LABS: HCT 35.6 % (37.2-46.3); HGB 11.3 g/dL (12.0-15.0); MCH 28.7 pg (27.0-32.0); MCHC 31.7 g/dL (32.0-37.0); MCV 90.4 FL (80.0-97.0); Mean Platelet Volume 12.1 FL (9.5-12.2); NRBC Per 100 WBC 0 X 10*3/uL (0.00-0.01); Platelet Count 260 X 10*3/uL (140-440); RBC 3.94 X 10*6/uL (4.10-5.20); RDW 13.1 % (11.5-14.5); WBC 6.51 X 10*3/uL (4.50-10.00)
[2023-06-13 03:55] LABS: Prealbumin 20.6 mg/dL (18.0-42.0)
[2023-06-13 04:19] LABS: % Iron Saturation 8.56 (12.00-45.00); BUN/Creat Ratio 17.17 Ratio (12.00-20.00); Blood Urea Nitrogen 10.3 mg/dL (9.0-27.0); Chol/HDL Ratio 2.94 Ratio; Glucose 85 mg/dL (70-110); Iron 38 UG/DL (50-170); LDL Cholesterol,Calculated 88.2 mg/dL (0.0-131.0); Magnesium 2.5 mg/dL (1.5-2.4); Phosphorus 3.2 mg/dL (2.4-5.1); Total Iron Binding Capacity 444 UG/DL (228-460); VLDL Calculation 19.38 mg/dL (5.00-40.00)
[2023-06-13 04:20] LABS: ALT 17 U/L (8-44); AST 19 U/L (13-35); Albumin 4.5 g/dL (3.8-4.9); Albumin/Globulin Ratio 1.36 Ratio (1.60-3.17); Alkaline Phosphatase 88 U/L (41-126); Calcium 9.4 mg/dL (8.7-10.3); Carbon Dioxide 24.8 mmol/L (21.6-31.8); Chloride 102 mmol/L (96-109); Ferritin 19.9 ng/mL (10.0-291.0); Globulin 3.3 g/dL (1.6-3.3); Potassium 4.4 mmol/L (3.5-5.5); Sodium 139 mmol/L (135-145); Total Bilirubin 0.4 mg/dL (0.3-1.2); Total Protein 7.8 g/dL (6.2-8.2)
[2023-06-13 12:53] LABS: Zinc, Serum 70 ug/dL (60-130)
[2023-06-14 06:11] LABS: Vitamin A 46 ug/dL (38-106)
== END | disposition home or self-care (01) ==
LOC: LABWHC1 16:19
PROVIDERS: ATTEND Surgery Plastic and Reconstructive Surgery
DX: E66.01 Morbid (severe) obesity due to excess calories (principal); E89.1 Postprocedural hypoinsulinemia; K91.2 Postsurgical malabsorption, not elsewhere classified; D50.8 Other iron deficiency anemias; E44.0 Moderate protein-calorie malnutrition; E44.1 Mild protein-calorie malnutrition; E45 Retarded development following protein-calorie malnutrition; E46 Unspecified protein-calorie malnutrition; E55.9 Vitamin D deficiency, unspecified; K74.1 Hepatic sclerosis; N19 Unspecified kidney failure; T56.894A Toxic effect of other metals, undetermined, initial encounter; K50.90 Crohn's disease, unspecified, without complications
CPT/HCPCS: 36415; 80053; 80061; 82306; 82525; 82607; 82728; 82746; 83036; 83540; 83550; 83735; 83970; 84100; 84134; 84255; 84425; 84443; 84590; 84630; 85027; 85610; 85730

== ENCOUNTER → 2023-06-19 | Outpatient (CLI) | payer OTHER ==
--- NOTE | 2023-06-21 19:15 | MM ---
Reason for Exam: Screening (asymptomatic). Last mammogram was performed 1 year(s) and 1 month(s) ago. Patient History: Menarche at age 10. First Full-Term at age 17. Risk Values: Gwen 5 year model risk: 0.7%. NCI Lifetime model risk: 7.5%. Prior Study Comparison: 05/24/2022 Bilateral MG 3D screening mammo w/cad, [facility]. Tissue Density: The breast tissue is heterogeneously dense. This may lower the sensitivity of mammography. Findings: Analyzed By CAD. There is chronic bilateral nodularity. Calcification central outer aspect of the right cc view are increasing and further magnification views are recommended. Otherwise, no significant change. Overall Assessment: Incomplete: need additional imaging evaluation, BI-RAD 0 Management: Special View Mammogram of the right breast. Additional views to include mag CC, 3-D CC rolled, and 3-D ML views. [facility] will attempt to contact patient to return for supplemental views and ultrasound if indicated. Electronically signed and approved by: Blu Hicks M.D. Radiologist
== END | disposition home or self-care (01) ==
LOC: RADMAMWWP 10:54
PROVIDERS: ATTEND Family Medicine
DX: Z12.31 Encounter for screening mammogram for malignant neoplasm of breast (principal)
CPT/HCPCS: 77063; 77067

== ENCOUNTER → 2023-06-26 | Outpatient (CLI) | payer OTHER ==
--- NOTE | 2023-06-26 11:25 | MM ---
Reason for Exam: Additional evaluation requested from abnormal screening. Last screening mammogram was performed less than 1 month ago. Patient History: Menarche at age 10. First Full-Term at age 17. Premenopausal. Last menstrual period: 05/15/2023 Risk Values: Gwen 5 year model risk: 0.5%. NCI Lifetime model risk: 5.3%. Prior Study Comparison: 05/24/2022 Bilateral MG 3D screening mammo w/cad, [facility]. 06/19/2023 Bilateral MG 3D screening mammo w/cad, [facility]. Tissue Density: Right: The breast tissue is heterogeneously dense. This may lower the sensitivity of mammography. Findings: Analyzed By CAD. Pattern is stable. There are several calcifications present. The new calcifications magnification appear to be coarse benign calcifications. Additional scattered subsegmental calcifications are present. Short-term follow-up in 6 months is recommended. Overall Assessment: Probably benign, BI-RAD 3 Management: Diagnostic Mammogram of the right breast in 6 months. A negative mammogram report should not preclude additional follow up of suspicious palpable abnormalities. Patient should continue monthly self breast exam. A clinical breast exam by your physician is recommended on an annual basis and results should be correlated with mammographic findings. Electronically signed and approved by: Teja Richmond D.O. Radiologis
== END | disposition home or self-care (01) ==
LOC: RADMAMWWP 09:06
PROVIDERS: ATTEND Family Medicine
DX: R92.331 Mammographic heterogeneous density, right breast (principal)
CPT/HCPCS: 77065; G0279; 77061

== ENCOUNTER → 2023-08-07 | Outpatient (CLI) | payer OTHER ==
[2023-08-07 16:07] LABS: ALT 15 U/L (8-44); AST 20 U/L (13-35); Albumin 4.2 g/dL (3.8-4.9); Albumin/Globulin Ratio 1.45 Ratio (1.60-3.17); Alkaline Phosphatase 66 U/L (41-126); BUN/Creat Ratio 14.29 Ratio (12.00-20.00); Calcium 9.3 mg/dL (8.7-10.3); Carbon Dioxide 24.1 mmol/L (21.6-31.8); Chloride 103 mmol/L (96-109); Globulin 2.9 g/dL (1.6-3.3); Glucose 84 mg/dL (70-110); Potassium 3.8 mmol/L (3.5-5.5); Sodium 138 mmol/L (135-145); Total Bilirubin 0.3 mg/dL (0.3-1.2); Total Protein 7.1 g/dL (6.2-8.2)
[2023-08-07 16:23] LABS: Basophils # (A) 0.03 X 10*3/uL (0.00-0.10); Basophils % (A) 0.5 %; Eosinophils # (A) 0.03 X 10*3/uL (0.04-0.35); Eosinophils % (A) 0.5 %; HCT 36.8 % (37.2-46.3); HGB 11.8 g/dL (12.0-15.0); Lymphocytes # (A) 1.66 X 10*3/uL (0.90-5.00); Lymphocytes % (A) 26.5 %; MCH 29.2 pg (27.0-32.0); MCHC 32.1 g/dL (32.0-37.0); MCV 91.1 FL (80.0-97.0); Mean Platelet Volume 11.1 FL (9.5-12.2); Monocytes # (A) 0.31 X 10*3/uL (0.20-1.00); Monocytes % (A) 4.9 %; NRBC Per 100 WBC 0 X 10*3/uL (0.00-0.01); Neutrophils # (A) 4.23 X 10*3/uL (1.80-7.70); Neutrophils % (A) 67.4 %; Platelet Count 245 X 10*3/uL (140-440); RBC 4.04 X 10*6/uL (4.10-5.20); RDW 14.1 % (11.5-14.5); WBC 6.27 X 10*3/uL (4.50-10.00)
== END | disposition home or self-care (01) ==
LOC: LABPAT 10:35
PROVIDERS: ATTEND Surgery Plastic and Reconstructive Surgery
DX: Z01.812 Encounter for preprocedural laboratory examination (principal)
CPT/HCPCS: 36415; 80053; 85025; 86850; 86900; 86901

== ENCOUNTER 2023-08-12 09:41 | Inpatient (IN) | payer OTHER ==
--- NOTE | 2023-08-12 08:36 | P.GSHP ---
History of Present Illness H&P Date: 08/12/23 CHIEF COMPLAINT: Morbid obesity HISTORY OF PRESENT ILLNESS: Venessa Romo is a 47-year-old female who comes with lifelong morbid obesity. She had a sleeve gastrectomy however developed intractable gastroesophageal reflux disease. Despite medical management and hiatal hernia repair, her symptoms continued. She presents for conversion of sleeve to gastric bypass. At height of 4 feet 11.5 inches, her ideal body weight is 123 pounds. Highest weight is 225 pounds with body mass index 44.8. She comes in 177 pounds. Lifetime weight loss 48 pounds. Body mass index 35.2. She is 62 pounds overweight. PAST MEDICAL HISTORY: 1. Morbid obesity due to excess calories 2. Body mass index of 44.3, initial 3. Chronic obstructive pulmonary disease with asthma 4. Fibromyalgia 5. Obstructive sleep apnea 6. Osteoarthritis of the knees. 7. Gastroesophageal reflux disease. 8. Osteoarthritis lower back 9. Osteoarthritis of the hip 10. DVT PAST SURGICAL HISTORY: 1. Cholecystectomy 2. Tubal ligation 3. Bilateral knee replacement 4. Diaphragmatic hiatal hernia repair 5. Robotic sleeve gastrectomy HOME MEDICATIONS: Reviewed ALLERGIES: Reviewed SOCIAL HISTORY: Denies past tobacco use. FAMILY HISTORY: No family history of ulcerative colitis disease or Crohn's disease. Family history of morbid obesity. No lupus in the family. No reports of stomach or esophageal cancer. 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 REVIEW OF ORGAN SYSTEMS: CONSTITUTIONAL: At height of 4 feet 11.5 inches, her ideal body weight is 123 pounds. Highest weight is 225 pounds with body mass index 44.8. HEENT: Denies any active troubles with vision or hearing. ENDOCRINE: Denies diabetes. No hypothyroidism. CARDIOVASCULAR: Denies reports of palpitations or heart attacks or chest pain. Denies hypertensive heart disease. RESPIRATORY: Has daytime somnolence. Has asthma. Has chronic obstructive pulmonary disease. GASTROINTESTINAL: Denies any bright red blood per rectum. No diarrhea. No constipation. Has gastroesophageal reflux disease. GENITOURINARY: Denies bladder urgency. No recent blood in urine MUSCULOSKELETAL: Has lower back pain and joint pain. Has osteoarthritis of the knees. NEURO: No headaches. No seizure disorders. PSYCH: Denies depression. No suicidal ideation. RHEUMATOLOGIC: No lupus. No rheumatoid arthritis. HEMATOLOGIC: Denies any abnormal bleeding or bruising. Past history of DVTs. SKIN: No rash. No skin cancer. PHYSICAL EXAM: VITAL SIGNS: Height 4 foot 11.5 inches, weight 177 pounds. BMI 35.2 GENERAL: Well-developed in no acute distress. HEENT: No scleral icterus. Extraocular movements grossly intact. Hears convers ational speech. No nasal drainage. NECK: Supple without lymphadenopathy. CHEST: Nonlabored respirations with equal bilateral excursions. CARDIOVASCULAR: Regular rate and regular rhythm. Distal 2+ pulses. ABDOMEN: Obese, soft, nontender, nondistended. MUSCULOSKELETAL: No clubbing, cyanosis. NEURO: No focal or lateralizing signs. Cranial nerves 2 through 12 grossly within normal limits. PSYCH: Appropriate affect. Alert and oriented to person, place and time. SKIN: Good skin turgor. Well perfused. ASSESSMENT: 1. Morbid obesity due to excess calories 2. Body mass index of 44.3, initial 3. Chronic obstructive pulmonary disease with asthma 4. Fibromyalgia 5. Obstructive sleep apnea 6. Osteoarthritis of the knees 7. Gastroesophageal reflux disease. 8. Osteoarthritis lower back 9. Osteoarthritis of the hip 10. DVT 11. 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 Anemia 13. Iron deficiency anemia 14. Calcium deficiency 15. Vitamin A deficiency 16. Hyperparathyroidism 17. Gastritis PLAN: 1. Patient from sleeve gastrectomy to gastric bypass described due to intractable nausea and vomiting and gastroesophageal reflux disease despite conservative measures and hiatal hernia repair. 2. The [place] [facility] Data was also reviewed with benefits and risks as described. 3. An 8 page second-generation bariatric consent form was reviewed in detail including potential of bleeding, infection, leaks, adequate weight loss, nutritional deficiencies which the patient demonstrated understanding of the risks. 4. A 2 week high-protein low caloric 800 kcal diet described to address hepatomegaly. 5. Preoperative labs including complete metabolic panel and CBC with type and screen recommended. 6. DVT prophylaxis per [place] [facility]. 7. Antibiotic prophylaxis. 8. Inpatient hospitalization anticipated for more than 2 nights. 9. All questions and concerns were addressed with the patient. 10. She is at elevated risk for perioperative complications due to conversion including risk of strictures and ulcers 11. Overall, patient has expressed understanding of bariatric care including postoperative diet and commitment of lifestyle. Patient should benefit from surgical intervention for correction of her morbid obesity. 12. On day of procedure, 5% weight loss goal weight 178 pounds described Past Medical History Past Medical History: Asthma, Fibromyalgia, GERD/Reflux, Osteoarthritis (OA), Pulmonary Embolus (PE), Sleep Apnea/CPAP/BIPAP Additional Past Medical History / Comment(s): Hiatal hernia, KRISHNA without device, History of Any Multi-Drug Resistant Organisms: None Reported Past Surgical History: Bariatric Surgery, Cholecystectomy, Hernia Repair, Joint Replacement, Orthopedic Surgery, Tubal Ligation Additional Past Surgical History / Comment(s): bilateral knee replacements 2016,2019. sleeve gastrectomy 11-13-21 Past Anesthesia/Blood Transfusion Reactions: No Reported Reaction Additional Past Anesthesia/Blood Transfusion Reaction / Comment(s): No blood transfusion Smoking Status: Never smoker - Past Family History Mother Family Medical History: No Reported History Medications and Allergies Home Medications Medication Instructions Recorded Confirmed Type Beclomethasone Dipropionate [Qvar 2 puff INHALATION RT-BID PRN 10/12/20 08/07/23 History 80mcg Redihaler] HYDROcodone/APAP 10-325MG [[place] 1 tab PO QID PRN 05/03/21 08/07/23 History 10-325] Omeprazole [PriLOSEC] 40 mg PO DAILY #30 cap 12/29/22 08/07/23 Rx Allergies Allergy/AdvReac Type Severity Reaction Status Date / Time adhesive Allergy Rash/Hives Verified 08/07/23 15:27 tramadol Allergy Nausea & Verified 08/07/23 15:27 Vomiting & Diarrhea
[~2023-08-12 09:41] MED LIST changes: -ACETAMINOPHEN TAB 500 MG TAB PO PRN; -CHLORHEXIDINE GLUCONATE 15 ML CUP MUCOUS MEM PRN; -DEXAMETHASONE SOD PHOSPHATE 4 MG/ML 1 ML VIAL IV ONE; -ENOXAPARIN 40 MG/0.4 ML SYRINGE SQ PRN; -GABAPENTIN 300 MG CAP PO PRN; +HYDROmorphone 0.5 MG/0.5 ML SYRINGE IVP PRN; -METOCLOPRAMIDE 5 MG/ML 2 ML VIAL IVP PRN; -ONDANSETRON 4 MG/2 ML VIAL IVP ONE; -PANTOPRAZOLE 40 MG/10 ML VIAL IVP PRN; -SCOPOLAMINE 1 MG/72 HR PATCH TRANSDERM ONE
[2023-08-12] MEDS: LACTATED RINGERS 1,000 ML IV SCH (10:46)
[2023-08-12] MEDS: DEXAMETHASONE SOD PHOSPHATE 4 MG/ML 1 ML VIAL IVP ONE (11:23)
[2023-08-12] MEDS: ONDANSETRON 4 MG/2 ML VIAL IVP PRN (11:23)
[2023-08-12] MEDS: PANTOPRAZOLE 40 MG/10 ML VIAL IVP STA (11:23)
[2023-08-12] MEDS: ALVIMOPAN 12 MG CAPSULE PO PRN (11:23)
[2023-08-12] MEDS: ACETAMINOPHEN TAB 500 MG TAB PO PRN (11:23)
[2023-08-12] MEDS: CHLORHEXIDINE GLUCONATE 15 ML CUP MUCOUS MEM STA (11:24)
[2023-08-12] MEDS: SCOPOLAMINE 1 MG/72 HR PATCH TRANSDERM STA (11:24)
[2023-08-12] MEDS: HEPARIN SODIUM,PORCINE 5,000 UNIT/ML 1 ML VIAL SQ PRN (11:26)
[2023-08-12] MEDS ORDERED: ONDANSETRON 4 MG/2 ML VIAL ONE (13:48)
[2023-08-12] MEDS ORDERED: fentaNYL (PF) 50 MCG/ML 2 ML AMP ONE (13:48)
[2023-08-12] MEDS ORDERED: LIDOCAINE 1% INJ 10MG/ML (20 ML MDV) ONE (13:48)
[2023-08-12] MEDS ORDERED: GLYCOPYRROLATE 0.2 MG/ML 2 ML VIAL ONE (13:48)
[2023-08-12] MEDS ORDERED: PROPOFOL 10 MG/ML 20 ML VIAL IV ONE (13:48)
[2023-08-12] MEDS ORDERED: ROCURONIUM 10 MG/ML (5 ML VIAL) IV ONE (13:48)
[2023-08-12] MEDS ORDERED: SUCCINYLCHOLINE CHLORIDE 200 MG/10 ML VIAL IV ONE (13:48)
[2023-08-12] MEDS ORDERED: NEOSTIGMINE 1 MG/ML 10 ML VIAL ONE (13:48)
[2023-08-12] MEDS ORDERED: MIDAZOLAM 2 MG/2 ML VIAL ONE (13:48)
[2023-08-12] MEDS: LIDOCAINE 1%-EPI 1:100,000 20 ML VIAL SQ ONE (14:18)
[2023-08-12] MEDS ORDERED: diphenhydrAMINE 50 MG/ML 1 ML VIAL IVP PRN (17:00)
[2023-08-12] MEDS ORDERED: NALOXONE 0.4 MG/ML 1 ML VIAL IV PRN ×2 (17:00→20:10)
[2023-08-12] MEDS ORDERED: FLUTICASONE 110 MCG INHALER INHALATION PRN (17:06)
--- NOTE | 2023-08-12 17:42 | P.OP ---
Date of Procedure: 08/12/23 Description of Procedure: SURGEON: AARON PUENTE MD PREOPERATIVE DIAGNOSES: 1. Morbid obesity due to excess calories 2. Body mass index of 44.3, initial 3. Chronic obstructive pulmonary disease with asthma 4. Fibromyalgia 5. Obstructive sleep apnea 6. Osteoarthritis of the knees 7. Gastroesophageal reflux disease. 8. Osteoarthritis lower back 9. Osteoarthritis of the hip 10. DVT 11. Speak surinamese and communicates with dater assembler 12. Anemia 13. Iron deficiency anemia 14. Calcium deficiency 15. Vitamin A deficiency 16. Hyperparathyroidism 17. Gastritis POSTOPERATIVE DIAGNOSES: 1. Morbid obesity due to excess calories 2. Body mass index of 44.3, initial 3. Chronic obstructive pulmonary disease with asthma 4. Fibromyalgia 5. Obstructive sleep apnea 6. Osteoarthritis of the knees 7. Gastroesophageal reflux disease. 8. Osteoarthritis lower back 9. Osteoarthritis of the hip 10. DVT 11. Speak surinamese and communicates with dater assembler 12. Anemia 13. Iron deficiency anemia 14. Calcium deficiency 15. Vitamin A deficiency 16. Hyperparathyroidism 17. Gastritis OPERATION: 1. Robotic assisted da Greg Xi laparoscopic conversion from sleeve gastrectomy to Gabriela-en-Y gastric bypass, 125 cm antecolic antegastric Gabriela limb, with 25 mm EEA. 2. Intraoperative esophagogastrojejunoscopy. ANESTHESIA: GETA and local ESTIMATED BLOOD LOSS: 10 mL SPECIMENS REMOVED: None. COMPLICATIONS: NONE. Operative Findings: 1. Biliopancreatic limb 60 cm 2. Bypass performed using 125 cm gabriela limb secondary to avoid increased tension at 150 cm. 3. Gonzalez defect and jejunojejunostomy defect closed using 2-0 V LOC, green 4. Leak test negative with gastrojejunal anastomosis patent and hemostatic. 5. Reinforcement sutures were placed along the gastrojejunal anastomosis at 12:00, 9:00 and 3:00 6. No evidence of hepatomegaly or fatty liver disease. INDICATIONS: Venessa Romo is a 47-year-old female who comes with lifelong morbid obesity. She had a sleeve gastrectomy however developed intractable gastroesophageal reflux disease. Despite medical management and hiatal hernia repair, her symptoms continued. She presents for conversion of sleeve to gastric bypass. At height of 4 feet 11.5 inches, her ideal body weight is 123 pounds. Highest weight is 225 pounds with body mass index 44.8. She comes in 177 pounds. Lifetime weight loss 48 pounds. Body mass index 35.2. She is 62 pounds overweight. A second-generation bariatric consent form was described in detail including the possibility of protein malnutrition, leaks, gastrojejunal stricture, venous thrombosis, need for further surgery for which she demonstrated understanding. She also understands that a conversion surgery from sleeve to gastric bypass is for symptomatic relief of her gastroesophageal reflux disease. Benefits and risks of the procedure were described at length. Informed consent was obtained. DESCRIPTION: The patient was brought into the operating room theater. She was placed supine. She had received heparin subcutaneously for DVT prophylaxis. After general induction, the abdomen was prepped and draped in standard sterile fashion. Ioban draping was placed along the abdomen. A robotic ideacts innovationsi Xi system was prepped and primed. Proposed trochars were placed along previous incisions from her hiatal hernia surgery, at least 12 cm inferior to the xiphoid process. Proposed port sites were marked with indelible marker along the anterior axillary line bilaterally, mid clavicular line bilaterally with each port marked 10 cm from each other. The robotic stapler port was marked for the right midclavicular line including along the left midclavicular line. A 5 mm 0 degrees laparoscopic trocar entry was performed along the left upper quadrant. The abdomen was insufflated to 15 mmHg pressure, which she tolerated well. Diagnostic laparoscopy demonstrated no injury to bowel, viscera, or mesentery. An 8 mm camera port was placed left lateral to the umbilicus at the epigastrium, 15 cm distal to the xiphoid. Next, 12-mm robot stapler port was placed along the right mid abdomen. An 12 mm port was exchanged along the left upper quadrant. An 8 mm port was placed on the left lateral abdominal wall under direct visualization Please note that the ports were placed 18 to 20 cm away from the target anatomy of the stomach. Care was taken to check that each robotic arm was safely away from collision with the bed or the patient. The patient was positioned in reverse Trendelenburg position at 25-degrees after lowering the bed. The robot was docked over the patient. Using grasper for arm 3, a grasper for arm 1, including vessel sealer for arm 4, the robotic system was docked and primed as described. Instruments were interchanged by the pharmacy technician assistant including endoscissors, the needle driver license examiner, and stapler. I had sat at the console. Next, the transverse mesocolon was reflected into the upper abdomen after dividing the mesentery and preparing for the jejunojejunostomy portion of the case. The ligament of Treitz was identified and measured 60 cm antegrade and marked using 3-0 Silk. The jejunum was divided at the 60 cm point using 60-mm white loads above the suture measurement. The biliopancreatic limb was held in place. The Gabriela limb was measured 100 cm in an antegrade fashion to avoid tension along the proposed gastrojejunal anastomosis. At 125 cm along the anti-mesenteric border of the Gabriela limb, a jejunojejunostomy was proposed whereby enterotomies were created along the biliopancreatic limb including the Gabriela limb using a Bovie cautery. A stay suture of 3-0 silk was placed to align and create the anastomosis. The enterotomies along the anti-mesenteric borders were created followed by unidirectional fire from the patient's right side using 60 mm blue loads Smart technology robotic stapler. The jejunojejunostomy was found to be hemostatic. The enterotomy was closed after horizontal mattress stitch of 3-0 silk used to elevate the enterotomy followed by closure with the robotic stapler blue load. The jejunal limb was temporarily tacked along the left upper quadrant. Attention was now brought to the creation of the gastrojejunostomy. Her previous sleeve gastrectomy was investigated and no moderate defects were found along the hiatus which was scarred from her hiatal hernia surgery. Along the lesser curvature of the stomach, dissection was made along the retrogastric space to allow first firing of the robotic staple. Green and blue loads of 60 mm staplers were used to divide the stomach to create the gastric pouch. The patient was then prepared for placement of a Orvil. The patient was Mallampati 1. A 25-mm Orvil was selected for placement by the nurse machine stuffer automatic. The Orvil tubing was placed anterior to the staple line of the gastric pouch and brought out through the left inferior lateral port. I re-scrubbed into the case. The robotic arms were temporarily undocked. The Orvil was navigated into the gastric pouch. The sutures were identified and divided. The tubing was from the 25 mm anvil. As the Orvil had been placed, the blind jejunal limb was brought proximally into the upper abdomen. No torsion was found upon the Gabriela limb. No tension was identified as the limb was brought along the upper abdomen. The blind jejunal limb was previously opened using endo-scissors with cautery. The 25-mm EEA stapler was brought through the left anterior lateral port site from the left side. The EEA stapler was brought through the open jejunal limb and its needle was deployed at the antimesenteric border where the anvil were mated for approximately 1 minute upon firing. The stapler was removed after irrigating the shaft of the instrument with warm normal saline. Donuts were found to be intact and on both sides. The da Greg Xi robot arms were then re-docked. I sat at the console. The open jejunal limb defect was closed using 60 mm blue loads after releasing any tension from the blind jejunal limb. Care was taken to avoid any long blind limb to avoid redundancy of the blind limb. Reinforcement sutures were placed along the gastrojejunal anastomosis and placed along the 12:00, 9:00 and 3 o'clock position using 3-0 Vicryl. The Florentino defect and jejunojejunostomy mesenteric defect were closed using 2-0 V LOC, green. I then went to the head of the bed to perform the esophagogastrojejunoscopy and a leak test. An Olympus gastroscope was passed along the posterior oropharynx which was unremarkable for any injury to the vocal cords. The scope was passed down to the proximal portion of the pouch, whereby no active bleeding was encountered. Excellent visualization of the gastrojejunostomy anastomosis, including the Gabriela limb was encountered with endoscopic image obtained. The anastomosis was found to be patent. The gastrointestinal tract was desufflated. No evidence of intraoperative leak was encountered as the gastric pouch and anastomosis were submerged under normal saline solution. The robot was then undocked. I then went back to the bedside of the patient, whereby with coordinated effort of the pharmacy technician assistant, irrigation was aspirated from the upper abdominal cavity. Tisseel was placed circumferentially over the anastomosis of the gastrojejunostomy. The fascial defect of the EEA stapler was closed using Benny Larsen and 0 Vicryl. All instruments and pneumoperitoneum were evacuated from the abdominal cavity. The port correlating with the EEA stapler device was cleansed with normal saline solution and hydrogen peroxide. The rest of incisions were reapproximated using 4-0 Monocryl in an interrupted subcuticular fashion. Local anesthetic was infiltrated along the skin for postop analgesia. Liquid glue was applied to the skin. OptiFoam dressing was placed along the EEA stapler site. At the end of the procedure, needle, sponge and instrument count had been verified correct by the assembler surgical garment. The patient had tolerated the procedure well and was extubated and taken to the postanesthesia unit in stable condition. Intraoperative findings were described to the patient's family who were very pleased with the level of care.
[2023-08-12] MEDS: droPERidol 5 MG/2 ML VIAL IVP ONE (17:47)
[2023-08-12] MEDS: ACETAMINOPHEN IV (For NPO) 1,000 MG in EMPTY BAG 1 BAG IVPB SCH (18:17)
[2023-08-12] MEDS: SIMETHICONE 80 MG CHEWABLE PO SCH (18:18)
[2023-08-12] MEDS: ONDANSETRON 4 MG/2 ML VIAL IVP SCH (18:18)
[2023-08-12] MEDS: HYDROcodone/APAP 10-325MG 1 EACH TAB PO PRN (19:58)
[2023-08-12] MEDS ORDERED: HYDROmorphone 1 MG/ML 1 ML SYRINGE IVP PRN (20:09)
[2023-08-12] MEDS: fentaNYL PCA 500 MCG/50 ML BAG IV SCH (21:18)
[2023-08-12] MEDS: 0.9% NACL WITH KCL 20 MEQ/L 1,000 ML IV SCH (21:20)
[2023-08-12] MEDS: ALBUTEROL NEBULIZED 2.5 MG/3 ML INHALATION SCH (21:58)
[2023-08-12] MEDS: PANTOPRAZOLE 40 MG/10 ML VIAL IV SCH (22:26)
[2023-08-12] MEDS: HEPARIN SODIUM,PORCINE 5,000 UNIT/ML 1 ML VIAL SQ SCH (22:27)
[2023-08-13 08:54] LABS: Basophils # (A) 0.02 X 10*3/uL (0.00-0.10); Basophils % (A) 0.1 %; Eosinophils # (A) 0 X 10*3/uL (0.04-0.35); Eosinophils % (A) 0 %; HGB 11.1 g/dL (12.0-15.0); Lymphocytes # (A) 1.03 X 10*3/uL (0.90-5.00); Lymphocytes % (A) 5.5 %; MCH 28.9 pg (27.0-32.0); MCHC 32.6 g/dL (32.0-37.0); MCV 88.5 FL (80.0-97.0); Monocytes # (A) 0.61 X 10*3/uL (0.20-1.00); Monocytes % (A) 3.2 %; NRBC Per 100 WBC 0 X 10*3/uL (0.00-0.01); Neutrophils # (A) 17.08 X 10*3/uL (1.80-7.70); Neutrophils % (A) 90.7 %; Platelet Count 206 X 10*3/uL (140-440); RBC 3.84 X 10*6/uL (4.10-5.20); RDW 13.9 % (11.5-14.5); WBC 18.83 X 10*3/uL (4.50-10.00)
[2023-08-13 09:00] LABS: Blood Urea Nitrogen 7.5 mg/dL (9.0-27.0); Calcium 8.5 mg/dL (8.7-10.3); Carbon Dioxide 21.3 mmol/L (21.6-31.8); Chloride 105 mmol/L (96-109); Magnesium 1.7 mg/dL (1.5-2.4); Phosphorus 2.8 mg/dL (2.4-5.1); Potassium 4.2 mmol/L (3.5-5.5); Sodium 136 mmol/L (135-145)
--- NOTE | 2023-08-13 10:34 | FL ---
SINGLE CONTRAST UPPER GI EXAMINATION: CLINICAL HISTORY: 47-year-old female postop bariatric surgery. Patient status post revision of previ ous gastric sleeve now to Nelly-en-Y gastric bypass. History of reflux. TECHNIQUE: Single contrast exam performed with 40 ml Isovue-370 contrast. Total fluoroscopy time: 52 seconds Total images: None. 24 DOSE AREA PRODUCT (DAP) UGY*M,MGY*CM: 325.5 FINDINGS: The patient swallowed oral contrast without difficulty or delay. Esophageal peristalsis and motility are within normal limits. There is prompt passage of contrast from the stomach across the GE juncti on into the proximal stomach and subsequent prompt passage of contrast across the gastrojejunostomy i nto proximal jejunal loops. There is no evidence of contrast extravasation to suggest leak. No postsu rgical free air seen. IMPRESSION: No evidence of leak or obstruction status post Nelly-en-Y gastric bypass.
[2023-08-13 11:45] VITALS: BMI 35.1
[2023-08-13] MEDS: 0.9% NACL WITH KCL 20 MEQ/L 1,000 ML IV SCH (13:12)
--- NOTE | 2023-08-13 14:16 | P.PN ---
Subjective Progress Note Date: 08/13/23 CHIEF COMPLAINT: Morbid obesity HISTORY OF PRESENT ILLNESS: Postop day #1 status post conversion of sleeve to Nelly-en-Y gastric bypass. Patient complains of abdominal pain. Still requiring CONTINUOUS MINING MACHINE COAL MINER pump. She has been up and ambulating. She did have to be straight cathed x 2 during the night. She was able to urinate once this afternoon. Denies any nausea or vomiting. Denies any dysphagia. Tolerating the bariatric clears. Upper GI shows no evidence of leak or obstruction. Afebrile. WBC 18 PHYSICAL EXAM: VITAL SIGNS: Reviewed GENERAL: Well-developed in no acute distress. HEENT: No sclera icterus. Extraocular movements grossly intact. Moist buccal mucosa. Head is atraumatic, normocephalic. Hears conversational speech. No nasal drainage. NECK: Supple without lymphadenopathy. CHEST: Non-labored respirations and equal bilateral excursions. CARDIOVASCULAR: Palpable 2+ radial pulses. ABDOMEN: Soft. Nondistended. Nontender. MUSCULOSKELETAL: No clubbing or cyanosis. NEUROLOGIC: No focal or lateralizing signs. Cranial nerves II through XII grossly intact. PSYCH: Appropriate affect. Alert and oriented to person, place and time. SKIN: Well perfused. Good skin turgor. ASSESSMENT: 1. Morbid obesity due to excess calories 2. Body mass index of 44.3, initial 3. Chronic obstructive pulmonary disease with asthma 4. Fibromyalgia 5. Obstructive sleep apnea 6. Osteoarthritis of the knees 7. Gastroesophageal reflux disease. 8. Osteoarthritis lower back 9. Osteoarthritis of the hip 10. DVT 11. Speak welsh and communicates with college physics instructor 12. Anemia 13. Iron deficiency anemia 14. Calcium deficiency 15. Vitamin A deficiency 16. Hyperparathyroidism 17. Gastritis 18. Urinary retention PLAN: -Continue bariatric clear liquids -Continue pain management -Continue IV fluids -Encourage patient to ambulate -continue to monitor for urinary retention -Encourage patient to use incentive spirometer -Repeat CBC in a.m. for leukocytosis GI prophylaxis Protonix and DVT prophylaxis subcu heparin Physician Vacuum Cleaner Assembler note has been reviewed by physician. Signing provider agrees with the documented findings, assessment, and plan of care. Objective - Vital Signs Vital signs: Vital Signs Temp 98.0 F 08/13/23 12:56 Pulse 78 08/13/23 12:56 Resp 20 08/13/23 12:56 BP 109/70 08/13/23 12:56 Pulse Ox 100 08/13/23 12:56 FiO2 Intake & Output 08/12/23 08/13/23 08/13/23 18:59 06:59 18:59 Intake Total 700 Output Total 10 1600 Balance 690 -1600 Weight 81.5 kg 81.5 kg Intake: IV 700 Output: Urine 1600 Straight 1600 Estimated Blood Loss 10 Other: # Voids 1 - Labs CBC & Chem 7: 08/13/23 05:09 08/13/23 05:09 Labs: Abnormal Lab Results - Last 24 Hours (Table) 08/13/23 08/13/23 Range/Units 05:09 05:09 WBC 18.83 H (4.50-10.00) X 10*3/uL RBC 3.84 L (4.10-5.20) X 10*6/uL Hgb 11.1 L (12.0-15.0) g/dL Hct 34.0 L (37.2-46.3) % Immature Gran # 0.09 H (0.00-0.04) X 10*3/uL Neutrophils # 17.08 H (1.80-7.70) X 10*3/uL Eosinophils # 0 L (0.04-0.35) X 10*3/uL Carbon Dioxide 21.3 L (21.6-31.8) mmol/L BUN 7.5 L (9.0-27.0) mg/dL Calcium 8.5 L (8.7-10.3) mg/dL
[2023-08-14] MEDS ORDERED: bisacodyL 5 MG TABLET.DR PO PRN (08:00)
[2023-08-14 08:55] LABS: Basophils # (A) 0.02 X 10*3/uL (0.00-0.10); Basophils % (A) 0.2 %; Eosinophils # (A) 0.06 X 10*3/uL (0.04-0.35); Eosinophils % (A) 0.6 %; Lymphocytes # (A) 1.36 X 10*3/uL (0.90-5.00); MCH 29.3 pg (27.0-32.0); MCHC 32.3 g/dL (32.0-37.0); MCV 90.9 FL (80.0-97.0); Mean Platelet Volume 11.8 FL (9.5-12.2); Monocytes # (A) 0.43 X 10*3/uL (0.20-1.00); Monocytes % (A) 4.1 %; NRBC Per 100 WBC 0 X 10*3/uL (0.00-0.01); Neutrophils # (A) 8.53 X 10*3/uL (1.80-7.70); Neutrophils % (A) 81.8 %; Platelet Count 176 X 10*3/uL (140-440); RBC 3.41 X 10*6/uL (4.10-5.20); RDW 14.4 % (11.5-14.5); WBC 10.43 X 10*3/uL (4.50-10.00)
[2023-08-14] MEDS: TAMSULOSIN 0.4 MG CAP.ER.24H PO SCH (11:30)
--- NOTE | 2023-08-14 14:18 | P.PN ---
Subjective Progress Note Date: 08/14/23 CHIEF COMPLAINT: Morbid obesity HISTORY OF PRESENT ILLNESS: Postop day #2 status post conversion of sleeve to Nelly-en-Y gastric bypass. Patient still requiring the HAND BRIM IRONER pump for her abdominal pain. She also had issues with urinary retention and Rincon catheter was inserted. She is having flatus. She has tolerated her liquids. Afebrile. WBC is down from 18-10.43 hemoglobin is 10 PHYSICAL EXAM: VITAL SIGNS: Reviewed GENERAL: Well-developed in no acute distress. HEENT: No sclera icterus. Extraocular movements grossly intact. Moist buccal mucosa. Head is atraumatic, normocephalic. Hears conversational speech. No nasal drainage. NECK: Supple without lymphadenopathy. CHEST: Non-labored respirations and equal bilateral excursions. CARDIOVASCULAR: Palpable 2+ radial pulses. ABDOMEN: Soft. Nondistended. Nontender. MUSCULOSKELETAL: No clubbing or cyanosis. NEUROLOGIC: No focal or lateralizing signs. Cranial nerves II through XII grossly intact. PSYCH: Appropriate affect. Alert and oriented to person, place and time. SKIN: Well perfused. Good skin turgor. ASSESSMENT: 1. Morbid obesity due to excess calories 2. Body mass index of 44.3, initial 3. Chronic obstructive pulmonary disease with asthma 4. Fibromyalgia 5. Obstructive sleep apnea 6. Osteoarthritis of the knees 7. Gastroesophageal reflux disease. 8. Osteoarthritis lower back 9. Osteoarthritis of the hip 10. DVT 11. Speak cymraes and communicates with insurance office supervisor 12. Anemia 13. Iron deficiency anemia 14. Calcium deficiency 15. Vitamin A deficiency 16. Hyperparathyroidism 17. Gastritis 18. Urinary retention PLAN: -Consult urology for urinary retention. Continue Rincon catheter. Flomax has been added -Continue bariatric clear liquids -Continue pain management and resume IV Tylenol -Continue IV fluids -Encourage patient to ambulate -continue to monitor for urinary retention -Encourage patient to use incentive spirometer -Repeat CBC in a.m. for leukocytosis GI prophylaxis Protonix and DVT prophylaxis subcu heparin Physician Fiction And Nonfiction Writer Prose note has been reviewed by physician. Signing provider agrees with the documented findings, assessment, and plan of care. Objective - Vital Signs Vital signs: Vital Signs Temp 98.9 F 08/14/23 07:05 Pulse 78 08/14/23 08:42 Resp 16 08/14/23 07:05 BP 110/65 08/14/23 07:05 Pulse Ox 96 04/17/24 08:34 FiO2 Intake & Output 08/13/23 08/14/23 08/14/23 18:59 06:59 18:59 Intake Total 1300 Output Total 3199 1400 1200 Balance -1899 -1400 -1200 Weight 81.5 kg Intake: Intake, IV Titration 800 Amount 0.9% NaCl with KCl 20 Meq 700 /l 1,000 ml @ 100 mls/hr IV .Q10H ENDY Rx#: [id number] ACETAMINOPHEN IV (For NPO 100 ) 1,000 mg In Empty Bag 1 bag @ 400 mls/hr IVPB Q6HR ENDY Rx#:[id number] Oral 500 Output: Urine 2200 1400 1200 Uretheral (Rincon) 1000 1400 1200 Post Void Residual 999 Other: Voiding Method Indwelling Catheter Indwelling Catheter # Voids 1 - Labs CBC & Chem 7: 08/14/23 05:42 08/13/23 05:09 Labs: Abnormal Lab Results - Last 24 Hours (Table) 08/14/23 Range/Units 05:42 WBC 10.43 H (4.50-10.00) X 10*3/uL RBC 3.41 L (4.10-5.20) X 10*6/uL Hgb 10.0 L (12.0-15.0) g/dL Hct 31.0 L (37.2-46.3) % Neutrophils # 8.53 H (1.80-7.70) X 10*3/uL
[2023-08-14] MEDS: ACETAMINOPHEN IV (For NPO) 1,000 MG in EMPTY BAG 1 BAG IVPB SCH (16:26)
[2023-08-14] MEDS: MAGNESIUM SULFATE-D5W PMX 1 GM in DEXTROSE/WATER 1 100ML.BAG IVPB SCH (20:14)
[2023-08-15] MEDS: TAMSULOSIN 0.4 MG CAP.ER.24H PO STA (06:29)
[2023-08-15 09:13] VITALS: RESP 16
--- NOTE | 2023-08-15 09:58 | P.GSCN ---
History of Present Illness Consult date: 08/15/23 Reason for Consult: urinary retention History of present illness: This a 47-year-old female status post Nelly-en-Y gastric bypass on August 11. Urology is consulted for urinary retention. Patient had a catheter removed yesterday, she is now able to void small amounts her postvoid residual this morning is 330 mL. Denies any previous history of urinary retention. Denies any voiding dysfunction at baseline. No history of kidney stones, recurrent UTIs or gross hematuria. She indicated she does have the urge to void but is only able to void small amounts Past Medical History Past Medical History: Asthma, Fibromyalgia, GERD/Reflux, Osteoarthritis (OA), Pulmonary Embolus (PE), Sleep Apnea/CPAP/BIPAP Additional Past Medical History / Comment(s): Hiatal hernia, KRISHNA without device, History of Any Multi-Drug Resistant Organisms: None Reported Past Surgical History: Bariatric Surgery, Cholecystectomy, Hernia Repair, Joint Replacement, Orthopedic Surgery, Tubal Ligation Additional Past Surgical History / Comment(s): bilateral knee replacements 2016,2019. sleeve gastrectomy 11-13-21 Past Anesthesia/Blood Transfusion Reactions: No Reported Reaction Additional Past Anesthesia/Blood Transfusion Reaction / Comm: No blood transfusion Smoking Status: Never smoker - Past Family History Mother Family Medical History: No Reported History Medications and Allergies Home Medications Medication Instructions Recorded Confirmed Type Beclomethasone Dipropionate [Qvar 2 puff INHALATION RT-BID PRN 10/12/20 08/12/23 History 80mcg Redihaler] HYDROcodone/APAP 10-325MG [[place] 1 tab PO QID PRN 05/03/21 08/12/23 History 10-325] Omeprazole [PriLOSEC] 40 mg PO DAILY #30 cap 12/29/22 08/12/23 Rx Allergies Allergy/AdvReac Type Severity Reaction Status Date / Time adhesive Allergy Rash/Hives Verified 08/12/23 10:45 tramadol Allergy Nausea & Verified 08/12/23 10:45 Vomiting & Diarrhea Surgical - Exam Vital Signs Temp Pulse Resp BP Pulse Ox 97.0 F L 69 18 107/54 100 08/12/23 10:40 08/12/23 10:40 08/12/23 10:40 08/12/23 10:40 08/12/23 10:40 - General no distress, no pain - Eyes normal ocular movement, no pale - ENT normal nares, normal mucosa - Respiratory normal expansion, normal respiratory effort - Abdomen Abdomen: soft, non tender - Psychiatric oriented to time, oriented to person, oriented to place Results - Labs 08/14/23 05:42 08/13/23 05:09 Assessment and Plan Assessment: 47-year-old female with postoperative renal urinary retention. Retention was likely related to narcotic pain medications and recent anesthetics. No previous history of urinary retention -Continue to trend postvoid residual, recommend straight cathing for PVR greater than 400 mL -Continue Flomax
[2023-08-15 11:16] LABS: Basophils # (A) 0.01 X 10*3/uL (0.00-0.10); Basophils % (A) 0.2 %; Eosinophils # (A) 0.16 X 10*3/uL (0.04-0.35); Eosinophils % (A) 2.7 %; HCT 30.1 % (37.2-46.3); HGB 9.6 g/dL (12.0-15.0); Lymphocytes # (A) 1.13 X 10*3/uL (0.90-5.00); Lymphocytes % (A) 19.2 %; MCH 28.9 pg (27.0-32.0); MCHC 31.9 g/dL (32.0-37.0); MCV 90.7 FL (80.0-97.0); Mean Platelet Volume 11.5 FL (9.5-12.2); Monocytes # (A) 0.27 X 10*3/uL (0.20-1.00); Monocytes % (A) 4.6 %; NRBC Per 100 WBC 0 X 10*3/uL (0.00-0.01); Neutrophils % (A) 72.8 %; Platelet Count 175 X 10*3/uL (140-440); RBC 3.32 X 10*6/uL (4.10-5.20); RDW 14.2 % (11.5-14.5)
--- NOTE | 2023-08-15 13:14 | P.DS ---
Providers Date of admission: 08/12/23 09:41 Expected date of discharge: 08/15/23 Attending physician: Hilda Tineo Consults: 08/12/23 08:36 Consult Physician Routine Consulting Provider: [facility] Consult Reason/Comments: TIVA for gastric bypass Do you want consulting provider notified?: Yes 08/14/23 10:08 Consult Physician Routine Consulting Provider: Win Garg Consult Reason/Comments: urinary retention Do you want consulting provider notified?: Yes [facility] Course: Discharge diagnosis 1. Morbid obesity due to excess calories 2. Body mass index of 44.3, initial 3. Chronic obstructive pulmonary disease with asthma 4. Fibromyalgia 5. Obstructive sleep apnea 6. Osteoarthritis of the knees 7. Gastroesophageal reflux disease. 8. Osteoarthritis lower back 9. Osteoarthritis of the hip 10. DVT 11. Speak french and communicates with color maker 12. Anemia 13. Iron deficiency anemia 14. Calcium deficiency 15. Vitamin A deficiency 16. Hyperparathyroidism 17. Gastritis 18. Urinary retention resolved Hospital course Venessa Romo is a 47-year-old female who comes with lifelong morbid obesity. Patient is status post robotic laparoscopic conversion from sleeve gastrectomy to Nelly-en-Y gastric bypass. Patient's pain is controlled. She is tolerating diet. Her upper GI showed no evidence of leak or obstruction. She is having bowel movements and flatus. She has been up and ambulating her urinary retention has resolved. She is urinating without difficulty. Patient is afebrile. She is stable for discharge. Physician Rn Chronic note has been reviewed by physician. Signing provider agrees with the documented findings, assessment, and plan of care. Patient Condition at Discharge: Stable Plan - Discharge Summary Discharge Rx Participant: No New Discharge Prescriptions: New bisacodyL [Dulcolax] 5 mg PO DAILY PRN #10 tab PRN Reason: Constipation Simethicone 40 mg/0.6 ml Drops [Mylicon Drops] 40 mg PO PCHS PRN #30 ml PRN Reason: Gas Omeprazole [PriLOSEC] 40 mg PO DAILY #90 cap Ondansetron Odt [Zofran Odt] 4 mg PO Q8HR PRN #9 tab PRN Reason: Nausea Continue Beclomethasone Dipropionate [Qvar 80mcg Redihaler] 2 puff INHALATION RT-BID PRN PRN Reason: Shortness Of Breath HYDROcodone/APAP 10-325MG [[place] 10-325] 1 tab PO QID PRN PRN Reason: Pain Discontinued Omeprazole [PriLOSEC] 40 mg PO DAILY #30 cap Discharge Medication List Beclomethasone Dipropionate [Qvar 80mcg Redihaler] 2 puff INHALATION RT-BID PRN 10/12/20 [History] HYDROcodone/APAP 10-325MG [[place] 10-325] 1 tab PO QID PRN 05/03/21 [History] Omeprazole [PriLOSEC] 40 mg PO DAILY #90 cap 08/15/23 [Rx] Ondansetron Odt [Zofran Odt] 4 mg PO Q8HR PRN #9 tab 08/15/23 [Rx] Simethicone 40 mg/0.6 ml Drops [Mylicon Drops] 40 mg PO PCHS PRN #30 ml 08/15/23 [Rx] bisacodyL [Dulcolax] 5 mg PO DAILY PRN #10 tab 08/15/23 [Rx] Follow [facility]ment[facility] [place] [facility] [place] [facility]23 2:00 pm Activity/Diet/Wound Care/Special Instructions: Liquid diet only for 2 weeks No lifting over 4 pounds in 4 weeks, May Shower. No soaking in bath tubs for 2 weeks Please notify your surgeon if you develop nausea and vomiting including new onset of abdominal pain. Continue to use incentive spirometry to prevent pneumonias. Please continue to ambulate at home to prevent blood clots in legs. Follow-up at the bariatric center. May shower. Dressings to be discontinued by surgeon in the office. Drink 64 oz of fluid daily. Start protein shakes on . Notify bariatric center for temp over 101.0, increased pain, drainage from incisions. No straws or carbonated beverages. Liquid diet only. Sugar content should be less than 6 g to avoid dumping syndrome. Take MOM for constipation. CRUSH, OPEN, OR CUT TABLETS LARGER THAN A SIZE OF A TIC TAC Discharge Disposition: HOME SELF-CARE
[2023-08-15 15:12] VITALS: BP 105/66; PULSE 89; TEMP 98.2
== END 2023-08-15 14:40 | disposition home or self-care (01) | DRG 403 ==
LOC: 2ORMAIN 09:41 → 4SSUR 17:29
PROVIDERS: ADMIT Surgery Plastic and Reconstructive Surgery; ATTEND Surgery Plastic and Reconstructive Surgery
PROC: 0DB64Z3 Excision of Stomach, Percutaneous Endoscopic Approach, Vertical (ICD-10-PCS; 2023-08-12)
PROC: 0DJ08ZZ Inspection of Upper Intestinal Tract, Via Natural or Artificial Opening Endoscopic (ICD-10-PCS; 2023-08-12)
PROC: 8E0WXBZ Computer Assisted Procedure of Trunk Region (ICD-10-PCS; 2023-08-12)
PROC: 0D164ZA Bypass Stomach to Jejunum, Percutaneous Endoscopic Approach (ICD-10-PCS; principal; 2023-08-12 12:00)
DX: E66.01 Morbid (severe) obesity due to excess calories (principal); Z68.35 Body mass index [BMI] 35.0-35.9, adult; D50.9 Iron deficiency anemia, unspecified; E21.3 Hyperparathyroidism, unspecified; E50.9 Vitamin A deficiency, unspecified; E58 Dietary calcium deficiency; G47.33 Obstructive sleep apnea (adult) (pediatric); K44.9 Diaphragmatic hernia without obstruction or gangrene; M47.9 Spondylosis, unspecified; R33.0 Drug induced retention of urine; J44.89 Other specified chronic obstructive pulmonary disease; K21.9 Gastro-esophageal reflux disease without esophagitis; K29.70 Gastritis, unspecified, without bleeding; M16.10 Unilateral primary osteoarthritis, unspecified hip; M17.0 Bilateral primary osteoarthritis of knee; M79.7 Fibromyalgia; T40.605A Adverse effect of unspecified narcotics, initial encounter; Z86.711 Personal history of pulmonary embolism; Z96.653 Presence of artificial knee joint, bilateral; Z86.718 Personal history of other venous thrombosis and embolism; Z79.899 Other long term (current) drug therapy; Z28.21 Immunization not carried out because of patient refusal
CPT/HCPCS: 74240; 80051; 81025; 82310; 82565; 83735; 84100; 84520; 85025; 86850; 86900; 86901; 94640; 94760

== ENCOUNTER → 2023-08-21 | Outpatient (CLI) | payer OTHER ==
--- NOTE | 2023-08-21 15:28 | P.BASOAP ---
Subjective Progress Note Date: 08/21/23 NO GERD. Has appropriate pain. Has constipation. Needs lactulose. Lost 20 pounds. She wants to get to 140 pounds. Assessment/Plan Plan: Date: Initial Weight: 101.151 kg Initial BMI: Current Weight: Current BMI: Type of Surgery: Total Volume in Band: Previous Volume: Volume Removed: Volume Added: Band Size:
[2023-08-21 16:56] VITALS: BP 136/78; PULSE 90; RESP 16; TEMP 98.2; BMI 33.3
== END ==
LOC: BARWHC3 13:48
PROVIDERS: ATTEND Surgery Plastic and Reconstructive Surgery
DX: E66.9 Obesity, unspecified (principal); K59.00 Constipation, unspecified; R94.31 Abnormal electrocardiogram [ECG] [EKG]; J45.40 Moderate persistent asthma, uncomplicated; Z71.3 Dietary counseling and surveillance; Z98.84 Bariatric surgery status; Z90.3 Acquired absence of stomach [part of]; Z91.048 Other nonmedicinal substance allergy status; Z88.5 Allergy status to narcotic agent; Z68.33 Body mass index [BMI] 33.0-33.9, adult; Z79.899 Other long term (current) drug therapy
CPT/HCPCS: 97802; G0463; 99211

== ENCOUNTER → 2023-09-11 | Outpatient (CLI) | payer OTHER ==
[2023-09-11 16:40] LABS: INR 0.9 (<1.2); Partial Thromboplastin Time 26.3 sec (22.0-30.0); Prothrombin Time 10.3 sec (10.0-12.5)
[2023-09-11 19:13] LABS: HCT 37.6 % (37.2-46.3); HGB 11.8 g/dL (12.0-15.0); MCH 28.6 pg (27.0-32.0); MCHC 31.4 g/dL (32.0-37.0); MCV 91.3 FL (80.0-97.0); Mean Platelet Volume 11.2 FL (9.5-12.2); NRBC Per 100 WBC 0 X 10*3/uL (0.00-0.01); Platelet Count 223 X 10*3/uL (140-440); RBC 4.12 X 10*6/uL (4.10-5.20); RDW 14.6 % (11.5-14.5)
[2023-09-12 04:13] LABS: Prealbumin 17.4 mg/dL (18.0-42.0)
[2023-09-12 04:44] LABS: Chol/HDL Ratio 2.45 Ratio; VLDL Calculation 17.56 mg/dL (5.00-40.00)
[2023-09-12 04:45] LABS: % Iron Saturation 15.67 (12.00-45.00); ALT 14 U/L (8-44); AST 15 U/L (13-35); Albumin 4.3 g/dL (3.8-4.9); Albumin/Globulin Ratio 1.59 Ratio (1.60-3.17); Alkaline Phosphatase 93 U/L (41-126); Blood Urea Nitrogen 10.2 mg/dL (9.0-27.0); Calcium 9.4 mg/dL (8.7-10.3); Carbon Dioxide 20.6 mmol/L (21.6-31.8); Chloride 106 mmol/L (96-109); Globulin 2.7 g/dL (1.6-3.3); Glucose 92 mg/dL (70-110); Iron 50 UG/DL (50-170); LDL Cholesterol,Calculated 51.7 mg/dL (0.0-131.0); Magnesium 2.1 mg/dL (1.5-2.4); Phosphorus 3.1 mg/dL (2.4-5.1); Potassium 4.1 mmol/L (3.5-5.5); Sodium 140 mmol/L (135-145); Total Bilirubin 0.4 mg/dL (0.3-1.2); Total Iron Binding Capacity 319 UG/DL (228-460)
[2023-09-12 12:55] LABS: Zinc, Serum 90 ug/dL (60-130)
[2023-09-13 05:53] LABS: Vitamin A 42 ug/dL (38-106)
== END | disposition home or self-care (01) ==
LOC: LABWHC1 15:55
PROVIDERS: ATTEND Surgery Plastic and Reconstructive Surgery
DX: E66.01 Morbid (severe) obesity due to excess calories (principal); E89.1 Postprocedural hypoinsulinemia; D50.8 Other iron deficiency anemias; K91.2 Postsurgical malabsorption, not elsewhere classified; E44.0 Moderate protein-calorie malnutrition; E45 Retarded development following protein-calorie malnutrition; E55.9 Vitamin D deficiency, unspecified; K74.1 Hepatic sclerosis; N19 Unspecified kidney failure; T56.894A Toxic effect of other metals, undetermined, initial encounter; K50.90 Crohn's disease, unspecified, without complications
CPT/HCPCS: 36415; 80053; 80061; 82306; 82525; 82607; 82728; 82746; 83036; 83540; 83550; 83735; 83970; 84100; 84134; 84255; 84425; 84443; 84590; 84630; 85027; 85610; 85730

== ENCOUNTER → 2023-09-11 | Outpatient (CLI) | payer OTHER ==
[2023-09-11 15:23] VITALS: BP 106/65; PULSE 103; RESP 14; TEMP 98
--- NOTE | 2023-09-11 15:26 | P.PN ---
Subjective Progress Note Date: 09/11/23 She has severe constipation. SHe has a bump when she eats. NO heart burn. Has pain at the LUQ. Had new heartburn 1 year after. She can sleep at night. Her reflux was worse at night. She takes [place]. SHe opiates induced constipation. PRescribed colace and pericolace. Objective - Vital Signs Vital signs: Vital Signs Temp 98.0 F 09/11/23 14:48 Pulse 103 H 09/11/23 14:48 Resp 14 09/11/23 14:48 BP 106/65 09/11/23 14:48 Pulse Ox FiO2 Intake & Output 09/10/23 09/11/23 09/11/23 18:59 06:59 18:59 Weight 76.204 kg
[2023-09-11 18:32] VITALS: BMI 33.9
== END | disposition home or self-care (01) ==
LOC: BARWHC3 14:07
PROVIDERS: ATTEND Surgery Plastic and Reconstructive Surgery
DX: E66.01 Morbid (severe) obesity due to excess calories (principal); K59.00 Constipation, unspecified; Z71.3 Dietary counseling and surveillance; Z88.5 Allergy status to narcotic agent; Z91.09 Other allergy status, other than to drugs and biological substances; Z68.33 Body mass index [BMI] 33.0-33.9, adult
CPT/HCPCS: 97803; G0463; 99211

== ENCOUNTER → 2023-11-20 | Outpatient (CLI) | payer OTHER ==
[2023-11-20 16:48] LABS: INR 0.9 (<1.2); Prothrombin Time 10.1 sec (10.0-12.5)
[2023-11-20 18:44] LABS: HCT 35.8 % (37.2-46.3); HGB 11.3 g/dL (12.0-15.0); MCH 29.1 pg (27.0-32.0); MCHC 31.6 g/dL (32.0-37.0); MCV 92.3 FL (80.0-97.0); Mean Platelet Volume 11.4 FL (9.5-12.2); NRBC Per 100 WBC 0 X 10*3/uL (0.00-0.01); Platelet Count 250 X 10*3/uL (140-440); RBC 3.88 X 10*6/uL (4.10-5.20); RDW 13.4 % (11.5-14.5); WBC 6.27 X 10*3/uL (4.50-10.00)
[2023-11-20 21:34] LABS: % Iron Saturation 6.99 (12.00-45.00); Chol/HDL Ratio 2.07 Ratio; Iron 26 UG/DL (50-170); LDL Cholesterol,Calculated 43.4 mg/dL (0.0-131.0); Magnesium 2.2 mg/dL (1.5-2.4); Phosphorus 3.5 mg/dL (2.4-5.1); Total Iron Binding Capacity 372 UG/DL (228-460); VLDL Calculation 16.48 mg/dL (5.00-40.00)
[2023-11-20 21:35] LABS: Ferritin 18.6 ng/mL (10.0-291.0)
[2023-11-20 21:44] LABS: ALT 86 U/L (8-44); AST 80 U/L (13-35); Albumin 4.3 g/dL (3.8-4.9); Albumin/Globulin Ratio 1.48 Ratio (1.60-3.17); Alkaline Phosphatase 172 U/L (41-126); BUN/Creat Ratio 13.33 Ratio (12.00-20.00); Carbon Dioxide 21.2 mmol/L (21.6-31.8); Chloride 104 mmol/L (96-109); Globulin 2.9 g/dL (1.6-3.3); Glucose 97 mg/dL (70-110); Potassium 4.5 mmol/L (3.5-5.5); Sodium 139 mmol/L (135-145); Total Bilirubin 0.3 mg/dL (0.3-1.2); Total Protein 7.2 g/dL (6.2-8.2)
[2023-11-20 22:09] LABS: Prealbumin 15.2 mg/dL (18.0-42.0)
[2023-11-21 12:37] LABS: Zinc, Serum 80 ug/dL (60-130)
[2023-11-22 11:14] LABS: Vit B1(Thiamine) 64 ug/L (38-122)
== END | disposition home or self-care (01) ==
LOC: LABWHC1 16:00
PROVIDERS: ATTEND Surgery Plastic and Reconstructive Surgery
DX: E66.01 Morbid (severe) obesity due to excess calories (principal); E89.1 Postprocedural hypoinsulinemia; D50.8 Other iron deficiency anemias; E44.0 Moderate protein-calorie malnutrition; E45 Retarded development following protein-calorie malnutrition; E44.1 Mild protein-calorie malnutrition; E55.9 Vitamin D deficiency, unspecified; K74.1 Hepatic sclerosis; N19 Unspecified kidney failure; T56.894A Toxic effect of other metals, undetermined, initial encounter; K50.90 Crohn's disease, unspecified, without complications
CPT/HCPCS: 36415; 80053; 80061; 82306; 82525; 82607; 82728; 82746; 83036; 83540; 83550; 83735; 83970; 84100; 84134; 84255; 84425; 84443; 84590; 84630; 85027; 85610; 85730

== ENCOUNTER 2024-01-02 09:32 | Emergency (ER) | payer OTHER ==
[2024-01-02 10:00] VITALS: RESP 18
--- NOTE | 2024-01-02 10:56 | ED ---
General Adult HPI - General Chief complaint: Upper Respiratory Infection Stated complaint: congestion Time Seen by Provider: 01/02/24 10:03 Source: patient Mode of arrival: ambulatory Limitations: no limitations - History of Present Illness Initial comments: 48 [id number] presents with fever, non-productive cough, and myalgia x 3 days which has been relieved by acetaminophen, denies shortness of breath, chest pain, abdominal pain, neck stiffness, and headache. Patient noted to have symptoms. Patient states that she had no significant contacts that is not sick. - Related Data Home Medications Medication Instructions Recorded Confirmed Beclomethasone Dipropionate [Qvar 2 puff INHALATION RT-BID PRN 10/12/20 11/20/23 80mcg Redihaler] HYDROcodone/APAP 10-325MG [[place] 1 tab PO QID PRN 05/03/21 11/20/23 10-325] Previous Rx's Medication Instructions Recorded Omeprazole [PriLOSEC] 40 mg PO DAILY #90 cap 08/15/23 Simethicone 40 mg/0.6 ml Drops 40 mg PO PCHS PRN #30 ml 08/15/23 [Mylicon Drops] bisacodyL [Dulcolax] 5 mg PO DAILY PRN #10 tab 08/15/23 Docusate [Colace] 100 mg PO BID #60 capsule 09/11/23 Sennosides/Docusate Sodium 1 each PO DAILY #30 tab 09/11/23 [Docusate Sodium-Sennosides Tab] Nystatin 100,000 Unit/gm Powd 1 applic TOPICAL BID #60 gm 11/20/23 [Mycostatin Powder] Sennosides/Docusate Sodium 1 each PO DAILY #90 tab 11/20/23 [Docusate Sodium-Sennosides Tab] Allergies Allergy/AdvReac Type Severity Reaction Status Date / Time adhesive Allergy Rash/Hives Verified 01/02/24 10:00 tramadol Allergy Nausea & Verified 01/02/24 10:00 Vomiting & Diarrhea Review of Systems ROS Statement: Those systems with pertinent positive or pertinent negative responses have been documented in the HPI. ROS Other: All systems not noted in ROS Statement are negative. Constitutional: Reports: fever, chills ENT: Reports: ear pain Respiratory: Reports: cough Musculoskeletal: Reports: arthralgia, myalgia Past Medical History Past Medical History: Asthma, Fibromyalgia, GERD/Reflux, Osteoarthritis (OA), Pulmonary Embolus (PE), Sleep Apnea/CPAP/BIPAP Additional Past Medical History / Comment(s): Hiatal hernia, KRISHNA without device, History of Any Multi-Drug Resistant Organisms: None Reported Past Surgical History: Bariatric Surgery, Cholecystectomy, Hernia Repair, Joint Replacement, Orthopedic Surgery, Tubal Ligation Additional Past Surgical History / Comment(s): bilateral knee replacements 2016,2019. sleeve gastrectomy 11-13-21 Bypass 08/12/23 Past Anesthesia/Blood Transfusion Reactions: No Reported Reaction Additional Past Anesthesia/Blood Transfusion Reaction / Comment(s): No blood transfusion Past Psychological History: Depression Smoking Status: Never smoker Past Alcohol Use History: None Reported Past Drug Use History: None Reported - Past Family History Mother Family Medical History: No Reported History General Exam Limitations: no limitations General appearance: alert, in no apparent distress Head exam: Present: atraumatic, normocephalic, normal inspection Eye exam: Present: normal appearance, PERRL, EOMI. Absent: scleral icterus, conjunctival injection, periorbital swelling ENT exam: Present: normal exam, mucous membranes moist Neck exam: Present: normal inspection, full ROM. Absent: tenderness, meningismus, lymphadenopathy Respiratory exam: Present: normal lung sounds bilaterally. Absent: respiratory distress, wheezes, rales, rhonchi, stridor Cardiovascular Exam: Present: regular rate, normal rhythm, normal heart sounds. Absent: systolic murmur, diastolic murmur, rubs, gallop, clicks GI/Abdominal exam: Present: soft, normal bowel sounds Course Vital Signs 01/02/24 09:58 Temperature 98.0 F Pulse Rate 70 Respiratory 18 Rate Blood Pressure 108/53 O2 Sat by Pulse 100 Oximetry Medical Decision Making - Medical Decision Making Was pt. sent in by a medical professional or institution (, PA, BOOSTER ASSEMBLER, urgent care, hospital, or correction...) When possible be specific @ -No Did you speak to anyone other than the patient for history (EMS, parent, family, police, friend...)? What history was obtained from this source @ -No Did you review nursing and triage notes (agree or disagree)? Why? @ -I reviewed and agree with nursing and triage notes Were old charts reviewed (outside hosp., previous admission, EMS record, old EKG, old radiological studies, urgent care reports/EKG's, correction records)? Report findings @ -No old charts were reviewed Differential Diagnosis (chest pain, altered mental status, abdominal pain women, abdominal pain men, vaginal bleeding, weakness, fever, dyspnea, syncope, headache, dizziness, GI bleed, back pain, seizure, CVA, palpatations, mental health, musculoskeletal)? @ -COVID 19, RSV, influenza, pneumonia, acute bronchitis, URI, this list is not all inclusive EKG interpreted by me (3pts min.). @ -None X-rays interpreted by me (1pt min.). @ -None done CT interpreted by me (1pt min.). @ -None done U/S interpreted by me (1pt. min.). @ -None done What testing was considered but not performed or refused? (CT, X-rays, U/S, labs)? Why? @ -None What meds were considered but not given or refused? Why? @ -None Did you discuss the management of the patient with other professionals (professionals i.e. , PA, BOOSTER ASSEMBLER, lab, RT, psych nurse, socially responsible investment adviser, fundraising coordinator, teacher, mounted police officer, foster care case manager)? Give summary @ -No Was smoking cessation discussed for >3mins.? @ -No Was critical care preformed (if so, how long)? @ -No Were there social determinants of health that impacted care today? How? (Homelessness, low income, unemployed, alcoholism, drug addiction, transportation, low edu. Level, literacy, decrease access to med. care, usp, rehab)? @ -No Was there de-escalation of care discussed even if they declined (Discuss DNR or withdrawal of care, Hospice)? DNR status @ -No What co-morbidities impacted this encounter? (DM, HTN, Smoking, COPD, CAD, Cancer, CVA, ARF, Chemo, Hep., AIDS, mental health diagnosis, sleep apnea, morbi d obesity)? @ -None Was patient admitted / discharged? Hospital course, mention meds given and route, prescriptions, significant lab abnormalities, going to OR and other pertinent info. @ -Disc charged patient has viral URI negative Cepheid, patient is no signs distress will use [id number] cough and cold medication Undiagnosed new problem with uncertain prognosis? @ -No Drug Therapy requiring intensive monitoring for toxicity (Heparin, Nitro, Insulin, Cardizem)? @ -No Were any procedures done? @ -No Diagnosis/symptom? @ -Viral URI Acute, or Chronic, or Acute on Chronic? @ -Acute Uncomplicated (without systemic symptoms) or Complicated (systemic symptoms)? @ -Uncomplicated Side effects of treatment? @ -No Exacerbation, Progression, or Severe Exacerbation? @ -No Poses a threat to life or bodily function? How? (Chest pain, [place], [place], pneumonia, PE, COPD, DKA, ARF, appy, cholecystitis, CVA, Diverticulitis, Homicidal, Suicidal, threat to staff... and all critical care pts) @ -No - Lab Data Lab Results 01/02/24 Range/Units 11:01 Influenza Type A (PCR) Not Detected (Not Detectd) Influenza Type B (PCR) Not Detected (Not Detectd) RSV (PCR) Not Detected (Not Detectd) SARS-CoV-2 (PCR) Not Detected (Not Detectd) Disposition Clinical Impression: Viral infection Disposition: HOME SELF-CARE Condition: Stable Is patient prescribed a controlled substance at d/c from ED?: No When asked, does pt state using other controlled substances?: No If prescribed controlled substance>3 days was MAPS reviewed?: No If opioid is for acute pain is fill amount 7 days or less?: No If Rx opioid, was Start Talking consent form obtained?: No Referrals: Sondra Ortiz MD [Primary Care Provider] - 1-2 days
[2024-01-02 13:01] VITALS: BP 122/66; PULSE 76; TEMP 97.9
== END 2024-01-02 13:02 | disposition home or self-care (01) ==
LOC: EC 09:32
CPT/HCPCS: 87636; 99283

== ENCOUNTER → 2024-02-12 | Outpatient (CLI) | payer OTHER ==
[2024-02-12 18:07] LABS: INR 0.9 (<1.2); Partial Thromboplastin Time 25.2 sec (22.0-30.0); Prothrombin Time 10.4 sec (10.0-12.5)
[2024-02-13 02:27] LABS: HCT 36.4 % (37.2-46.3); HGB 11.6 g/dL (12.0-15.0); MCH 29.2 pg (27.0-32.0); MCHC 31.9 g/dL (32.0-37.0); MCV 91.7 FL (80.0-97.0); Mean Platelet Volume 11.8 FL (9.5-12.2); NRBC Per 100 WBC 0 X 10*3/uL (0.00-0.01); Platelet Count 246 X 10*3/uL (140-440); RBC 3.97 X 10*6/uL (4.10-5.20); RDW 13.8 % (11.5-14.5); WBC 5.79 X 10*3/uL (4.50-10.00)
[2024-02-13 04:01] LABS: % Iron Saturation 8.29 (12.00-45.00); Ferritin 16.9 ng/mL (10.0-291.0); Iron 33 UG/DL (50-170); Magnesium 2.2 mg/dL (1.5-2.4); Phosphorus 3.9 mg/dL (2.4-5.1); Total Iron Binding Capacity 398 UG/DL (228-460)
[2024-02-13 04:55] LABS: BUN/Creat Ratio 17.86 Ratio (12.00-20.00); Blood Urea Nitrogen 12.5 mg/dL (9.0-27.0); Chol/HDL Ratio 2.32 Ratio; Glucose 90 mg/dL (70-110); LDL Cholesterol,Calculated 59.9 mg/dL (0.0-131.0)
[2024-02-13 04:56] LABS: ALT 76 U/L (8-44); AST 58 U/L (13-35); Albumin 4.3 g/dL (3.8-4.9); Albumin/Globulin Ratio 1.59 Ratio (1.60-3.17); Alkaline Phosphatase 155 U/L (41-126); Calcium 9.2 mg/dL (8.7-10.3); Carbon Dioxide 25.2 mmol/L (21.6-31.8); Chloride 104 mmol/L (96-109); Globulin 2.7 g/dL (1.6-3.3); Potassium 4.5 mmol/L (3.5-5.5); Sodium 140 mmol/L (135-145); Total Bilirubin 0.3 mg/dL (0.3-1.2)
[2024-02-14 07:47] LABS: Vitamin A 45 ug/dL (38-106)
[2024-02-14 12:50] LABS: Zinc, Serum 95 ug/dL (60-130)
[2024-02-14 15:09] LABS: Vit B1(Thiamine) 68 ug/L (38-122)
== END | disposition home or self-care (01) ==
LOC: LABWHC1 16:25
PROVIDERS: ATTEND Surgery Plastic and Reconstructive Surgery
CPT/HCPCS: 36415; 80053; 80061; 82306; 82525; 82607; 82728; 82746; 83036; 83540; 83550; 83735; 83970; 84100; 84255; 84425; 84443; 84590; 84630; 85027; 85610; 85730

== ENCOUNTER → 2024-02-12 | Outpatient (CLI) | payer OTHER ==
[2024-02-12 15:48] VITALS: BP 133/67; PULSE 74; RESP 16; TEMP 98; BMI 30.4
--- NOTE | 2024-02-12 16:01 | P.BASOAP ---
Subjective Progress Note Date: 02/12/24 She has panniculititis. She has constipation. She is drinking 2 drinks a day. She continues to lose weight. Docusate sent. Needs labs. Objective - Vital Signs Vital signs: Vital Signs Temp 98.0 F 02/12/24 15:41 Pulse 74 02/12/24 15:41 Resp 16 02/12/24 15:41 BP 133/67 02/12/24 15:41 Pulse Ox FiO2 Intake & Output 02/11/24 02/12/24 02/12/24 18:59 06:59 18:59 Weight 69.4 kg Assessment/Plan Plan: Date: 02/12/24 Initial Weight: 101.151 kg Initial BMI: 44.2 Current Weight: 69.4 kg Current BMI: 30.4 Type of Surgery: Total Volume in Band: Previous Volume: Volume Removed: Volume Added: Band Size:
== END ==
LOC: BARWHC3 14:46
PROVIDERS: ATTEND Surgery Plastic and Reconstructive Surgery
DX: E66.01 Morbid (severe) obesity due to excess calories (principal); M79.3 Panniculitis, unspecified; Z88.5 Allergy status to narcotic agent; Z91.048 Other nonmedicinal substance allergy status; Z68.30 Body mass index [BMI] 30.0-30.9, adult
CPT/HCPCS: 99211

== ENCOUNTER → 2024-04-08 | Outpatient (CLI) | payer OTHER ==
--- NOTE | 2024-04-08 15:05 | MM ---
Reason for Exam: Follow-up at short interval from prior study. Last screening mammogram was performed 10 month(s) ago. Patient History: Menarche at age 10. First Full-Term at age 17. Premenopausal. Risk Values: Gwen 5 year model risk: 0.5%. NCI Lifetime model risk: 5.2%. Prior Study Comparison: 05/24/2022 Bilateral MG 3D screening mammo w/cad, [facility]. 06/19/2023 Bilateral MG 3D screening mammo w/cad, [facility]. 06/26/2023 Right MG 3D work up w/cad RT, [facility]. Tissue Density: Right: The breasts are extremely dense, which lowers the sensitivity of mammography. Findings: Analyzed By CAD. Pattern appears stable. Suspicious calcifications are not identified. No increasing calcifications are identified. No suspicious groups of microcalcifications, spiculated or lobular masses, architectural distortion or other secondary signs of malignancy are mammographically apparent. Overall Assessment: Probably benign, BI-RAD 3 Management: Diagnostic Mammogram of both breasts in 3 months. A negative mammogram report should not preclude additional follow up of suspicious palpable abnormalities. Patient should continue monthly self breast exam. A clinical breast exam by your physician is recommended on an annual basis and results should be correlated with mammographic findings. Note on Gwen scores and lifetime risk: 1. A Gwen score greater than 3% is considered moderate risk. If this is the case, consider specialist referral to assess eligibility for a risk reducing agent. 2. If overall lifetime risk for the development of breast cancer is 20% or higher, the patient may qualify for future screening with alternating mammogram and breast MRI. [facility], , 04/08/2024 3:02 PM. Electronically signed and approved by: Teja Richmond D.O. Radiologis
== END | disposition home or self-care (01) ==
LOC: RADMAMWWP 12:38
PROVIDERS: ATTEND Family Medicine
DX: R92.8 Other abnormal and inconclusive findings on diagnostic imaging of breast (principal); R92.341 Mammographic extreme density, right breast
CPT/HCPCS: 77065; G0279; 77061